=== PATIENT | female | born 1975 | race Caucasian/White ===

== ENCOUNTER 2017-02-11 15:24 | Observation (INO) ==
[2017-02-11 16:22] LABS: INR 1.3
[2017-02-11 16:31] LABS: BUN/Creatinine Ratio 12 (6-26); Basophils % 0.4 %; Blood Urea Nitrogen 10 mg/dL (7-20); Calcium 9.8 mg/dL (8.6-10.8); Carbon Dioxide 24 mEq/L (19-29); Chloride 106 mEq/L (98-109); Eosinophils # 0.2 K/mcL (0.0-0.6); Glucose 128 mg/dL (70-99); Hemoglobin 10.5 g/dL (11.5-15.4); Immature Granulocytes % 0.3 % (0-4); Lymphocytes # 1.4 K/mcL (0.6-4.6); Lymphocytes % 19.2 %; Mean Corpuscular HGB Conc 29.2 g/dL (31.6-35.5); Mean Corpuscular Hemoglobin 22.4 pg (28.0-33.3); Mean Corpuscular Volume 76.9 fL (83.0-100.0); Mean Platelet Volume 9.8 fL (9.4-12.4); Monocytes # 0.6 K/mcL (0.0-1.3); Neutrophils # 5.3 K/mcL (1.6-8.9); Osmolality,Calculated 285 (280-300); Platelet Count 336 K/mcL (140-400); Potassium 3.7 mEq/L (3.5-4.5); Red Blood Count 4.68 M/mcL (3.82-4.97); Red Cell Distribution Width 17.2 % (11.5-14.5); Segmented Neutrophils % 70.1 %; Sodium 137 mEq/L (136-145); eGFR For African Americans > 60 (> 60); eGFR For Non-African Americans > 60 (> 60)
--- NOTE | 2017-02-11 16:58 | Emergency Department Note ---
Disposition Clinical Impression: Chest pain Qualifiers: Chest pain type: unspecified Qualified Code(s): R07.9 - Chest pain, unspecified Abdominal pain Qualifiers: Abdominal location: epigastric Qualified Code(s): R10.13 - Epigastric pain Intractable nausea and vomiting Qualifiers: Vomiting type: unspecified Qualified Code(s): R11.2 - Nausea with vomiting, unspecified Disposition: Admitted As Inpatient Condition: Good Chest Pain HPI - General Chief Complaint: ED Chest Pain Stated Complaint: Chest Pains / pressure Time Seen by Provider: 02/11/17 16:19 Source: patient Mode of arrival: ambulatory Limitations: no limitations Vital Signs Reviewed: Yes Nursing Notes Reviewed: Yes - History of Present Illness HPI Narrative: 41-year-old female presents with concerns of intermittent chest pain and pressure over the past 4 days. Patient states that the pain became progressively worse over the past 12 hours. No history of pain like this in the past. She does have a history of gastric bypass. No history of peptic ulcer disease. She does report the pain did worsen after eating a portobello mushroom at one point however the pain is present without eating as well. Patient denies associated shortness of breath although she does have nausea without vomiting. Patient denies palpitations, diaphoresis. Severity scale (1-10): 8 - Related Data Home Medications Medication Instructions Recorded Confirmed ARIPiprazole [Abilify] 10 mg PO DAILY 02/11/17 02/11/17 Albuterol Sulfate [Ventolin Hfa] 2 puff IH Q4-6H PRN 02/11/17 02/11/17 Atorvastatin [Lipitor] 10 mg PO HS 02/11/17 02/11/17 Docusate [Colace] 100 mg PO BID PRN 02/11/17 02/11/17 Gabapentin [Neurontin] 600 mg PO QID 02/11/17 02/11/17 Loratadine [Claritin] 10 mg PO DAILY 02/11/17 02/11/17 Oxycodone HCl 10 mg PO QID 02/11/17 02/11/17 Prazosin [Minipress] 1 mg PO HS 02/11/17 02/11/17 Quetiapine Fumarate [Seroquel Xr] 100 mg PO HS 02/11/17 02/11/17 Ranitidine HCl [Zantac] 150 mg PO BID 02/11/17 02/11/17 cloNIDine HCl [CloNIDine HCl] 0.1 mg PO HS 02/11/17 02/11/17 Allergies Allergy/AdvReac Type Severity Reaction Status Date / Time No Known Allergies Allergy Verified 02/11/17 15:29 All systems ED: reviewed and negative except as stated. Limitations: ROS unobtainable due to patients medical condition Cardiovascular: Reports: chest pain. Denies: palpitations, dyspnea on exertion Respiratory: Reports: cough. Denies: dyspnea, wheezes Gastrointestinal: Reports: abdominal pain, nausea, vomiting. Denies: diarrhea Chest Pain PMH - Past Medical History Medical history: Reports: asthma, diabetes, hyperlipidemia Psychiatric history: Reports: anxiety, depression - Social History Smoking Status: Current every day smoker Alcohol use: Reports: none Drug use: Reports: none Physical Exam General: Alert and in no acute distress Skin: Warm, dry, intact Head: Normocephalic and atraumatic Neck: Supple, trachea midline and no tenderness Cardiovascular: RRR, no murmur, normal perfusion Respiratory: CTAB, no wheezing, cough, or respiratory distress Musculoskeletal: Normal strength, no tenderness, swelling or deformity GI: Soft, mild epigastric tenderness to palpation without evidence of rigidity, guarding, or rebound. nondistended. Bowel sounds present Neuro: A&O to person, place, time and situation. No focal deficits noted on exam Psychiatric: cooperative and appropriate mood and affect. - General General appearance: alert, in no apparent distress Course Vital Signs Temperature 98.2 F 02/11/17 15:26 Pulse Rate 95 02/11/17 15:26 Respiratory Rate 16 02/11/17 15:26 Blood Pressure 130/79 02/11/17 15:26 O2 Sat by Pulse Oximetry 95 02/11/17 15:26 Temperature 98.5 F 02/11/17 21:54 Pulse Rate 74 02/11/17 21:54 Respiratory Rate 16 02/11/17 21:54 Blood Pressure 135/76 02/11/17 21:54 O2 Sat by Pulse Oximetry 97 02/11/17 21:54 Oxygen Delivery Oxygen Delivery Room Air Chest Pain - MDM Narrative Medical decision making narrative: CT of the abdomen ordered secondary to patient's epigastric pain in the setting of a history of gastric bypass. Initial troponin negative. EKG showed normal sinus rhythm with rate of 94 without evidence of STEMI. Patient has heart score of 4. She will be admitted to the hospital for further care and evaluation. - Medical Records Medical records reviewed: Yes I reviewed the patient's medical records. - Lab Data Lab results reviewed: Yes I reviewed the patient's lab results. Result diagrams: 02/11/17 16:02 02/11/17 16:02 Lab Results 02/11/17 02/11/17 02/11/17 Range/Units 16:02 16:02 16:02 WBC 7.5 (4.3-11.1) K/mcL RBC 4.68 (3.82-4.97) M/mcL Hgb 10.5 L (11.5-15.4) g/dL Hct 36.0 (35.3-44.9) % MCV 76.9 L (83.0-100.0) fL MCH 22.4 L (28.0-33.3) pg MCHC 29.2 L (31.6-35.5) g/dL RDW 17.2 H (11.5-14.5) % Plt Count 336 (140-400) K/mcL MPV 9.8 (9.4-12.4) fL Immature Gran % 0.3 (0-4) % Seg Neutrophils % 70.1 % Lymphocytes % 19.2 % Monocytes % 8.0 % Eosinophils % 2.0 % Basophils % 0.4 % Neutrophils # 5.3 (1.6-8.9) K/mcL Lymphocytes # 1.4 (0.6-4.6) K/mcL Monocytes # 0.6 (0.0-1.3) K/mcL Eosinophils # 0.2 (0.0-0.6) K/mcL Basophils # 0.0 (0.0-0.2) K/mcL PT 14.0 H (9.4-12.1) Seconds INR 1.3 APTT 29.0 (26.0-36.0) Seconds Sodium 137 (136-145) mEq/L Potassium 3.7 (3.5-4.5) mEq/L Chloride 106 (98-109) mEq/L Carbon Dioxide 24 (19-29) mEq/L BUN 10 (7-20) mg/dL Creatinine 0.81 (0.57-1.11) mg/dL Est GFR ( Amer) > 60 (> 60) Est GFR (Non-Af Amer) > 60 (> 60) BUN/Creatinine Ratio 12 (6-26) Glucose 128 H (70-99) mg/dL Calculated Osmolality 285 (280-300) Calcium 9.8 (8.6-10.8) mg/dL Troponin I (0-0.03) ng/mL 02/11/17 02/11/17 Range/Units 16:02 19:13 WBC (4.3-11.1) K/mcL RBC (3.82-4.97) M/mcL Hgb (11.5-15.4) g/dL Hct (35.3-44.9) % MCV (83.0-100.0) fL MCH (28.0-33.3) pg MCHC (31.6-35.5) g/dL RDW (11.5-14.5) % Plt Count (140-400) K/mcL MPV (9.4-12.4) fL Immature Gran % (0-4) % Seg Neutrophils % % Lymphocytes % % Monocytes % % Eosinophils % % Basophils % % Neutrophils # (1.6-8.9) K/mcL Lymphocytes # (0.6-4.6) K/mcL Monocytes # (0.0-1.3) K/mcL Eosinophils # (0.0-0.6) K/mcL Basophils # (0.0-0.2) K/mcL PT (9.4-12.1) Seconds INR APTT (26.0-36.0) Seconds Sodium (136-145) mEq/L Potassium (3.5-4.5) mEq/L Chloride (98-109) mEq/L Carbon Dioxide (19-29) mEq/L BUN (7-20) mg/dL Creatinine (0.57-1.11) mg/dL Est GFR ( Amer) (> 60) Est GFR (Non-Af Amer) (> 60) BUN/Creatinine Ratio (6-26) Glucose (70-99) mg/dL Calculated Osmolality (280-300) Calcium (8.6-10.8) mg/dL Troponin I 0.00 0.00 (0-0.03) ng/mL - Radiology Data Radiology results reviewed: Yes I reviewed the patient's radiology results. Heart Score - Score History: Moderately Suspicious EKG: Normal Age: Less than 45 Risk Factors: Equal/Greater than 3 risk factor or history of atherosclerotic disease Troponin: Less than normal limit HEART Score Total: 3
[2017-02-11] MEDS ORDERED: Acetaminophen 325 MG TABLET PO ONE (17:32)
[2017-02-11] MEDS ORDERED: Nitroglycerin 0.4 MG TAB.SUBL SL PRN (17:32)
[2017-02-11] MEDS ORDERED: Ondansetron 4 MG/2 ML VIAL IVP ONE (18:45)
[2017-02-11] MEDS ORDERED: GI Cocktail 40 ML EACH PO ONE (18:46)
[2017-02-11] MEDS ORDERED: *HR* Morphine 2 MG/ML SYRINGE IVP ONE (18:46)
[2017-02-11] MEDS ORDERED: MetroNIDAZOLE 500 MG/100 ML 500 MG/100 ML BAG IVPB ONE (20:17)
--- NOTE | 2017-02-11 23:23 | Internal Med History&Physical ---
Date of Encounter: 02/11/17 Time of Encounter: 23:23 Assessment and Plan (1) Chest pain Current visit: Yes Status: Acute patient with no known prior hx of CAD comes in with chest pain with both typical and atypical features, she has significant risk factors that are concerning so it will be reasonable to order a stress test, her admission EKG was unremarkable for ischemia, troponin was unremarkable, will check lipid and A1c for risk stratification, will cycle troponin, telemonitor, NPO post midnight for stress test Qualifiers: Chest pain type: intercostal pain Qualified Code(s): R07.82 - Intercostal pain (2) Intractable nausea and vomiting Current visit: Yes Status: Acute she comes in with this and there are findings for inflammatory vs infectious process near her anastomoses, she received Abx in the ER but it is unclear if medications are warranted considering her normal vitals and labs, we will treat supportively for now whilst we continue to investigate and monitor Qualifiers: Vomiting type: unspecified Qualified Code(s): R11.2 - Nausea with vomiting , unspecified (3) Diabetes Current visit: Yes Status: Chronic she reports DM type 2 for which she used to be on insulin but she is currently off medications and is diet controlled after she lost a lot of weight post gastric bypass, we will check her A1c and proceed from there Qualifiers: Diabetes mellitus type: type 2 Diabetes mellitus complication status: with neurologic complications Diabetes mellitus complication detail: with polyneuropathy Diabetes mellitus termite inspector insulin use: without termite inspector use Qualified Code(s): E11.42 - Type 2 diabetes mellitus with diabetic polyneuropathy (4) GERD (gastroesophageal reflux disease) Current visit: Yes Status: Chronic will continue her home ranitidine Qualifiers: Esophagitis presence: without esophagitis Qualified Code(s): K21.9 - Gastro -esophageal reflux disease without esophagitis Internal Medicine - H&P: HPI Chief complaint: Chest pain Admitted From: Emergency Dept Plans for Post Hospital Care: Home History of present illness: Ms. Gallagher is a 41 year old female with a history of chronic back pain on opioids was brought in today for chest pressure. She reports feeling unwell for a couple of days now with intermittent chest pressure over the left side of her chest. This has been ongoing but she tried to pay it no mind. In addition she has also been having nausea, vomiting, inability to keep any food down, poor appetite and dry heaves. Today she was having dry heaves when she had resurgence of the chest pain so her mother asked her to come to the ER for further evaluation. She denies any radiation of her pain, the severity is 8/10 and is pressure-like/heaviness in character and has been constant since it returned today. She reports no radiation of the pain. She denies prior CAD hx or stress test. She reports diffuse abdominal pain in addition to her other symptoms, no change in bowel habits per patient. In the ER abdominal CT reported inflammatory vs infectious changes around her gastric anastomosis. She is being admitted for further workup. PAST MEDICAL/SURGICAL HISTORY DM type 2 currently diet controlled Asthma Non Hodgkin's Lymphoma as a child s/p chemo-radiation Osteomyelitis s/p right midtarsal amputation GERD Peripheral neuropathy Chronic back pain Gastric bypass surgery Anxiety Depression had a colonoscopy in [place] about a year ago with normal findings, prior to that she had a colonoscopy 7 years prior with finding of 3 polyps, SOCIAL HISTORY She has been smoking 1ppd to 1 and a half ppd since the age of 89 years old, she used to drink alcohol heavily but hardly drinks anymore. FAMILY HISTORY Mother has COPD, father of lung cancer, multiple family members on her mother' side have CAD, brother had CAD in his early 30's. Past Med Surg Social Fam HX - Past Medical History Medical history: asthma, diabetes, hyperlipidemia Psychiatric history: anxiety, depression - Social History Smoking Status: Current every day smoker Alcohol use: none Drug use: none - Family History Mother Living Status: Still Living Hx Family Cardiac Disorders: No Hx Family Respiratory Disorders: Yes (COPD) Internal Medicine - H&P: Meds ARIPiprazole [Abilify] 10 mg PO DAILY 02/11/17 [History] Albuterol Sulfate [Ventolin Hfa] 2 puff IH Q4-6H PRN 02/11/17 [History] Atorvastatin [Lipitor] 10 mg PO HS 02/11/17 [History] Docusate [Colace] 100 mg PO BID PRN 02/11/17 [History] Gabapentin [Neurontin] 600 mg PO QID 02/11/17 [History] Loratadine [Claritin] 10 mg PO DAILY 02/11/17 [History] Oxycodone HCl 10 mg PO QID 02/11/17 [History] Prazosin [Minipress] 1 mg PO HS 02/11/17 [History] Quetiapine Fumarate [Seroquel Xr] 100 mg PO HS 02/11/17 [History] Ranitidine HCl [Zantac] 150 mg PO BID 02/11/17 [History] cloNIDine HCl [CloNIDine HCl] 0.1 mg PO HS 02/11/17 [History] Allergies No Known Allergies Allergy (Verified 02/11/17 15:29) All Systems PM: A 10-system review of systems was performed and is negative for pertinent findings except as documented above in the HPI. - Constitutional Vitals: Temp Pulse Resp BP Pulse Ox 98.5 F 74 16 135/76 97 02/11/17 21:54 02/11/17 21:54 02/11/17 21:54 02/11/17 21:54 02/11/17 21:54 GENERAL: Adult female, lying in bed looking miserable, Alert, HEENT: NC/AT, EOMI, PERRLA, anicteric sclera, normal conjunctiva, supple, clear nares, dry mucous membranes, RESP: Lungs are clear to auscultation bilaterally, good AE bilaterally, No crackles or wheeze CARDIO: Normal hearts sounds; S1 and 2, RRR with no murmurs, no JVD, no ankle edema GI: Soft, full, tenderness around the epigastric area, no organomegaly felt, normal bowel sounds heard MUSCULOSKELETAL: grossly normal movements bilaterally, has right midtarsal amputation NEUROLOGIC: CN 2-12 intact grossly. No gross motor/sensory deficit appreciated, PSYCHIATRY: AAO x 3. Mood is fair, SKIN: no skin rash or ulcers noted Internal Med - H&P Results - Labs CBC & Chem 7: 02/12/17 03:55 02/12/17 03:55 - Diagnostic Studies Chest x-ray Status: image reviewed by me CT scan - abdomen Status: image reviewed by me
[2017-02-11] MEDS ORDERED: Naloxone 0.4 MG/ML INJ IVP PRN (23:44)
[2017-02-11] MEDS ORDERED: *HR* Dextrose 50 % in Water (Syg) 50 ML SYRINGE IVP PRN (23:51)
[2017-02-11] MEDS ORDERED: Dextrose Gel 15 GM PO PRN ×2 (23:51)
[2017-02-11] MEDS ORDERED: D5% in Water 1,000 ML IVC PRN (23:51)
[2017-02-11] MEDS ORDERED: Albuterol 2.5 MG/3 ML NEBULIZER IH PRN (23:51)
[2017-02-11] MEDS: Ondansetron 4 MG/2 ML VIAL IVP PRN (23:57)
[2017-02-12] MEDS: *HR* HYDROmorphone (PF) 1 MG/ML SYRINGE IVP PRN ×6 (00:10→22:30)
[2017-02-12] MEDS: Insulin LISPRO 300 UNITS/3 ML VIAL SQ SCH ×4 (00:34→17:55)
[2017-02-12] MEDS: Metoclopramide 10 MG/2 ML VIAL IVP PRN ×2 (03:19→20:25)
[2017-02-12 04:26] LABS: Hematocrit 31.6 % (35.3-44.9); Hemoglobin 9.2 g/dL (11.5-15.4); Mean Corpuscular HGB Conc 29.1 g/dL (31.6-35.5); Mean Corpuscular Hemoglobin 22.4 pg (28.0-33.3); Mean Corpuscular Volume 76.9 fL (83.0-100.0); Platelet Count 294 K/mcL (140-400); Red Blood Count 4.11 M/mcL (3.82-4.97); Segmented Neutrophils % 62.3 %
[2017-02-12 04:27] LABS: Basophils % 0.4 %; Eosinophils # 0.1 K/mcL (0.0-0.6); Eosinophils % 1.9 %; Immature Granulocytes % 0.4 % (0-4); Lymphocytes # 1.9 K/mcL (0.6-4.6); Lymphocytes % 24.9 %; Monocytes # 0.8 K/mcL (0.0-1.3); Monocytes % 10.1 %; Neutrophils # 4.6 K/mcL (1.6-8.9)
[2017-02-12 04:40] LABS: Hemoglobin A1C 5.6 %
[2017-02-12 04:50] LABS: BUN/Creatinine Ratio 11 (6-26); Blood Urea Nitrogen 8 mg/dL (7-20); Calcium 9.4 mg/dL (8.6-10.8); Carbon Dioxide 27 mEq/L (19-29); Chloride 105 mEq/L (98-109); Chol/HDL Ratio 10.5 (0-4.9); Cholesterol 209 mg/dL (< 200); Glucose 87 mg/dL (70-99); HDL Cholesterol 20 mg/dL (40-59); LDL Cholesterol,Calculated 155 mg/dL (0-99); Osmolality,Calculated 284 (280-300); Phosphorous 3.6 mg/dL (2.3-4.7); Potassium 3.7 mEq/L (3.5-4.5); Sodium 138 mEq/L (136-145); Triglycerides 170 mg/dL (< 150); eGFR For African Americans > 60 (> 60); eGFR For Non-African Americans > 60 (> 60)
[2017-02-12] MEDS ORDERED: Regadenoson 0.4 MG/5 ML SYRINGE IVP ONE (05:54)
[2017-02-12] MEDS: Ondansetron 4 MG/2 ML VIAL IVP PRN ×3 (06:18→14:16)
[2017-02-12] MEDS ORDERED: Famotidine 20 MG TABLET PO SCH (09:00)
[2017-02-12] MEDS: *HR* Heparin 5,000 UNIT/ML VIAL SQ SCH ×3 (09:08→22:31)
[2017-02-12] MEDS: ARIPiprazole 10 MG TABLET PO SCH (09:09)
[2017-02-12] MEDS: Gabapentin 300 MG CAPSULE PO SCH ×4 (09:09→20:34)
[2017-02-12] MEDS: Loratadine 10 MG TABLET PO SCH (09:09)
--- NOTE | 2017-02-12 09:33 | Electrocardiograph Report ---
[address] [place], [place] [address] Test Date: 2017-02-11 Pat Name: Martha Gallagher Department: 102 Room: 3B24 Gender: F Mid Level Business Analyst: : 1975 Requested By: James Simon Order Number: [id number] Reading MD: Juancho Ovalle MD Measurements Intervals [place] Rate: 94 P: 62 WA: 146 QRS: -24 QRSD: 92 T: 56 QT: 371 QTc: 423 Interpretive Statements SINUS RHYTHM BORDERLINE LEFT AXIS DEVIATION Electronically Signed On 02-12-2017 9:32:11 EDT by Juancho Ovalle MD
[2017-02-12] MEDS: Nicotine 7 MG PATCH.TD24 TD SCH (12:26)
[2017-02-12] MEDS: Sucralfate 1 GM TABLET PO SCH ×3 (12:27→22:30)
[2017-02-12] MEDS: Ringers Solution, Lactated 1,000 ML IVC SCH ×3 (14:17→22:17)
--- NOTE | 2017-02-12 17:43 | Internal Med Progress Note ---
Date of Encounter: 02/12/17 Time of Encounter: 09:55 - Assessment and plan (1) Chest pain Current Visit: Yes Status: Acute Assessment and plan: Patient reports upper left chest pain, as well as diffuse abdominal pain. She states it is better now and rates it 3-4/10. She reports the chest pain has been intermittent for the past couple of days. She also has associated, nausea , vomiting. The pain does not radiate and at its worst is an 8/10 and is pressure-like and have a period she denies radiation of the pain. She denies prior history of coronary artery disease or stress test. Troponins were negative 2. Chest x-ray was negative. EKG was sinus rhythm rate 94, purulent over 146, QRS duration 92, QTC 423. The pain is nonreproducible with palpation, movement, deep inspiration. She is tender in the upper abdomen and epigastric area. Continue telemetry Stress test finished tomorrow Continue to monitor labs. Chest X-Ray 02/11/17 15:30 IMPRESSION: No acute cardiopulmonary abnormality D/ / Jun Montes / Jun Montes Interpreting Provider: Jun Montes Qualifiers: Chest pain type: intercostal pain Qualified Code(s): R07.82 - Intercostal pain (2) Abdominal pain Current Visit: Yes Status: Acute Assessment and plan: Patient reports intractable nausea and vomiting and abdominal pain for 6-7 days. She had chest pressure may be associated with the abdominal pain. Abdomen is diffusely tender upper quadrants. She reports decreased by mouth food and fluid intake over the last week. She appears to be euvolemic and has no electrolyte abnormalities. She has been treated with antiemetics and IV fluids. Abdominal CT shows no gallstones, gallbladder ultrasound shows mildly dilated common bile duct 7 mm. Monitor labs in the morning. Abdomen/Pelvis CT 02/11/17 16:55 IMPRESSION: Postop changes in the left upper quadrant. Near the gastric anastomosis, there stranding in the fat. Inflammatory/infectious process is possible. Wall thickening in this region would be difficult to exclude Multiple nonspecific small retroperitoneal and mesenteric lymph nodes Low-density adrenal lesion with associated calcification. Low-density is likely due to adenomas. Calcification is likely due to prior insult. Bilateral renal lesions as described. Most are too small to characterize. There is an indeterminate lesion in the left kidney medially. Multiple lobular low-density foci in the adnexa bilaterally. Bilateral adnexal cysts are favored. The fat density adjacent to the right adnexa is likely volume averaging. A small dermoid less likely. Heterogeneous uterus raising the question of fibroids. D/ / Jun Montes / Jun Montes Interpreting Provider: Jun Montes Gallbladder Ultrasound 02/12/17 13:30 IMPRESSION: Mildly dilated common bile duct at 7 mm which appears similar to the CT. Otherwise unremarkable right upper quadrant ultrasound. No significant gallbladder pathology. D/ / Patrick Santo MD / Patrick Santo MD Interpreting Provider: Patrick Santo MD Qualifiers: Abdominal location: upper abdomen, unspecified Qualified Code(s): R10.10 - Upper abdominal pain, unspecified (3) Intractable nausea and vomiting Current Visit: Yes Status: Acute Assessment and plan: Patient states that she is feeling better. We will continue IV hydration and antibiotics. She does not appear to have any electrolyte imbalances. Will monitor overnight and recheck labs in the morning. Qualifiers: Vomiting type: unspecified Qualified Code(s): R11.2 - Nausea with vomiting , unspecified (4) Diabetes Current Visit: Yes Status: Chronic Assessment and plan: A1c is 5.6. Patient states that she is not on any medications anymore. Continue Accu-Cheks. Qualifiers: Diabetes mellitus type: type 2 Diabetes mellitus complication status: with neurologic complications Diabetes mellitus complication detail: with polyneuropathy Diabetes mellitus mcfp insulin use: without technician terminal and repeater use Qualified Code(s): E11.42 - Type 2 diabetes mellitus with diabetic polyneuropathy (5) GERD (gastroesophageal reflux disease) Current Visit: Yes Status: Chronic Assessment and plan: Patient reports chronic GERD. Says she has been on Nexium and is no longer working. I will start omeprazole 20 mg by mouth twice a day as well as Carafate. Patient is tender in epigastric area, as well as right upper quadrant. She states that she has not been able to eat for 6-7 days and has not been able to keep fluid down for 3 days. She reports onset of sharp upper left chest pain after eating fried foods yesterday. Qualifiers: Esophagitis presence: without esophagitis Qualified Code(s): K21.9 - Gastro -esophageal reflux disease without esophagitis (6) DVT prophylaxis Current Visit: Yes Status: Acute Assessment and plan: Subcutaneous heparin. (7) Hyperlipidemia Current Visit: Yes Status: Acute Assessment and plan: Lipid panel is elevated. Patient currently takes Lipitor 10 mg daily. She said she is not interested in increasing the dose. Qualifiers: Hyperlipidemia type: unspecified Qualified Code(s): E78.5 - Hyperlipidemia , unspecified - Time Spent With Patient less than 15 minutes - Subjective Interval history: Patient was seen and assessed at 9:55 AM. Patient states that she is feeling better today and reports her overall discomfort 3-11/02. Patient reports pain in her upper left chest and diffuse abdominal pain. She says she has not been able to hold down any food for 6-7 days and no fluid for 3-4 days. She reports left chest pressure for the last 3-4 days, onset of sharp pain in left upper chest yesterday after eating. Patient had a brother who a year ago from what sounds to be a perforated bowel. Unknown etiology. She denies any shortness of breath, she has nausea and vomiting from the abdominal pain. She is tender to palpation in upper abdomen diffusely, worse in right upper quadrant. She says that she had a scope about caramel in the ENT office for GERD. She says that she has been on Nexium for years. I will start her on omeprazole 20 mg by mouth twice a day and Carafate 4 times daily. Patient also reports that she has iron deficiency anemia and is not always good with taking iron supplementation. Is not currently listed as a home medication. I suggested a follow up with GI, she said that she is not going to be staying in the area very long and will not be able to follow up. She states that she lives in [place] and will be going to [place] for a few months in the next 2 -3 weeks, then she will be going back to [place] at the end of the year. - Constitutional Vitals: Temp Pulse Resp BP Pulse Ox 98.4 F 67 15 105/71 93 02/12/17 15:49 02/12/17 15:49 02/12/17 15:49 02/12/17 15:49 02/12/17 15:49 General appearance: Present: A&O X 3, pleasant, no acute distress, answers questions appropriately - Head Head exam: Present: normal inspection - Eye Eye exam: Present: normal appearance, conjuntiva pink - ENT ENT exam: Present: mucous membranes moist, normal exam, normal external ear exam - Neck Neck exam general surgery: Present: normal inspection. Absent: lymphadenopathy , tenderness - Respiratory Respiratory exam: Present: CTAB. Absent: rales, rhonchi, stridor, wheezes - Cardiovascular Cardiovascular exam: Present: RRR, +S1, +S2. Absent: diastolic murmur, systolic murmur - GI/Abdominal GI/Abdominal exam: Present: distended, normal bowel sounds, soft, tenderness - Extremities Exam Extremities exam: Present: normal capillary refill, warm, radial pulses palpable and symetrical. Absent: pedal edema, tenderness - Neurological Exam Neurological exam: Present: alert, oriented X3, no focal deficits. Absent: facial droop, speech deficit Internal Medicine: Result - Labs CBC & Chem 7: 02/12/17 03:55 02/12/17 03:55 Labs: Short CBC 02/12/17 Range/Units 03:55 WBC 7.4 (4.3-11.1) K/mcL Hgb 9.2 L (11.5-15.4) g/dL Hct 31.6 L (35.3-44.9) % Plt Count 294 (140-400) K/mcL Neutrophils # 4.6 (1.6-8.9) K/mcL BMP 02/12/17 03:55 Sodium 138 Potassium 3.7 Chloride 105 Carbon Dioxide 27 BUN 8 Creatinine 0.74 Glucose 87 Calcium 9.4 - ABG Interpretation ABG results: PT/INR, D-dimer PT 14.0 Seconds (9.4-12.1) H 02/11/17 16:02 - Impressions Impressions Gallbladder Ultrasound 02/12/17 13:30 IMPRESSION: Mildly dilated common bile duct at 7 mm which appears similar to the CT. Otherwise unremarkable right upper quadrant ultrasound. No significant gallbladder pathology. D/ / Patrick Santo MD / Patrick Santo MD Interpreting Provider: Patrick Santo MD Consult Discharge Plan - Plan Referrals: NO,PCP [Primary Care Provider] -
[2017-02-12] MEDS ORDERED: cloNIDine HCl 0.1 MG TABLET PO SCH (21:00)
[2017-02-13] MEDS: Ringers Solution, Lactated 1,000 ML IVC SCH ×3 (03:59→17:17)
[2017-02-13] MEDS: Insulin LISPRO 300 UNITS/3 ML VIAL SQ SCH ×4 (03:59→17:26)
[2017-02-13] MEDS: *HR* HYDROmorphone (PF) 1 MG/ML SYRINGE IVP PRN ×5 (04:24→21:29)
[2017-02-13] MEDS: Metoclopramide 10 MG/2 ML VIAL IVP PRN ×2 (04:24→20:59)
[2017-02-13 05:37] LABS: Basophils % 0.3 %; Eosinophils # 0.1 K/mcL (0.0-0.6); Eosinophils % 1.5 %; Hematocrit 30.8 % (35.3-44.9); Hemoglobin 8.9 g/dL (11.5-15.4); Immature Granulocytes % 0.3 % (0-4); Lymphocytes # 1.6 K/mcL (0.6-4.6); Mean Corpuscular HGB Conc 28.9 g/dL (31.6-35.5); Mean Corpuscular Hemoglobin 22.4 pg (28.0-33.3); Mean Corpuscular Volume 77.6 fL (83.0-100.0); Mean Platelet Volume 10.1 fL (9.4-12.4); Monocytes # 0.8 K/mcL (0.0-1.3); Neutrophils # 4.2 K/mcL (1.6-8.9); Platelet Count 263 K/mcL (140-400); Red Blood Count 3.97 M/mcL (3.82-4.97); Red Cell Distribution Width 16.7 % (11.5-14.5); Segmented Neutrophils % 61.9 %
[2017-02-13 05:58] LABS: Anisocytosis 2+ (Not Present); Hypochromasia Present (Not Present); Platelet Estimate Normal (Normal)
[2017-02-13 06:02] LABS: Albumin/Globulin Ratio 0.8 (1.1-2.2); Alkaline Phosphatase 83 Units/L (38-126); Aspartate Amino Transferase 7 Units/L (5-34); BUN/Creatinine Ratio 10 (6-26); Bilirubin,Direct 0.1 mg/dL (0.0-0.5); Bilirubin,Indirect 0.3 mg/dL (0.0-1.2); Bilirubin,Total 0.4 mg/dL (0.2-1.2); Blood Urea Nitrogen 8 mg/dL (7-20); Calcium 9.2 mg/dL (8.6-10.8); Carbon Dioxide 27 mEq/L (19-29); Chloride 107 mEq/L (98-109); Globulin 3.8 g/dL (2.4-3.5); Glucose 104 mg/dL (70-99); Osmolality,Calculated 287 (280-300); Potassium 3.7 mEq/L (3.5-4.5); Sodium 139 mEq/L (136-145); Total Protein 6.8 g/dL (6.0-8.3); eGFR For African Americans > 60 (> 60); eGFR For Non-African Americans > 60 (> 60)
[2017-02-13 06:03] LABS: Alanine Aminotransferase < 6 Units/L (0-55)
[2017-02-13] MEDS: *HR* Heparin 5,000 UNIT/ML VIAL SQ SCH ×3 (06:18→20:59)
[2017-02-13] MEDS: Sucralfate 1 GM TABLET PO SCH ×4 (08:17→20:59)
[2017-02-13] MEDS: Ondansetron 4 MG/2 ML VIAL IVP PRN ×2 (08:17→17:17)
[2017-02-13] MEDS: ARIPiprazole 10 MG TABLET PO SCH (08:17)
[2017-02-13] MEDS: Nicotine 7 MG PATCH.TD24 TD SCH (08:18)
[2017-02-13] MEDS: Gabapentin 300 MG CAPSULE PO SCH ×4 (08:18→20:58)
[2017-02-13] MEDS: Loratadine 10 MG TABLET PO SCH (08:18)
--- NOTE | 2017-02-13 12:21 | Nuclear Medicine Stress Report ---
Regadenoson Nuclear Stress Name: Martha Gallagher Date of Study: 02/12/2017 Date: 1975 Ht: 70.0 in Medical Record#: [id number] Age: 41 Wt: 230.0 lb Gender: Female Order #: [id number] Location: [facility] Room: [facility] Supervising Provider: Mary Jordan CNP Reading Physician: James Paulino MD, [facility] Ordering Physician: Katie Payne CNP Primary Care Physician: none Stress Technologist: Esther Reeder RRT [place] Roofer Helper: Maria Luisa Maldonado Indications: Chest Pain Impression: Patient reported chest pressure prior to the test. Chest pressure did not change during the test. No significant ECG changes with regadenoson. The left ventricle is mildly dilated. Gated LVEF = 62%. There is a small sized, mild-moderate intensity, reversible perfusion defect involving the basal-mid anterior wall. Findings are consistent with a small area of mild-moderate reversible ischemia. Abnormal results were discussed with the ordering provider. Please note that this study was performed yesterday morning, but was not assigned to be interpreted by a coppersmith apprentice until today due to an oversight by the nuclear medicine department. The patient will be seen today by the inpatient cardiology consult service. History: Diabetes Hypercholesteremia History of Smoking Stress Test Summary: Stress Test Type: Pharmacologic Regadenoson 0.4mg/5ml given IV Baseline Information: Initial Heart Rate: 73 Blood Pressure: 108/62 Stress Information: Test Terminated Due to (primary): As per protocol Maximum Blood Pressure: 110/64 Maximum Heart Rate: 105 Percent Maximum Heart Rate Achieved: 59 Double Product: [id number] Symptoms: Chest pressure Nuclear Summary: SPECT myocardial perfusion imaging using Tc99m Sestamibi given intravenously was performed at rest and following cardiac stress testing. The resting images were obtained following initial dose of 11.8 mCi. Following stress an additional dose of 35.2 mCi was given at peak exercise or 30 seconds post regadenoson infusion. Findings: Stress Note * Resting ECG demonstrated sinus rhythm, non-specific ST-T wave abnormality. * No baseline arrhythmias were noted. * Patient reported chest pressure prior to the test. Chest pressure did not change during the test. * No arrhythmias were noted during stress. * No significant ECG changes with regadenoson. Hemodynamic responses * Normal hemodynamic responses to pharmacologic stress. Study Quality * Study quality was average. Left Ventricle * The left ventricle is mildly dilated. Gated EF % * Gated LVEF = 62%. * There is a small sized, mild-moderate intensity, reversible perfusion defect involving the basal-mid anterior wall. Findings are consistent with a small area of mild-moderate reversible ischemia. * Inferior wall artifact is noted. * All other segmental perfusion normal in rest and stress. TID * No evidence of transient ischemic dilatation. Updated by James Paulino MD, FACC on 02/13/2017 12:17:03 PM electronically signed on 02/13/2017 12:17:55 PM with status of Final
--- NOTE | 2017-02-13 14:56 | Cardiology Consult Note ---
Date of Encounter: 02/13/17 Time of Encounter: 14:00 Assessment and Plan (1) Chest pain Current Visit: Yes Status: Acute Per cardiology: -Chest pain/pressure that started at rest. -Patient denies aggravating factors. -Pain relieved with rest and with patient holding chest. -ECG with no ishemic changes. -Troponins negative x3. -Nuclear stress 02/12/17 with gated LVEF 62%, small sized mild-moderate intensity , reversible perfusion defect involving basal-mid anterior wall. Findings consistent with small area of mild-moderate reversible ischemia. Of note, this study was completed 02/12/17 however, was not assigned to reading picker packer until today, 02/13/17. This was due to an oversight by nuclear medicine department. -Patient denies current chest pain. -Has risk factors for CAD; HTN, hyperlipidemia, smoking. -Average HR previous 12 hours noted to be 63. -Discussed at length with patient regarding abnormal stress test. Offered patient outpatient follow up for abnormal stress test, however patient states she would not follow up in cardiology clinic. Patient states she is not good at keeping follow up appointments. Patient states she would be agreeable to stay if further testing was necessary. -PLan for LHC after GI evaluation. -Statin changed to atorvastatin 40mg. ASA added. Will consider addition of beta reuben if BP and HR will tolerate. Qualifiers: Chest pain type: other chest pain Qualified Code(s): R07.89 - Other chest pain; R07.8 - Other chest pain (2) HTN (hypertension) Current Visit: Yes Status: Chronic Per cardiology: -Known history of HTN. -On clonidine 0.1mg daily and minipress 1mg daily, not recommend scheduling of medications. -BPs 100-120s systolic -Will stop clonidine. -Will continue to monitor. -Will consider addition of beta reuben if BP and HR will tolerate. Qualifiers: Hypertension type: essential hypertension Qualified Code(s): I10 - Essential (primary) hypertension (3) Anemia Current Visit: Yes Status: Acute Per cardiology: -Hemoglobin on admission 10.5. -Now 8.9. -Also reports abdominal pain. -Unknown baseline hemoglobin prior to admission. -Recommend GI consultation. Qualifiers: Anemia type: unspecified type Qualified Code(s): D64.9 - Anemia, unspecified (4) Hyperlipidemia Current Visit: Yes Status: Chronic Per cardiology: -KNown hyperlipidemia -On statin. -Triglycerdies 170, Choelserol 209, LDL 155, HDL 20. -Will change simvastatin to atorvastatin. Qualifiers: Hyperlipidemia type: unspecified Qualified Code(s): E78.5 - Hyperlipidemia , unspecified (5) Tobacco abuse Current Visit: Yes Status: Chronic Per cardiology: -KNown tobacco abuse. -SMokes 1-1.5 ppd for 33 years -I spent 3 minutes reviewing smoking cessation education with patient. Discussion w patient/family: The assessment and plan as outlined above was discussed with the patient who expressed understanding and agreement. All questions were answered. Thank you for involving us in the care of your patient. Please call with any questions. Discussed and reviewed with . History of Present Illness Consult date: 02/13/17 Requesting physician: Katie Payne Consult reason: abnormal stress test Chief complaint: abdominal/chest pain History of present illness: Ms. Gallagher is a 41 year old female with a relevant past medical history of HTN, obesity, hyperlipidemia, smoking, gastric bypass surgery, DM. Patient states she lives in [place] and is in [place] to visit family. Patient states she had severe abdominal pain with associated nausea and vomiting. Patient also reports chest pain that felt like pressure with some intermittent sharp pains. Patient states pain is left chest wall and radiated to left arm. Patient states pain started at rest. Patient states pain is relieved by rest and holding her chest. Patient denies aggravating factors. Patient states she has been getting these chest pressure/pains about once a month for the past few years. Patient reports shortness of breath and fatigue is about baseline. Past Med Surg Social Fam HX - Past Medical History Attestation: Yes The following information was validated with the patient. Source: patient Medical history: asthma, diabetes, hyperlipidemia Psychiatric history: anxiety, depression - Social History Smoking Status: Current every day smoker Alcohol use: none Drug use: none - Family History Mother Living Status: Still Living Hx Family Cardiac Disorders: No Hx Family Respiratory Disorders: Yes (COPD) Medications and Allergies ARIPiprazole [Abilify] 10 mg PO DAILY 02/11/17 [History] Albuterol Sulfate [Ventolin Hfa] 2 puff IH Q4-6H PRN 02/11/17 [History] Atorvastatin [Lipitor] 10 mg PO HS 02/11/17 [History] Docusate [Colace] 100 mg PO BID PRN 02/11/17 [History] Gabapentin [Neurontin] 600 mg PO QID 02/11/17 [History] Loratadine [Claritin] 10 mg PO DAILY 02/11/17 [History] Oxycodone HCl 10 mg PO QID 02/11/17 [History] Prazosin [Minipress] 1 mg PO HS 02/11/17 [History] Quetiapine Fumarate [Seroquel Xr] 100 mg PO HS 02/11/17 [History] Ranitidine HCl [Zantac] 150 mg PO BID 02/11/17 [History] cloNIDine HCl [CloNIDine HCl] 0.1 mg PO HS 02/11/17 [History] Allergies No Known Allergies Allergy (Verified 02/11/17 15:29) All Systems Review: A 10-system review of systems was performed and is negative for pertinent findings except as documented above in the HPI. - Cardiovascular Cardiovascular: as per HPI, chest pain at rest - Gastrointestinal Gastrointestinal: abdominal pain, nausea Physical Examination Vital Signs, Last 4 Hours Temp Pulse Resp BP Pulse Ox 02/13/17 10:58 98.0 F 61 16 123/54 99 General: Conversant, No Apparent Distress HEENT: Atraumatic, Normocephaly, Mucus Membranes Moist Neck: No JVD, Normal carotid pulses Cardiac: Reg Rate and Rhythm, Normal S1 and S2, No Murmur Lungs: Normal Breath Sounds, Other (Expiratory wheeze noted. ) Neuro: Alert and responsive, No focal deficits noted Abdomen: Soft, Non-Tender Skin: No rashes noted on visualized skin Musculoskeletal: No Chest Wall Tenderness Extremities: No Clubbing, No Cyanosis, No Edema, Normal Pulses Results 02/13/17 04:23 02/13/17 04:23 Lab Results Active Medications Albuterol Sulfate (Proventil Neb) 2.5 mg IH [id number] PRN; Protocol PRN Reason: Shortness Of Breath/Wheezing Stop: 08/13/17 23:52 Aripiprazole (Abilify) 10 mg PO DAILY [facility] Stop: 08/14/17 09:01 Last Admin: 02/13/17 08:17 Dose: 10 mg Clonidine HCl (Clonidine Hcl) 0.1 mg PO HS [facility] Stop: 08/14/17 21:01 Last Admin: 02/12/17 20:35 Dose: 0.1 mg Dextrose/Water (Dextrose 50% (Syg)) 25 ml IVP AD PRN PRN Reason: Hypoglycemia Stop: 08/13/17 23:52 Docusate Sodium (Colace) 100 mg PO BID PRN; Protocol PRN Reason: Constipation Stop: 08/13/17 23:47 Gabapentin (Neurontin) 600 mg PO QID [facility] Stop: 08/14/17 09:01 Last Admin: 02/13/17 11:32 Dose: 600 mg Glucagon (Glucagen) 1 mg IM ONCE PRN PRN Reason: Hypoglycemia Stop: 08/13/17 23:52 Glucose (Gluctose) 15 gm PO ONCE PRN PRN Reason: Hypoglycemia Stop: 08/13/17 23:52 Glucose (Gluctose) 30 gm PO ONCE PRN PRN Reason: Hypoglycemia Stop: 08/13/17 23:52 Heparin Sodium (Porcine) (Heparin) 5,000 unit SQ Q8HCO [facility] Stop: 08/14/17 07:01 Last Admin: 02/13/17 12:52 Dose: 5,000 unit Hydromorphone HCl (Dilaudid) 1 mg IVP Q4HR PRN PRN Reason: Pain>4 Stop: 08/13/17 23:48 Last Admin: 02/13/17 12:52 Dose: 1 mg Lactated Ringer's (Lactated Ringers) 1,000 mls @ 125 mls/hr IVC .Q8H [facility] Stop: 08/13/17 23:46 Last Admin: 02/13/17 08:18 Dose: 125 mls/hr Dextrose (Dextrose 5%) 1,000 mls @ 100 mls/hr IVC .Q10H PRN PRN Reason: HYPOGLYCEMIA Stop: 08/13/17 23:52 Insulin Human Lispro (Humalog) 0 units SQ Q6HR [facility] PRN Reason: Protocol Stop: 08/14/17 00:01 Last Admin: 02/13/17 11:27 Dose: Not Given Loratadine (Claritin) 10 mg PO DAILY [facility] PRN Reason: Protocol Stop: 08/14/17 09:01 Last Admin: 02/13/17 08:18 Dose: 10 mg Metoclopramide HCl (Reglan) 10 mg IVP Q6HR PRN PRN Reason: Nausea And Vomiting Stop: 08/14/17 03:10 Last Admin: 02/13/17 04:24 Dose: 10 mg Naloxone HCl (Narcan) 0.4 mg IVP Q2MIN PRN PRN Reason: Opioid Reversal Stop: 08/13/17 23:45 Nicotine (Nicoderm) 7 mg TD DAILY [facility] PRN Reason: Protocol Stop: 08/14/17 11:46 Last Admin: 02/13/17 08:18 Dose: 7 mg Nitroglycerin (Nitroglycerin) 0.4 mg SL Q5MIN PRN PRN Reason: Chest Pain Stop: 08/13/17 17:33 Last Admin: 02/11/17 18:21 Dose: 0.4 mg Omeprazole (Prilosec) 20 mg PO BIDAC [facility] PRN Reason: Protocol Stop: 08/15/17 07:31 Last Admin: 02/13/17 08:17 Dose: 20 mg Ondansetron HCl (Zofran) 4 mg IVP Q6HR PRN PRN Reason: Nausea And Vomiting Stop: 08/13/17 23:45 Last Admin: 02/13/17 08:17 Dose: 4 mg Prazosin HCl (Minipress) 1 mg PO [facility] Stop: 08/13/17 23:46 Last Admin: 02/12/17 20:35 Dose: 1 mg Quetiapine Fumarate (Seroquel) 100 mg PO [facility] Stop: 08/13/17 23:46 Last Admin: 02/12/17 20:35 Dose: Not Given Simvastatin (Zocor) 20 mg PO [facility] Stop: 08/14/17 21:01 Last Admin: 02/12/17 20:35 Dose: 20 mg Sucralfate (Carafate) 1 gm PO QIDAC [facility] Stop: 08/14/17 11:46 Last Admin: 02/13/17 11:32 Dose: 1 gm Laboratory Tests 02/11/17 02/11/17 02/12/17 16:02 19:13 03:55 Hgb Potassium Creatinine Troponin I 0.00 0.00 Triglycerides 170 H Cholesterol 209 H LDL Cholesterol, Calc 155 H HDL Cholesterol 20 L 02/12/17 02/13/17 02/13/17 03:55 04:23 04:23 Hgb 8.9 L Potassium 3.7 Creatinine 0.78 Troponin I 0.01 Triglycerides Cholesterol LDL Cholesterol, Calc HDL Cholesterol - Imaging and Cardiology Chest Xray: report reviewed Stress Test: report reviewed - EKG Interpretation EKG results cardiology: personally reviewed (ECG with sinus rhythm, HR 94.), other (Telemetry reviewed with average HR 63, sinus rhythm,) Consult Discharge Plan - Plan Referrals: NO,PCP [Primary Care Provider] -
--- NOTE | 2017-02-13 17:07 | Internal Med Progress Note ---
Date of Encounter: 02/13/17 Time of Encounter: 09:45 - Assessment and plan (1) Chest pain Current Visit: Yes Status: Acute Assessment and plan: Patient is chest and abdominal pain-free. Nausea and vomiting have resolved as well. Troponins were negative 2. Chest x-ray was negative. EKG was sinus rhythm rate 94, purulent over 146, QRS duration 92, QTC 423. Stress test showed mildly dilated LV with gated LVEF is 62%. There is a small sized, mild to moderate intensity, reversible perfusion defect involving the basal to midanterior wall. Findings are consistent with small area of mild to moderate reversible ischemia. Patient has been seen by cardiology. Patient is going to be seen by urology and surgery tomorrow in preparation for LHC on Wednesday. Patient is nothing by mouth after midnight in preparation for EGD tomorrow. Iron, folate, B12 labs in the morning chronic anemia workup prior to LHC. Continue telemetry Continue to monitor labs. Chest X-Ray 02/11/17 15:30 IMPRESSION: No acute cardiopulmonary abnormality D/ / Jun Montes / Jun Montes Interpreting Provider: Jun Montes Qualifiers: Chest pain type: other chest pain Qualified Code(s): R07.89 - Other chest pain; R07.8 - Other chest pain (2) Abdominal pain Current Visit: Yes Status: Resolved Assessment and plan: Patient denies abdominal pain today. Nausea and vomiting have resolved, as well. Qualifiers: Abdominal location: upper abdomen, unspecified Qualified Code(s): R10.10 - Upper abdominal pain, unspecified (3) Intractable nausea and vomiting Current Visit: Yes Status: Resolved Assessment and plan: Resolved. Qualifiers: Vomiting type: unspecified Qualified Code(s): R11.2 - Nausea with vomiting , unspecified (4) Diabetes Current Visit: Yes Status: Chronic Assessment and plan: A1c is 5.6. Patient states that she is not on any medications anymore. Continue Accu-Cheks. Qualifiers: Diabetes mellitus type: type 2 Diabetes mellitus complication status: with neurologic complications Diabetes mellitus complication detail: with polyneuropathy Diabetes mellitus chcf insulin use: without chcf use Qualified Code(s): E11.42 - Type 2 diabetes mellitus with diabetic polyneuropathy (5) GERD (gastroesophageal reflux disease) Current Visit: Yes Status: Chronic Assessment and plan: I have started omeprazole 20 mg by mouth twice a day as well as Carafate. Patient denies abd/epigastric pain and area is no longer tender to palpation. She is able to eat and drink without pain or n/v. Continue Carafate and omeprazole 20 mg by mouth twice a day Qualifiers: Esophagitis presence: without esophagitis Qualified Code(s): K21.9 - Gastro -esophageal reflux disease without esophagitis (6) DVT prophylaxis Current Visit: Yes Status: Acute Assessment and plan: Subcutaneous heparin. (7) Hyperlipidemia Current Visit: Yes Status: Chronic Assessment and plan: Lipid panel is elevated. Patient currently takes Lipitor 10 mg daily. She said she is not interested in increasing the dose. Qualifiers: Hyperlipidemia type: unspecified Qualified Code(s): E78.5 - Hyperlipidemia , unspecified - Time Spent With Patient less than 15 minutes - Subjective Interval history: Patient was seen and assessed at 9:45 AM. She sitting up in her bed playing on her tablet. She is alert and oriented and looks as if she feels significantly better today. She says she does feel better and her nausea and vomiting has resolved. She also states that her abdomen is no longer tender and painful. We will continue the Carafate and PPI. Patient had stress test resulted today, results are abnormal. Patient has been seen by cardiology. She has been up ambulating around the department a lot asking for food and asking to leave the unit to smoke. She has nicotine patches. Patient has multiple incidental findings on her abdominal CT, and in preparation for [facility] on Wednesday, urology will see her tomorrow for recommendations of further imaging. Patient is chronically anemic. She said his iron deficiency anemia and she is not compliant with taking her medications, hemoglobin is 8.9 today. She is asymptomatic. His prior history of colon polyps and questionable polyp or mass biopsied through EGD. Again, in preparation for [facility] on Wednesday, Dr. Holland will see her tomorrow for EGD. Patient is nothing by mouth after midnight. - Constitutional Vitals: Temp Pulse Resp BP Pulse Ox 98.0 F 62 16 127/79 96 02/13/17 15:02 02/13/17 15:02 02/13/17 15:02 02/13/17 15:02 02/13/17 15:02 General appearance: Present: A&O X 3, pleasant, no acute distress, answers questions appropriately - Head Head exam: Present: normal inspection - Eye Eye exam: Present: normal appearance, conjuntiva pink - ENT ENT exam: Present: mucous membranes moist, normal exam - Neck Neck exam general surgery: Present: normal inspection. Absent: lymphadenopathy , tenderness - Respiratory Respiratory exam: Present: CTAB. Absent: rales, respiratory distress, rhonchi, stridor, wheezes - Cardiovascular Cardiovascular exam: Present: RRR, +S1, +S2. Absent: diastolic murmur, systolic murmur - GI/Abdominal GI/Abdominal exam: Present: distended, soft. Absent: hepatomegaly, tenderness - Extremities Exam Extremities exam: Present: normal inspection, warm, radial pulses palpable and symetrical. Absent: tenderness - Neurological Exam Neurological exam: Present: alert, oriented X3. Absent: facial droop, speech deficit Internal Medicine: Result - Labs CBC & Chem 7: 02/13/17 04:23 02/13/17 04:23 Labs: Short CBC 02/13/17 Range/Units 04:23 WBC 6.8 (4.3-11.1) K/mcL Hgb 8.9 L (11.5-15.4) g/dL Hct 30.8 L (35.3-44.9) % Plt Count 263 (140-400) K/mcL Neutrophils # 4.2 (1.6-8.9) K/mcL BMP 02/13/17 04:23 Sodium 139 Potassium 3.7 Chloride 107 Carbon Dioxide 27 BUN 8 Creatinine 0.78 Glucose 104 H Calcium 9.2 Cardiac Enzymes 02/12/17 Range/Units 03:55 Troponin I 0.01 (0-0.03) ng/mL Liver Function 02/13/17 Range/Units 04:23 Total Bilirubin 0.4 (0.2-1.2) mg/dL Direct Bilirubin 0.1 (0.0-0.5) mg/dL AST 7 (5-34) Units/L ALT < 6 (0-55) Units/L Alkaline Phosphatase 83 (38-126) Units/L Albumin 3.0 L (3.5-5.0) g/dL - ABG Interpretation ABG results: PT/INR, D-dimer PT 14.0 Seconds (9.4-12.1) H 02/11/17 16:02 Consult Discharge Plan - Plan Referrals: NO,PCP [Primary Care Provider] -
[2017-02-13] MEDS: Aspirin Enteric Coated 81 MG Tablet PO SCH (17:30)
[2017-02-14] MEDS: Ringers Solution, Lactated 1,000 ML IVC SCH ×3 (01:51→11:40)
[2017-02-14] MEDS: *HR* HYDROmorphone (PF) 1 MG/ML SYRINGE IVP PRN ×5 (01:52→22:34)
[2017-02-14] MEDS: Ondansetron 4 MG/2 ML VIAL IVP PRN ×3 (02:15→18:11)
[2017-02-14 05:02] LABS: Hemoglobin 8.2 g/dL (11.5-15.4)
[2017-02-14 05:04] LABS: Basophils % 0.5 %; Eosinophils # 0.1 K/mcL (0.0-0.6); Eosinophils % 2.4 %; Immature Granulocytes % 0.4 % (0-4); Lymphocytes # 1.8 K/mcL (0.6-4.6); Lymphocytes % 32.4 %; Mean Corpuscular HGB Conc 29.3 g/dL (31.6-35.5); Mean Corpuscular Hemoglobin 22.8 pg (28.0-33.3); Mean Corpuscular Volume 77.8 fL (83.0-100.0); Mean Platelet Volume 10.7 fL (9.4-12.4); Monocytes # 0.5 K/mcL (0.0-1.3); Monocytes % 9.9 %; Platelet Count 243 K/mcL (140-400); Red Cell Distribution Width 16.6 % (11.5-14.5); Segmented Neutrophils % 54.4 %
[2017-02-14 05:32] LABS: % Iron Saturation 3 % (15-50); BUN/Creatinine Ratio 11 (6-26); Blood Urea Nitrogen 8 mg/dL (7-20); Calcium 9.1 mg/dL (8.6-10.8); Carbon Dioxide 25 mEq/L (19-29); Chloride 107 mEq/L (98-109); Glucose 79 mg/dL (70-99); Iron 12 mcg/dL (50-170); Osmolality,Calculated 285 (280-300); Potassium 3.8 mEq/L (3.5-4.5); Sodium 139 mEq/L (136-145); Transferrin 274 mg/dL (180-382); eGFR For African Americans > 60 (> 60); eGFR For Non-African Americans > 60 (> 60)
[2017-02-14 05:39] LABS: Anisocytosis 1+ (Not Present); Hypochromasia Present (Not Present); Microcytosis Present (Not Present); Platelet Estimate Normal (Normal)
[2017-02-14] MEDS: *HR* Heparin 5,000 UNIT/ML VIAL SQ SCH ×3 (05:58→21:40)
[2017-02-14] MEDS: Metoclopramide 10 MG/2 ML VIAL IVP PRN (05:58)
[2017-02-14 06:01] LABS: Folate 11.7 ng/mL (7.0-31.4)
[2017-02-14] MEDS: Insulin LISPRO 300 UNITS/3 ML VIAL SQ SCH ×4 (06:03→18:05)
[2017-02-14] MEDS: Sucralfate 1 GM TABLET PO SCH ×5 (08:22→21:41)
[2017-02-14] MEDS: Nicotine 7 MG PATCH.TD24 TD SCH (08:23)
[2017-02-14] MEDS ORDERED: *HR* Midazolam HCl 5 MG/5 ML VIAL IVP ONE (08:28)
[2017-02-14] MEDS ORDERED: *HR* FentaNYL (PF) 100 MCG/2 ML VIAL ONE (08:29)
--- NOTE | 2017-02-14 08:47 | General Surgery Consult Note ---
Date of Encounter: 02/14/17 Time of Encounter: 08:10 History of Present Illness Consult date: 02/14/17 Reason for consult: other (anemia) Requesting physician: Katie Payne History of present illness: 41-year-old female admitted 02/11/17 after presenting to [facility] emergency department with chest pain. The patient describes intermittent chest pain and pressure over the past several weeks however the intermittent symptoms actually date back several years. The patient was also complaining of epigastric abdominal pain, with nausea and vomiting. Since admission, cardiac evaluation has been negative; and nausea and vomiting has resolved. The patient is still complaining of epigastric abdominal pain. On presentation to the emergency department patient's hemoglobin was 10.5 hematocrit was 36.0. Over the past several days her H&H has fallen to 8.2 and 28.0. This has prompted a Surgical/Gastroenterology consultation. The patient describes knowledge of a prior iron deficiency anemia but denies any previous endoscopic evaluation. She describes being given iron to correct her anemia. 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 Medical record also indicates that she has asthma, history of non-Hodgkin's lymphoma as a child, gastroesophageal reflux disease, anxiety, and depression. Surgical history: Gastric bypass 2009 - patient describes 200 pound weight loss which she has maintained; amputation of toes right foot Allergies no known drug allergies Medications on admission Aripiprazole 10 mg by mouth daily Albuterol HFA 2 puffs every 4-6 hours as needed for wheezing or shortness of breath Atorvastatin 10 mg by mouth daily at bedtime Docusate 100 mg by mouth twice a day as needed for constipation Gabapentin 600 mg by mouth 4 times a day Loratadine 10 mg by mouth daily Oxycodone 10 mg by mouth 4 times a day Prazosin 1 mg by mouth daily at bedtime Quetiapine 100 mg by mouth daily at bedtime Ranitidine 250 mg by mouth twice a day Clonidine 0.1 mg by mouth daily at bedtime Social history: Patient is never been ; he admits to smoking 2 packs daily for over 30 years; she denies alcohol and illicit drug use Physical examination: Obese, appropriate woman who appears to be in no acute distress. She is seated comfortably in her hospital bed. The patient has been afebrile, currently 98.1, pulse 69, respirations 15, blood pressure 117/73. SPO2 on room air 94-96% Skin: Warm, no obvious jaundice Lungs: Diffuse end expiratory wheezes in both bases Cardiac: Regular rate but audible 3/6 systolic murmur abdomen: Obese, epigastric tenderness with minimal bilateral lower quadrant tenderness. No discernible masses or rebound. Active bowel sounds. Extremities: No obvious clubbing cyanosis or edema; the toes on the right foot are surgically absent. CT abd/pelvis - emphysematous and bolus changes bilateral bases; possible wall thickening at the small bowel anastomosis with a small amount of stranding in the fat adjacent to the gastric anastomosis is described, however, this may be a result of the gastric bypass. Numerous retroperitoneal and mesenteric lymph nodes are noted. (This may be due to history of non-Hodgkin's lymphoma as a child); heterogeneity of the uterus is noted, thought likely to be due to fibroids; degenerative changes in the spine and SI joints. Ultrasound of the gallbladder: Multiple gallbladder with no evidence of pericholecystic fluid, wall thickening, or stones. Common bile duct measured at 7 mm. Labs: White count 5.5, hemoglobin 8.2, hematocrit 28.0 proximal on admission hemoglobin 10.5, hematocrit 36.0 - diminished H&H appears to be related to IV fluids administered during the course of this hospitalization. Electrolytes, BUN, creatinine within normal limits. Iron markedly depressed 12 with a saturation of 3%. Impression: 41-year-old female, referred to Surgery/Gastroenterology for further evaluation of iron deficiency anemia. EGD to be completed today. The procedure was discussed, risks including hemorrhage, aspiration, infection, cramping abdominal pain, bloating, and possible perforation. The patient expressed understanding and is willing to proceed. Consent has been obtained. Past Med Surg Social Fam HX - Past Medical History Medical history: asthma, diabetes, hyperlipidemia Psychiatric history: anxiety, depression - Social History Smoking Status: Current every day smoker Alcohol use: none Drug use: none - Family History Mother Living Status: Still Living Hx Family Cardiac Disorders: No Hx Family Respiratory Disorders: Yes (COPD) Medications and Allergies ARIPiprazole [Abilify] 10 mg PO DAILY 02/11/17 [History] Albuterol Sulfate [Ventolin Hfa] 2 puff IH Q4-6H PRN 02/11/17 [History] Atorvastatin [Lipitor] 10 mg PO HS 02/11/17 [History] Docusate [Colace] 100 mg PO BID PRN 02/11/17 [History] Gabapentin [Neurontin] 600 mg PO QID 02/11/17 [History] Loratadine [Claritin] 10 mg PO DAILY 02/11/17 [History] Oxycodone HCl 10 mg PO QID 02/11/17 [History] Prazosin [Minipress] 1 mg PO HS 02/11/17 [History] Quetiapine Fumarate [Seroquel Xr] 100 mg PO HS 02/11/17 [History] Ranitidine HCl [Zantac] 150 mg PO BID 02/11/17 [History] cloNIDine HCl [CloNIDine HCl] 0.1 mg PO HS 02/11/17 [History] Allergies No Known Allergies Allergy (Verified 02/11/17 15:29) Review of Systems All systems PM: A 10-system review of systems was performed and is negative for pertinent findings except as documented above in the HPI. General Surgery Exam Initial Vital Signs Temp Pulse Resp BP Pulse Ox 98.2 F 95 16 130/79 95 02/11/17 15:26 02/11/17 15:26 02/11/17 15:26 02/11/17 15:26 02/11/17 15:26 Exam Initial Vital Signs Temp Pulse Resp BP Pulse Ox 98.2 F 95 16 130/79 95 02/11/17 15:26 02/11/17 15:26 02/11/17 15:26 02/11/17 15:26 02/11/17 15:26 Results - Labs 02/14/17 04:35 02/14/17 04:35 Abnormal lab results RBC 3.60 M/mcL (3.82-4.97) L 02/14/17 04:35 Hgb 8.2 g/dL (11.5-15.4) L 02/14/17 04:35 Hct 28.0 % (35.3-44.9) L 02/14/17 04:35 MCV 77.8 fL (83.0-100.0) L 02/14/17 04:35 MCH 22.8 pg (28.0-33.3) L 02/14/17 04:35 MCHC 29.3 g/dL (31.6-35.5) L 02/14/17 04:35 RDW 16.6 % (11.5-14.5) H 02/14/17 04:35 Hypochromasia Present (Not Present) A 02/14/17 04:35 Anisocytosis 1+ (Not Present) A 02/14/17 04:35 Microcytosis Present (Not Present) A 02/14/17 04:35 PT 14.0 Seconds (9.4-12.1) H 02/11/17 16:02 POC Glucose 94 (58-89) H 02/14/17 05:58 Iron 12 mcg/dL (50-170) L 02/14/17 04:35 % Saturation 3 % (15-50) L 02/14/17 04:35 Albumin 3.0 g/dL (3.5-5.0) L 02/13/17 04:23 Globulin 3.8 g/dL (2.4-3.5) H 02/13/17 04:23 Albumin/Globulin Ratio 0.8 (1.1-2.2) L 02/13/17 04:23 Triglycerides 170 mg/dL (< 150) H 02/12/17 03:55 Cholesterol 209 mg/dL (< 200) H 02/12/17 03:55 LDL Cholesterol, Calc 155 mg/dL (0-99) H 02/12/17 03:55 VLDL Cholesterol, Calc 34 mg/dL (< 31) H 02/12/17 03:55 HDL Cholesterol 20 mg/dL (40-59) L 02/12/17 03:55 Cholesterol/HDL Ratio 10.5 (0-4.9) H 02/12/17 03:55 Diabetes panel 02/14/17 Range/Units 04:35 Sodium 139 (136-145) mEq/L Potassium 3.8 (3.5-4.5) mEq/L Chloride 107 (98-109) mEq/L Carbon Dioxide 25 (19-29) mEq/L BUN 8 (7-20) mg/dL Creatinine 0.75 (0.57-1.11) mg/dL Glucose 79 (70-99) mg/dL Calcium 9.1 (8.6-10.8) mg/dL Calcium panel 02/14/17 Range/Units 04:35 Calcium 9.1 (8.6-10.8) mg/dL Pituitary panel 02/14/17 Range/Units 04:35 Sodium 139 (136-145) mEq/L Potassium 3.8 (3.5-4.5) mEq/L Chloride 107 (98-109) mEq/L Carbon Dioxide 25 (19-29) mEq/L BUN 8 (7-20) mg/dL Creatinine 0.75 (0.57-1.11) mg/dL Glucose 79 (70-99) mg/dL Calcium 9.1 (8.6-10.8) mg/dL Adrenal panel 02/14/17 Range/Units 04:35 Sodium 139 (136-145) mEq/L Potassium 3.8 (3.5-4.5) mEq/L Chloride 107 (98-109) mEq/L Carbon Dioxide 25 (19-29) mEq/L BUN 8 (7-20) mg/dL Creatinine 0.75 (0.57-1.11) mg/dL Glucose 79 (70-99) mg/dL Calcium 9.1 (8.6-10.8) mg/dL All other labs normal. Consult Discharge Plan - Plan Referrals: NO,PCP [Primary Care Provider] -
[2017-02-14] MEDS ORDERED: *HR* Midazolam HCl 5 MG/5 ML VIAL IVP PRN (08:52)
[2017-02-14] MEDS ORDERED: *HR* FentaNYL (PF) 100 MCG/2 ML VIAL IVP PRN (08:52)
[2017-02-14] MEDS ORDERED: Tetracaine/Benzocaine/Butamben 200MG/SPRAY (100SPY/BOT) MM ONE (08:52)
[2017-02-14] MEDS ORDERED: Simethicone 40 MG/0.6 ML MLS IR ONE (08:52)
--- NOTE | 2017-02-14 09:02 | Pre-Sedation Evaluation ---
Pre-sedation evaluation - Pre-sedation checklist Date of procedure: 02/14/17 Procedure: EGD Recent Vitals: Last Vital Signs Temp 98.1 F 02/14/17 07:57 Pulse 73 02/14/17 08:50 Resp 18 02/14/17 08:50 BP 130/74 02/14/17 08:43 Pulse Ox 92 02/14/17 08:50 Previous reaction to sedatives/anesthetics: No Dietary Status: NPO after Midnight Airway Assessment: Patient can open mouth completely, TMJ function normal, Micrognathia (under-bite, receding chin) absent, Neck with adequate range of motion Dentition: No loose teeth or bridges Possible difficult airway: No If Yes;: Morbid obesity ASA Classification *see protocol: CLASS III-Severe systemic disease Plan of Care: Pt appropriate candidate for procedure/moderate/conscious sedation , Risks/benefits of procedure/sedation discussed w/ patient/family, If not NPO; Risk of intake outweiged by necessity to perform procedure
--- NOTE | 2017-02-14 09:08 | Event Note ---
Date of Encounter: 02/14/17 Time of Encounter: 09:07 Patient not in room this morning. CT scan reviewed which revealed very small possible left renal nonspecific lesion. At this point patient can follow-up with urology as outpatient for discussion of further imaging evaluation which would likely include a MRI abdomen. No urgent need for this to be done as inpatient.
[2017-02-14] MEDS ORDERED: 0.9 % Sodium Chloride 500 ML IVC SCH (09:15)
[2017-02-14] MEDS: Aspirin Enteric Coated 81 MG Tablet PO SCH (11:02)
[2017-02-14] MEDS: Gabapentin 300 MG CAPSULE PO SCH ×4 (11:03→20:18)
--- NOTE | 2017-02-14 11:37 | Internal Med Progress Note ---
Date of Encounter: 02/14/17 Time of Encounter: 11:10 - Assessment and plan (1) Chest pain Current Visit: Yes Status: Acute Assessment and plan: Patient is chest and abdominal pain-free. Nausea and vomiting have resolved as well. Troponins were negative 2. Chest x-ray was negative. EKG was sinus rhythm rate 94, purulent over 146, QRS duration 92, QTC 423. Stress test showed mildly dilated LV with gated LVEF is 62%. There is a small sized, mild to moderate intensity, reversible perfusion defect involving the basal to midanterior wall. Findings are consistent with small area of mild to moderate reversible ischemia. Patient has been seen by cardiology and most likely they will defer LHC at this time due to risk of bleeding from newly diagnosed ulcers. Continue telemetry Continue to monitor labs. Chest X-Ray 02/11/17 15:30 IMPRESSION: No acute cardiopulmonary abnormality D/ / Jun Montes / Jun Montes Interpreting Provider: Jun Montes Qualifiers: Chest pain type: other chest pain Qualified Code(s): R07.89 - Other chest pain; R07.8 - Other chest pain (2) Abdominal pain Current Visit: Yes Status: Resolved Assessment and plan: Patient denies abdominal pain today. Nausea and vomiting have resolved, as well. Pt had EGD done by Dr. Holland today. Visualized two non-obstructing, non- bleeding cratered gastric ulcers of moderate to significant severity with no stigmata of bleeding were found at surgical anastamosis. Largest was 10mm. No evidence of perforation. She has been placed on IV Protonix and is to avoid ASA , NSAIDs. Discussed outpatient follow up with PCP after discharge for continued evaluation and medication refills. Qualifiers: Abdominal location: upper abdomen, unspecified Qualified Code(s): R10.10 - Upper abdominal pain, unspecified (3) Intractable nausea and vomiting Current Visit: Yes Status: Resolved Assessment and plan: Resolved. Qualifiers: Vomiting type: unspecified Qualified Code(s): R11.2 - Nausea with vomiting , unspecified (4) Diabetes Current Visit: Yes Status: Chronic Assessment and plan: A1c is 5.6. Patient states that she is not on any medications anymore. Continue Accu-Cheks. Qualifiers: Diabetes mellitus type: type 2 Diabetes mellitus complication status: with neurologic complications Diabetes mellitus complication detail: with polyneuropathy Diabetes mellitus moth exterminator insulin use: without residential use Qualified Code(s): E11.42 - Type 2 diabetes mellitus with diabetic polyneuropathy (5) GERD (gastroesophageal reflux disease) Current Visit: Yes Status: Chronic Assessment and plan: Plan as above. Continue IV Protonix, Clear liquid diet and advance as tolerated, pain control. Qualifiers: Esophagitis presence: without esophagitis Qualified Code(s): K21.9 - Gastro -esophageal reflux disease without esophagitis (6) DVT prophylaxis Current Visit: Yes Status: Acute Assessment and plan: Subcutaneous heparin, pt is ambulatory. (7) Hyperlipidemia Current Visit: Yes Status: Chronic Assessment and plan: Lipid panel is elevated. Patient currently takes Lipitor 10 mg daily. She said she is not interested in increasing the dose. Qualifiers: Hyperlipidemia type: unspecified Qualified Code(s): E78.5 - Hyperlipidemia , unspecified - Time Spent With Patient less than 15 minutes - Subjective Interval history: Pt was seen and assessed at 1110. Echo being done and cardiology MACHINE TOOL OPERATOR in the room discussing plan of care with pt. Pt is leaving [place] on to go to [place] for the next 4 months, then will go back to [place], where she normally lives. I discussed with her at length that she will need to see a tenoner operator for follow up care regarding abnormal stress test and that she will need to follow up for her GI issues and ulcers. She states that her pain is better, however, she seems concerned about weaning from IV pain medication back to her home dose of Percocet that was not verified on the med rec. We will start a clear liquid diet, pt states that she has pain with all po intake, will reassess for advancing diet. - Constitutional Vitals: Temp Pulse Resp BP Pulse Ox 98.1 F 66 18 154/90 99 02/14/17 07:57 02/14/17 09:12 02/14/17 09:12 02/14/17 09:12 02/14/17 09:12 General appearance: Present: A&O X 3, pleasant, no acute distress, answers questions appropriately - Head Head exam: Present: normal inspection - Eye Eye exam: Present: normal appearance, conjuntiva pink - ENT ENT exam: Present: mucous membranes moist, normal external ear exam - Neck Neck exam general surgery: Present: normal inspection. Absent: lymphadenopathy , tenderness - Respiratory Respiratory exam: Present: CTAB. Absent: chest wall tenderness, decreased breath sounds, rales, respiratory distress, rhonchi, wheezes - Expanded Cardiovascular Exam Location: Present: LUSB Intensity: 3/6 Peripheral pulses: 1+: Dorsalis Pedis (L) PM, Dorsalis Pedis (R) PM - GI/Abdominal GI/Abdominal exam: Present: distended, normal bowel sounds, soft, tenderness - Extremities Exam Extremities exam: Present: warm, radial pulses palpable and symetrical. Absent : joint swelling, pedal edema, tenderness - Neurological Exam Neurological exam: Present: alert, oriented X3, no focal deficits, strengths equal and symetr throughout. Absent: facial droop, speech deficit - Skin Skin exam: Present: dry, intact, normal color, warm. Absent: rash Internal Medicine: Result - Labs CBC & Chem 7: 02/14/17 04:35 02/14/17 04:35 Labs: Short CBC 02/14/17 Range/Units 04:35 WBC 5.5 (4.3-11.1) K/mcL Hgb 8.2 L (11.5-15.4) g/dL Hct 28.0 L (35.3-44.9) % Plt Count 243 (140-400) K/mcL Neutrophils # 3.0 (1.6-8.9) K/mcL BMP 02/14/17 04:35 Sodium 139 Potassium 3.8 Chloride 107 Carbon Dioxide 25 BUN 8 Creatinine 0.75 Glucose 79 Calcium 9.1 - ABG Interpretation ABG results: PT/INR, D-dimer PT 14.0 Seconds (9.4-12.1) H 02/11/17 16:02 Consult Discharge Plan - Plan Referrals: NO,PCP [Primary Care Provider] -
[2017-02-14] MEDS: ARIPiprazole 10 MG TABLET PO SCH (11:39)
[2017-02-14] MEDS: Loratadine 10 MG TABLET PO SCH (11:40)
[2017-02-14] MEDS: Pantoprazole 40 MG in 0.9 % Sodium Chloride Mini Bag 100 ML IVC SCH ×3 (11:41→21:54)
--- NOTE | 2017-02-14 12:52 | Cardiology Progress Note ---
Date of Encounter: 02/14/17 Time of Encounter: 11:00 Assessment and Plan (1) Chest pain Current Visit: Yes Status: Acute Per cardiology: -Chest pain/pressure that started at rest. -Patient denies aggravating factors. -Pain relieved with rest and with patient holding chest. -ECG with no ishemic changes. -Troponins negative x3. -Nuclear stress 02/12/17 with gated LVEF 62%, small sized mild-moderate intensity , reversible perfusion defect involving basal-mid anterior wall. Findings consistent with small area of mild-moderate reversible ischemia. Of note, this study was completed 02/12/17 however, was not assigned to reading acoustical logging engineer until today, 02/13/17. This was due to an oversight by nuclear medicine department. -Patient denies current chest pain. -Has risk factors for CAD; HTN, hyperlipidemia, smoking. -Average HR previous 12 hours noted to be 63. -Recommend LHC, however unable to perform due to anemia, ulcers, and recommendations from surgery for no anticoagulation, no asa. -Cardiology will sign off. NO follow up set with [facility], patient states she is leaving the end of this week to go to [place] and will not be returning to [place]. -I discussed at length with patient regarding need for close outpatient follow up with cardiology. Patient states she will be staying with her daughter for a while before returning to her home in [place]. Patient educated to obtain cardiololgist in [place]. Patient educated on risk of [place], or . Patient states understanding and states she will obtain acoustical logging engineer. -Unable to add beta reuben due to bradycardia. -ON statin. No asa per surgeons recommendations for gastric ulcers. Qualifiers: Chest pain type: other chest pain Qualified Code(s): R07.89 - Other chest pain; R07.8 - Other chest pain (2) HTN (hypertension) Current Visit: Yes Status: Chronic Per cardiology: -Known history of HTN. -On minipress 1mg daily. -BPs 120-130s systolic -Can consider addition of laura inhibtior. Qualifiers: Hypertension type: essential hypertension Qualified Code(s): I10 - Essential (primary) hypertension (3) Anemia Current Visit: Yes Status: Acute Per cardiology: -Hemoglobin on admission 10.5. -Now 8.2. -Also reports abdominal pain. -Unknown baseline hemoglobin prior to admission. -Gastric ulcers noted per upper endoscopy. Qualifiers: Anemia type: unspecified type Qualified Code(s): D64.9 - Anemia, unspecified (4) Hyperlipidemia Current Visit: Yes Status: Chronic Per cardiology: -KNown hyperlipidemia -On statin. -Triglycerdies 170, Choelserol 209, LDL 155, HDL 20. Qualifiers: Hyperlipidemia type: unspecified Qualified Code(s): E78.5 - Hyperlipidemia , unspecified (5) Tobacco abuse Current Visit: Yes Status: Chronic Per cardiology: -KNown tobacco abuse. -SMokes 1-1.5 ppd for 33 years -I spent 3 minutes reviewing smoking cessation education with patient. (6) Aortic regurgitation Current Visit: Yes Status: Acute Per caridology: -Echo 02/14/17 with LVEF 55-60%, aortic valve appears to be bicuspid with fusion of the left and non-coronary cusps, aortic valve moderately calcified, mild , moderate AR, midl MR, mild TR, mild pulmonary hypertension, all thomas with normal motion. MARIA GUADALUPE was recommended. -Unable to perform MARIA GUADALUPE at this time due to gastric ulcers -REcommend patient establish with acoustical logging engineer for consideration of MARIA GUADALUPE. Qualifiers: Cardiac valve disease etiology: etiology unspecified Qualified Code(s): I35.1 - Nonrheumatic aortic (valve) insufficiency Discussion w patient/family: The assessment and plan as outlined above was discussed with the patient who expressed understanding and agreement. All questions were answered. Thank you for involving us in the care of your patient. Please call with any questions. Discussed and reviewed with . Subjective Principal diagnosis: abdominal pain Interval history: Patient underwent stress test yesterday which showed abnormality, however anemia was noted. Patient was evaluated by surgery for anemia. Upper endoscopy was performed today with ulcers noted. Per surgeons recommendations, patient is to have no anticoagulation/ antiplatelets. Patient denies current chest pain. Objective Vital Signs, Last 4 Hours Temp Pulse Resp BP Pulse Ox 02/14/17 11:52 97.6 F 65 16 121/80 97 02/14/17 09:12 66 18 154/90 99 02/14/17 09:07 82 18 138/82 98 02/14/17 09:02 72 18 129/76 93 General: Conversant, No Apparent Distress HEENT: Atraumatic, Normocephaly, Mucus Membranes Moist Neck: No JVD, Normal carotid pulses Cardiac: Reg Rate and Rhythm, Normal S1 and S2, No Murmur Lungs: Normal Breath Sounds, No Wheeze, Rales, Rhonchi Neuro: Alert and responsive, No focal deficits noted Abdomen: Soft, Non-Tender Skin: No rashes noted on visualized skin Musculoskeletal: No Chest Wall Tenderness Extremities: No Clubbing, No Cyanosis, No Edema, Normal Pulses Results 02/14/17 04:35 02/14/17 04:35 Lab Results Active Medications Albuterol Sulfate (Proventil Neb) 2.5 mg IH [id number] PRN; Protocol PRN Reason: Shortness Of Breath/Wheezing Stop: 08/13/17 23:52 Aripiprazole (Abilify) 10 mg PO DAILY [facility] Stop: 08/14/17 09:01 Last Admin: 02/14/17 11:39 Dose: 10 mg Atorvastatin Calcium (Lipitor) 40 mg PO HS [facility] Stop: 08/15/17 21:01 Last Admin: 02/13/17 20:59 Dose: 40 mg Dextrose/Water (Dextrose 50% (Syg)) 25 ml IVP AD PRN PRN Reason: Hypoglycemia Stop: 08/13/17 23:52 Docusate Sodium (Colace) 100 mg PO BID [facility] PRN Reason: Protocol Stop: 08/16/17 09:01 Last Admin: 02/14/17 11:40 Dose: 100 mg Ferrous Sulfate (Ferrous Sulfate) 325 mg PO BIDWM [facility] Stop: 08/16/17 08:01 Last Admin: 02/14/17 11:39 Dose: 325 mg Gabapentin (Neurontin) 600 mg PO QID [facility] Stop: 08/14/17 09:01 Last Admin: 02/14/17 11:39 Dose: 600 mg Glucagon (Glucagen) 1 mg IM ONCE PRN PRN Reason: Hypoglycemia Stop: 08/13/17 23:52 Glucose (Gluctose) 15 gm PO ONCE PRN PRN Reason: Hypoglycemia Stop: 08/13/17 23:52 Glucose (Gluctose) 30 gm PO ONCE PRN PRN Reason: Hypoglycemia Stop: 08/13/17 23:52 Heparin Sodium (Porcine) (Heparin) 5,000 unit SQ Q8HCO [facility] Stop: 08/14/17 07:01 Last Admin: 02/14/17 05:58 Dose: 5,000 unit Hydromorphone HCl (Dilaudid) 1 mg IVP Q4HR PRN PRN Reason: Pain>4 Stop: 08/13/17 23:48 Last Admin: 02/14/17 11:55 Dose: 1 mg Dextrose (Dextrose 5%) 1,000 mls @ 100 mls/hr IVC .Q10H PRN PRN Reason: HYPOGLYCEMIA Stop: 08/13/17 23:52 Lactated Ringer's (Lactated Ringers) 1,000 mls @ 50 mls/hr IVC .Q20H [facility] Stop: 08/16/17 09:31 Last Admin: 02/14/17 11:40 Dose: 50 mls/hr Pantoprazole Sodium 40 mg/ (Sodium Chloride) 100 mls @ 20 mls/hr IVC .Q5H [facility] Stop: 08/16/17 09:31 Last Admin: 02/14/17 11:41 Dose: 20 mls/hr Insulin Human Lispro (Humalog) 0 units SQ Q6HR [facility] PRN Reason: Protocol Stop: 08/14/17 00:01 Last Admin: 02/14/17 12:14 Dose: Not Given Loratadine (Claritin) 10 mg PO DAILY [facility] PRN Reason: Protocol Stop: 08/14/17 09:01 Last Admin: 02/14/17 11:40 Dose: 10 mg Naloxone HCl (Narcan) 0.4 mg IVP Q2MIN PRN PRN Reason: Opioid Reversal Stop: 08/13/17 23:45 Nicotine (Nicoderm) 7 mg TD DAILY [facility] PRN Reason: Protocol Stop: 08/14/17 11:46 Last Admin: 02/14/17 08:23 Dose: 7 mg Nitroglycerin (Nitroglycerin) 0.4 mg SL Q5MIN PRN PRN Reason: Chest Pain Stop: 08/13/17 17:33 Last Admin: 02/11/17 18:21 Dose: 0.4 mg Ondansetron HCl (Zofran) 4 mg IVP Q6HR PRN PRN Reason: Nausea And Vomiting Stop: 08/13/17 23:45 Last Admin: 02/14/17 11:55 Dose: 4 mg Prazosin HCl (Minipress) 1 mg PO HS [facility] Stop: 08/13/17 23:46 Last Admin: 02/13/17 20:59 Dose: 1 mg Quetiapine Fumarate (Seroquel) 100 mg PO HS [facility] Stop: 08/13/17 23:46 Last Admin: 02/13/17 20:59 Dose: 100 mg Sucralfate (Carafate) 1 gm PO QIDAC [facility] Stop: 08/14/17 11:46 Last Admin: 02/14/17 11:39 Dose: 1 gm Laboratory Tests 02/11/17 02/11/17 02/11/17 16:02 16:02 19:13 Hgb 10.5 L Creatinine Troponin I 0.00 0.00 02/12/17 02/14/17 02/14/17 03:55 04:35 04:35 Hgb 8.2 L Creatinine 0.75 Troponin I 0.01 - Imaging and Cardiology Chest Xray: report reviewed Stress Test: report reviewed Echo: report reviewed - EKG Interpretation EKG results cardiology: other (Telemtry reviewed with average HR 63, sinnus rhythm. PACs noted.) Consult Discharge Plan - Plan Referrals: NO,PCP [Primary Care Provider] -
[2017-02-14] MEDS ORDERED: *HR* HYDROmorphone 2 MG/ML SYRINGE IVP PRN (16:50)
[2017-02-14] MEDS: *HR* OxyCODONE Immed Rel 5 MG TABLET PO PRN (20:19)
[2017-02-14] MEDS ORDERED: Nicotine 14 MG PATCH.TD24 TD ONE (21:36)
[2017-02-15] MEDS: Insulin LISPRO 300 UNITS/3 ML VIAL SQ SCH ×2 (02:33→06:12)
[2017-02-15] MEDS: *HR* OxyCODONE Immed Rel 5 MG TABLET PO PRN ×2 (02:41→09:33)
[2017-02-15] MEDS: Pantoprazole 40 MG in 0.9 % Sodium Chloride Mini Bag 100 ML IVC SCH ×2 (02:41→08:32)
[2017-02-15] MEDS: Ondansetron 4 MG/2 ML VIAL IVP PRN ×2 (03:49→09:39)
[2017-02-15] MEDS: *HR* HYDROmorphone (PF) 1 MG/ML SYRINGE IVP PRN (04:42)
[2017-02-15 05:57] LABS: Basophils % 0.5 %; Eosinophils # 0.2 K/mcL (0.0-0.6); Eosinophils % 2.5 %; Hematocrit 29.3 % (35.3-44.9); Hemoglobin 8.5 g/dL (11.5-15.4); Immature Granulocytes % 0.3 % (0-4); Lymphocytes # 1.7 K/mcL (0.6-4.6); Lymphocytes % 26.5 %; Mean Corpuscular Hemoglobin 22.5 pg (28.0-33.3); Mean Corpuscular Volume 77.5 fL (83.0-100.0); Monocytes # 0.7 K/mcL (0.0-1.3); Neutrophils # 3.9 K/mcL (1.6-8.9); Platelet Count 274 K/mcL (140-400); Red Blood Count 3.78 M/mcL (3.82-4.97); Red Cell Distribution Width 16.5 % (11.5-14.5); Segmented Neutrophils % 60.2 %
[2017-02-15] MEDS: *HR* Heparin 5,000 UNIT/ML VIAL SQ SCH (06:12)
[2017-02-15 06:14] LABS: BUN/Creatinine Ratio 10 (6-26); Blood Urea Nitrogen 8 mg/dL (7-20); Calcium 9.3 mg/dL (8.6-10.8); Carbon Dioxide 28 mEq/L (19-29); Chloride 107 mEq/L (98-109); Glucose 107 mg/dL (70-99); Osmolality,Calculated 289 (280-300); Sodium 140 mEq/L (136-145); eGFR For African Americans > 60 (> 60); eGFR For Non-African Americans > 60 (> 60)
[2017-02-15] MEDS ORDERED: Ondansetron 4 MG/2 ML VIAL IVP ONE (08:29)
[2017-02-15] MEDS: Gabapentin 300 MG CAPSULE PO SCH (08:31)
[2017-02-15] MEDS: ARIPiprazole 10 MG TABLET PO SCH (08:31)
[2017-02-15] MEDS: Ringers Solution, Lactated 1,000 ML IVC SCH (08:32)
[2017-02-15] MEDS: Sucralfate 1 GM TABLET PO SCH (08:32)
[2017-02-15] MEDS: Loratadine 10 MG TABLET PO SCH (08:34)
[2017-02-15] MEDS ORDERED: Nicotine 14 MG PATCH.TD24 TD SCH (09:00)
--- NOTE | 2017-02-15 10:41 | Urology - Consult Note ---
Date of Encounter: 02/15/17 Time of Encounter: 10:40 - Assessment and Plan (1) Left renal mass Current Visit: Yes Status: Acute Assessment and plan: Patient will need follow-up MRI for evaluation of possible left renal mass. Would recommend to do this in 6 months to evaluate change in size. Patient states that she is moving out of the state here recently. Urology CN:HPI Consult date: 02/15/17 Reason for consult Urology: Other (left renal mass) Requesting physician: Katie Payne History of present illness: Martha is a 41-year-old female with a history of recent admission for cardiac reasons. She was found on CT abdomen and pelvis to have a possible left tiny renal mass. This medial posterior mass is very difficult to describe secondary to its small size. Patient denies any flank pain at this time. Past Med Surg Social Fam HX - Past Medical History Medical history: asthma, diabetes, hyperlipidemia Psychiatric history: anxiety, depression - Social History Smoking Status: Current every day smoker Alcohol use: none Drug use: none - Family History Mother Living Status: Still Living Hx Family Cardiac Disorders: No Hx Family Respiratory Disorders: Yes (COPD) Medications and Allergies ARIPiprazole [Abilify] 10 mg PO DAILY 02/11/17 [History] Albuterol Sulfate [Ventolin Hfa] 2 puff IH Q4-6H PRN 02/11/17 [History] Atorvastatin [Lipitor] 10 mg PO HS 02/11/17 [History] Docusate [Colace] 100 mg PO BID PRN 02/11/17 [History] Gabapentin [Neurontin] 600 mg PO QID 02/11/17 [History] Loratadine [Claritin] 10 mg PO DAILY 02/11/17 [History] Oxycodone HCl 10 mg PO QID 02/11/17 [History] Prazosin [Minipress] 1 mg PO HS 02/11/17 [History] Quetiapine Fumarate [Seroquel Xr] 100 mg PO HS 02/11/17 [History] Ranitidine HCl [Zantac] 150 mg PO BID 02/11/17 [History] cloNIDine HCl [CloNIDine HCl] 0.1 mg PO HS 02/11/17 [History] Allergies No Known Allergies Allergy (Verified 02/11/17 15:29) Review of Systems - Constitutional no chills - EENT Nose, mouth and throat: no dizziness - Cardiovascular chest pain - Respiratory no cough - Gastrointestinal no abdominal pain - Musculoskeletal no back pain - Integumentary no erythema - Neurological no confusion - Psychiatric no anxiety Exam Initial Vital Signs Temp Pulse Resp BP Pulse Ox 98.2 F 95 16 130/79 95 02/11/17 15:26 02/11/17 15:26 02/11/17 15:26 02/11/17 15:26 02/11/17 15:26 - General physical appearance Present: well developed - Eyes Present: PERRL - ENT Present: normal nares - Neck Present: no masses - Respiratory Present: normal respiratory effort - Cardiovascular Cardiovascular exam IM: RRR - Abdomen Abdomen: Present: soft - Integumentary Present: no rash - Neurologic Present: normal coordination - Musculoskeletal Present: normal gait Urology Results - Labs 02/15/17 05:30 02/15/17 05:30 Abnormal lab results RBC 3.78 M/mcL (3.82-4.97) L 02/15/17 05:30 Hgb 8.5 g/dL (11.5-15.4) L 02/15/17 05:30 Hct 29.3 % (35.3-44.9) L 02/15/17 05:30 MCV 77.5 fL (83.0-100.0) L 02/15/17 05:30 MCH 22.5 pg (28.0-33.3) L 02/15/17 05:30 MCHC 29.0 g/dL (31.6-35.5) L 02/15/17 05:30 RDW 16.5 % (11.5-14.5) H 02/15/17 05:30 Hypochromasia Present (Not Present) A 02/14/17 04:35 Anisocytosis 1+ (Not Present) A 02/14/17 04:35 Microcytosis Present (Not Present) A 02/14/17 04:35 PT 14.0 Seconds (9.4-12.1) H 02/11/17 16:02 Glucose 107 mg/dL (70-99) H 02/15/17 05:30 POC Glucose 169 (58-89) H 02/14/17 23:51 Iron 12 mcg/dL (50-170) L 02/14/17 04:35 % Saturation 3 % (15-50) L 02/14/17 04:35 Albumin 3.0 g/dL (3.5-5.0) L 02/13/17 04:23 Globulin 3.8 g/dL (2.4-3.5) H 02/13/17 04:23 Albumin/Globulin Ratio 0.8 (1.1-2.2) L 02/13/17 04:23 Triglycerides 170 mg/dL (< 150) H 02/12/17 03:55 Cholesterol 209 mg/dL (< 200) H 02/12/17 03:55 LDL Cholesterol, Calc 155 mg/dL (0-99) H 02/12/17 03:55 VLDL Cholesterol, Calc 34 mg/dL (< 31) H 02/12/17 03:55 HDL Cholesterol 20 mg/dL (40-59) L 02/12/17 03:55 Cholesterol/HDL Ratio 10.5 (0-4.9) H 02/12/17 03:55 Diabetes panel 02/15/17 Range/Units 05:30 Sodium 140 (136-145) mEq/L Potassium 4.0 (3.5-4.5) mEq/L Chloride 107 (98-109) mEq/L Carbon Dioxide 28 (19-29) mEq/L BUN 8 (7-20) mg/dL Creatinine 0.82 (0.57-1.11) mg/dL Glucose 107 H (70-99) mg/dL Calcium 9.3 (8.6-10.8) mg/dL Calcium panel 02/15/17 Range/Units 05:30 Calcium 9.3 (8.6-10.8) mg/dL Pituitary panel 02/15/17 Range/Units 05:30 Sodium 140 (136-145) mEq/L Potassium 4.0 (3.5-4.5) mEq/L Chloride 107 (98-109) mEq/L Carbon Dioxide 28 (19-29) mEq/L BUN 8 (7-20) mg/dL Creatinine 0.82 (0.57-1.11) mg/dL Glucose 107 H (70-99) mg/dL Calcium 9.3 (8.6-10.8) mg/dL Adrenal panel 02/15/17 Range/Units 05:30 Sodium 140 (136-145) mEq/L Potassium 4.0 (3.5-4.5) mEq/L Chloride 107 (98-109) mEq/L Carbon Dioxide 28 (19-29) mEq/L BUN 8 (7-20) mg/dL Creatinine 0.82 (0.57-1.11) mg/dL Glucose 107 H (70-99) mg/dL Calcium 9.3 (8.6-10.8) mg/dL All other labs normal. - Imaging CT scan - abdomen: image reviewed CT scan - pelvis: image reviewed Consult Discharge Plan - Plan Referrals: NO,PCP [Primary Care Provider] -
--- NOTE | 2017-02-15 11:17 | Discharge Summary ---
Date of Encounter: 02/15/17 Time of Encounter: 08:00 - Discharge Diagnosis (1) Chest pain Priority: Primary Status: Acute Comments: Patient is chest and abdominal pain-free. Nausea and vomiting have resolved as well. Troponins were negative 2. Chest x-ray was negative. EKG was sinus rhythm rate 94, purulent over 146, QRS duration 92, QTC 423. Stress test showed mildly dilated LV with gated LVEF is 62%. There is a small sized, mild to moderate intensity, reversible perfusion defect involving the basal to midanterior wall. Findings are consistent with small area of mild to moderate reversible ischemia. She also has a 3/6 murmur at S, states that she was unaware of murmur previously. Normal LV systolic function, LVEF 55-60%. Right ventricle was not well visualized. It appears grossly normal in size and function. Aortic valve is suboptimally visualized. It appears bicuspid with fusion of the left and non-coronary cusps. The valve is moderately calcified. Mild aortic stenosis. Moderate aortic regurgitation. Mild mitral regurgitation. Mild tricuspid regurgitation. Mild pulmonary hypertension. Estimated RVSP = 44 mmHg. Consider MARIA GUADALUPE for further evaluation of the aortic valve if clinically indicated. Cardiology defers MARIA GUADALUPE due to ulcers. Qualifiers: Chest pain type: other chest pain Qualified Code(s): R07.89 - Other chest pain; R07.8 - Other chest pain (2) Abdominal pain Priority: Secondary Status: Acute Comments: Patient denies abdominal pain today. Nausea and vomiting have resolved, as well. Pt had EGD done by Dr. Holland today. Visualized two non-obstructing, non- bleeding cratered gastric ulcers of moderate to significant severity with no stigmata of bleeding were found at surgical anastamosis. Largest was 10mm. No evidence of perforation. She has been placed on IV Protonix and is to avoid ASA , NSAIDs. Discussed outpatient follow up with PCP after discharge for continued evaluation and medication refills. Discharge with Protonix 40mg po daily Qualifiers: Abdominal location: upper abdomen, unspecified Qualified Code(s): R10.10 - Upper abdominal pain, unspecified (3) Intractable nausea and vomiting Priority: Secondary Status: Resolved Comments: Resolved Qualifiers: Vomiting type: unspecified Qualified Code(s): R11.2 - Nausea with vomiting , unspecified (4) Diabetes Priority: Secondary Status: Chronic Comments: A1c 5.6. Does not take medications anymore, stopped due to A1c. Pt states that she still does accuchecks every 3-4 days. Qualifiers: Diabetes mellitus type: type 2 Diabetes mellitus complication status: with neurologic complications Diabetes mellitus complication detail: with polyneuropathy Diabetes mellitus retirement insulin use: without vermin exterminator use Qualified Code(s): E11.42 - Type 2 diabetes mellitus with diabetic polyneuropathy (5) GERD (gastroesophageal reflux disease) Priority: Secondary Status: Chronic Comments: Pt will be discharged with Protonix po daily and I have stressed the importance of follow up with GI and finding a PCP for follow up care and medication refills. Qualifiers: Esophagitis presence: without esophagitis Qualified Code(s): K21.9 - Gastro -esophageal reflux disease without esophagitis (6) DVT prophylaxis Priority: Secondary Status: Acute Comments: Pt is ambulatory in the hallways. Subq heparin. (7) Hyperlipidemia Priority: Secondary Status: Chronic Comments: Lipids are elevated. Lipitor was increased to 40mg daily. Qualifiers: Hyperlipidemia type: unspecified Qualified Code(s): E78.5 - Hyperlipidemia , unspecified - Discharge Medications Prescriptions: Atorvastatin [Lipitor] 40 mg PO HS #30 tab Ferrous Sulfate 325 mg PO BIDWM #60 tab Nicotine Patch [Nicoderm] 14 mg TD DAILY #28 patch Pantoprazole Sodium [Protonix] 40 mg PO DAILY #30 granpkt. Home Medications: ARIPiprazole [Abilify] 10 mg PO DAILY 02/11/17 [History] Albuterol Sulfate [Ventolin Hfa] 2 puff IH Q4-6H PRN 02/11/17 [History] Atorvastatin [Lipitor] 10 mg PO HS 02/11/17 [History] Docusate [Colace] 100 mg PO BID PRN 02/11/17 [History] Gabapentin [Neurontin] 600 mg PO QID 02/11/17 [History] Loratadine [Claritin] 10 mg PO DAILY 02/11/17 [History] Oxycodone HCl 10 mg PO QID 02/11/17 [History] Prazosin [Minipress] 1 mg PO HS 02/11/17 [History] Quetiapine Fumarate [Seroquel Xr] 100 mg PO HS 02/11/17 [History] cloNIDine HCl [CloNIDine HCl] 0.1 mg PO HS 02/11/17 [History] Atorvastatin [Lipitor] 40 mg PO HS #30 tab 02/15/17 [Rx] Ferrous Sulfate 325 mg PO BIDWM #60 tab 02/15/17 [Rx] Nicotine Patch [Nicoderm] 14 mg TD DAILY #28 patch 02/15/17 [Rx] Pantoprazole Sodium [Protonix] 40 mg PO DAILY #30 granpkt. 02/15/17 [Rx] Allergies/Adverse Reactions: Allergies No Known Allergies Allergy (Verified 02/11/17 15:29) Procedures/tests Complete & Pending: Procedures Performed prior 72 hours Category Date Time Status US gall bladder [US] Routine Exams 02/12/17 13:30 Completed EV echocardiogram Routine Y 02/14/17 15:47 Completed Date of admission: 02/11/17 21:16 Primary care physician: PCP NO Consults: 02/13/17 12:16 Consult to Cardiology [CONS] Routine Comment: Consulting Provider: Cardiology Jasmin Reason for Consult: abnormal stress Time Notified: 12:16 Call Completed: Yes 02/13/17 16:17 Consult to Urology [CONS] Routine Consulting Provider: Urology Jasmin Reason for Consult: recommendation for imaging for clearance for [facility] Wednesday. Time Notified: 16:19 Call Completed: Yes 02/14/17 08:55 Consult to Surgery [CONS] Routine Consulting Provider: Surgery [facility] Reason for Consult: EGD for [facility] clearance. Time Notified: 08:50 Call Completed: Yes Discharging clinician: Katie Payne Anticipated date of discharge: 02/15/17 - Patient Status Disposition: Home, Self-Care Functional capacity at discharge: independent ambulation Overall status at discharge: patient is back to baseline - Discharge Instructions Follow Up With: NO,PCP [Primary Care Provider] - Additional Instructions: Try to find a doctor when you get to [place], you will need a primary care provider and a receptionist airline lounge. They will need to refill your medications. Start your new medications today. Take as directed. Stop smoking. Use nicotine patches as directed. Watch your diet. No spicy, fatty, fried foods. Eat smaller, more frequent meals. Return to the nearest ER for any new problems or concerns or if your symptoms return or worsen. - Diet and Activity Activity: resume usual activities as tolerated Diet: diabetic diet, low fat, low cholesterol, low salt diet Interval History: Ms. Gallagher is a 41-year-old female with history of chronic back pain on opioids, reflux, gastric bypass surgery, diabetes, hypertension who reported to the emergency department on with complaint of chest pressure, abdominal pain, nausea and vomiting. Reports feeling unwell for couple of days with intermittent chest pressure over the left side of her chest. She reports that she has not been able to keep any food down and has had a poor appetite and dry heaves. She reports that she had a brother who of what was most probably a bowel rupture, so her mother encouraged her to come to the emergency department for evaluation. Patient initially was still vomiting when she arrived on the floor, her abdomen was extremely tender in epigastric and upper abdomen. She has had gastric bypass surgery, as well as a prior colonoscopy that was negative. She denies prior reflux problems. She does, however, tell receptionist airline lounge that she had a mass in her throat that was biopsied in the past. CT abdomen and pelvis showed postop changes in the left upper quadrant with a possible inflammatory/ infectious process, multiple nonspecific small retroperitoneal and mesenteric lymph nodes, low-density adrenal lesion, multiple low below low-density foci in the adnexa bilaterally, and heterogenous uterus raising the question of fibroids. She was treated with omeprazole and Carafate, as well as Zofran. Her upper abdominal pain resolved by the next day. She claims to not be able to eat any food or keep fluids down. Patient had a stress test that showed left ventricle is mildly dilated, gated LVEF is 62%. There was a small sized, mild to moderate intensity, reversible perfusion defect involving the basal mid anterior wall this was consistent with reversible ischemia. Cardiology was consulted, they saw the patient and requested that urology and surgery were consulted to evaluate for GI and urologic portion of abnormal results on CT. Patient was seen by Dr. Holland and an EGD was done by him. There were nonobstructing, nonbleeding gastric alters with no stigmata of bleeding. There is no evidence of perforation. The largest lesion was 10 mm in largest dimension. Dr. Barrera's recommendation was to return to the unit on Protonix 8 mg per hour IV, and no aspirin, ibuprofen, naproxen or other and states or anti-inflammatory drugs. Patient still denies abdominal pain, area is nontender to palpation. She denies nausea, and states that she has not been able to hold down food. Patient has also been seen by urology and is recommended that she follow up outpatient with urology for MRI evaluation of possible left renal mass. Recommend that she do it in 6 months to evaluate for change in size. Cardiology recommended that she have an LHC, however they are unable to do it due to anemia, ulcers, and recommendations from surgery for no anticoagulation, no aspirin. She also had an echocardiogram that showed normal systolic function , LVEF 55-60%. Right ventricle appears grossly normal in size and function. Aortic valve was suboptimally visualized, it appears bicuspid with fusion of the left and noncoronary cusps. The valve is moderately calcified. Mild aortic stenosis, mild MR, mild TR, moderate AR. There is mild pulmonary hypertension. The recommendation was to consider MARIA GUADALUPE for further evaluation of the aortic valve is clinically indicated. Again, patient will not be able to have MARIA GUADALUPE due to anemia and inability to have anticoagulants or NSAIDs. Cardiology has signed off. Patient states that she is from [place], she is only in [place] for a short time and is leaving for [place] in 4 days. She said she will only be in [place] for 4 months, then will be going back to [place]. Both the cardiology REGISTERED PRIVATE DUTY NURSE and I stressed to her the importance of finding a primary care physician and a receptionist airline lounge when she is in [place]. We suggested that she follow up at her resident clinic since she will be near the [facility]. Patient reports this morning that she is drinking fluids and that she did not like her clear liquid tray, so she did not eat any breakfast. She has been up and down since yesterday afternoon, attempting to leave the unit to smoke cigarettes, attempting to leave the unit to go to the cafeteria. I saw the patient yesterday, we agreed that we would need to start weaning her IV pain medication down since she would not be going home with it. She agreed. When I saw her this morning she said that the decreased dose was not helping and was asking for increased dose with increased frequency. I told her that since it was not working we would just DC it since she cannot go home with it anyway and it is time for discharge. She verbalized understanding and stated that her normal, alleged home dose of OxyContin 10 mg is insufficient to help her pain. I explained to her that narcotics are not an evidence based method of treatment for ulcers and that in addition to her Protonix, she would need to make some modifications to her lifestyle and follow up with her primary care physician for continued management and medication refills. She agreed. About 30 minutes later she approaches me in the dictation room and states that she just wants to go home since we are not doing anything for her. She says that she wants to get her IV DC'd so she can go down to the cafeteria and get some food. I explained to her that I needed to speak with Dr. Holland to see if he signed off or had further recommendations. She went to her room and called Dr. holland , who did not speak with her on the phone. She has been anemic since arrival. She is chronically anemic and is aware that she has iron deficiency anemia, but she does not take the iron supplementation. We are treating it with ferrous sulfate 325 mg by mouth twice a day. Her hemoglobin is holding steady at 8.5, mild elevation from yesterday at 8.2. Patient is asymptomatic. She is able to walk around the unit, she is able to ambulate in her room, she is able to visit with family. All other labs and vital signs are stable and within normal limits. Patient is ready for discharge. Hospital course: Ms. Gallagher is a 41 year old female Time spent discussing smoking cessation with patient: 3 to 10 minutes - Time Spent with Patient Total time spent providing and/or coordinating discharge services: Less than 30 minutes - Constitutional Vitals: Temp Pulse Resp BP Pulse Ox 98.4 F 75 17 113/73 93 02/15/17 08:04 02/15/17 08:04 02/15/17 08:04 02/15/17 08:04 02/15/17 08:04 General appearance: Present: A&O X 3, pleasant, no acute distress, answers questions appropriately - Head Head exam: Present: normal inspection - Eye Eye exam: Present: normal appearance, conjuntiva pink - ENT ENT exam: Present: mucous membranes moist, normal exam, normal external ear exam - Neck Neck exam general surgery: Present: normal inspection. Absent: lymphadenopathy , tenderness - Respiratory Respiratory exam: Present: decreased breath sounds, CTAB. Absent: rales, rhonchi, wheezes - Expanded Cardiovascular Exam Location: Present: LUSB Intensity: 3/6 Peripheral pulses: 1+: Dorsalis Pedis (L) PM, Dorsalis Pedis (R) PM - GI/Abdominal GI/Abdominal exam: Present: normal bowel sounds, soft. Absent: hernia, hepatomegaly, tenderness - Extremities Exam Extremities exam: Present: normal inspection, warm, radial pulses palpable and symetrical. Absent: pedal edema, tenderness - Neurological Exam Neurological exam: Present: alert, oriented X3, no focal deficits. Absent: facial droop, speech deficit - Skin Skin exam: Present: dry, intact, warm. Absent: rash
[2017-02-15 11:41] VITALS: BP 114/68
== END 2017-02-15 12:35 | disposition home or self-care (01) ==
LOC: EMEROO 15:24 → 3BNU 15:24
PROVIDERS: ADMIT Internal Medicine; ATTEND Registered Nurse

== ENCOUNTER 2018-02-19 15:13 | Observation (INO) ==
--- NOTE | 2018-02-19 15:32 | Emergency Department Note ---
Disposition Clinical Impression: Elevated INR Disposition: Still a Patient Condition: Fair Referrals: NONE,PCP [Primary Care Provider] - Forms: Work/School Release, ED Satisfaction Letter Time of Disposition: 19:10 General Adult HPI - General Chief complaint: ED General Medical Stated complaint: High INR Time Seen by Provider: 02/19/18 15:22 Source: patient Mode of arrival: ambulatory Limitations: no limitations Nursing Notes Reviewed: Yes Vital Signs Reviewed: Yes - History of Present Illness HPI Narrative: Patient is a 42-year-old female with past medical history of mechanical valve replacement by Dr. Linda in [place], she currently takes Coumadin and follows it at home and uses a home monitor. Also has hx of HTN, DM, fatty liver. She states that she was in the ER for evaluation for chest discomfort about 4 days ago, she had an evaluation and was sent home. At that time, her INR was high. She was told to hold her Coumadin. She states that she checked her Coumadin on February 17, 2 days ago, and her INR was still elevated. She called her Coumadin clinic and was told to hold her Coumadin for 2 days. She is currently been off her Coumadin now for 3 days and checked her INR this morning and her machine told her that her INR was 8. She called her Coumadin clinic again and was told to come here for further evaluation. Only symptom currently is generalized fatigue. Denies any chest pain, shortness of breath, nausea, vomiting, fevers, diarrhea, blood in urine, blood in stool, vaginal bleeding. - Related Data Home Medications Medication Instructions Recorded Confirmed ARIPiprazole [Abilify] 10 mg PO DAILY 02/11/17 04/05/17 Albuterol Sulfate [Ventolin Hfa] 2 puff IH Q4-6H PRN 02/11/17 04/05/17 Docusate [Colace] 100 mg PO BID PRN 02/11/17 04/05/17 Gabapentin [Neurontin] 900 mg PO QID 02/11/17 04/05/17 Loratadine [Claritin] 10 mg PO DAILY 02/11/17 04/05/17 OxyCODONE Immed Rel [Roxicodone 10 10 mg PO QID 02/11/17 04/05/17 MG] Prazosin [Minipress] 1 mg PO HS 02/11/17 04/05/17 Quetiapine Fumarate [Seroquel Xr] 100 mg PO HS 02/11/17 04/05/17 cloNIDine HCl [CloNIDine HCl] 0.1 mg PO HS 02/11/17 04/05/17 Previous Rx's Medication Instructions Recorded Ferrous Sulfate 325 mg PO BIDWM #60 tab 02/15/17 Pantoprazole Sodium [Protonix] 40 mg PO DAILY #30 02/15/17 Aspirin Enteric Coated [Aspirin EC] 81 mg PO DAILY #30 tab 04/06/17 Atorvastatin [Lipitor] 40 mg PO HS #30 tab 04/06/17 Benzocaine 20% [Orajel] 1 gm TP TID PRN #1 tub 04/06/17 Isosorbide MONOnitrate (24 HR) 60 mg PO DAILY #30 tab.er.24h 04/06/17 [Imdur] Metoprolol [Lopressor] 12.5 mg PO BID #30 tab 04/06/17 Nicotine Patch [Nicoderm] 21 mg TD DAILY #28 patch 04/06/17 Allergies Allergy/AdvReac Type Severity Reaction Status Date / Time No Known Allergies Allergy Verified 02/19/18 15:37 All systems ED: reviewed and negative except as stated. Constitutional: Denies: fever Cardiovascular: Denies: chest pain Respiratory: Denies: cough, dyspnea Gastrointestinal: Denies: abdominal pain, nausea, vomiting, diarrhea Genitourinary: Denies: urgency, dysuria, frequency, hematuria Musculoskeletal: Denies: back pain Neurological: Denies: headache, weakness, numbness, paresthesias Endocrine: Reports: fatigue Past Medical History - Past Medical History Attestation: Yes The following information was validated with the patient. Source: patient Medical history: Reports: asthma, diabetes, GERD, hyperlipidemia, hypertension, valvular heart disease Surgical history: Reports: other, bariatric surgery Psychiatric history: Reports: anxiety, depression - Social History Smoking Status: Current every day smoker Smokeless Tobacco Status: No Alcohol use: Reports: occasionally, recent Drug use: Reports: none Physical Exam - General Limitations: no limitations General appearance: alert, in no apparent distress - Head Head exam: atraumatic, normocephalic, normal inspection - Eye Eye exam: Present: normal appearance, PERRL, EOMI - ENT ENT exam: normal exam, normal oropharynx, mucous membranes moist - Neck Neck exam: Present: normal inspection, full ROM, trachea midline - Chest Chest inspection: Present: normal inspection, symmetric chest wall rise - Respiratory Respiratory exam: Present: normal lung sounds bilaterally - Cardiovascular Cardiovascular exam: Present: regular rate, systolic murmur - Abdominal Exam Abdominal exam: Present: soft, Non-Tender. Absent: tenderness, distention, guarding, rebound, rigidity - Extremities Exam Extremities exam: Present: normal inspection, full ROM. Absent: tenderness, pedal edema - Neurological Exam Neurological exam: Present: alert, oriented X3 - Psychiatric Psychiatric exam: Present: normal affect, normal mood - Skin Skin exam: Present: warm, dry, intact, normal color Course Course Narrative: Vitals within normal limits. No concern for any active bleeding at this time. Physical exam benign. We will obtain CBC, PT/INR, EKG and troponin due to concern for fatigue. 16:40 troponin negative. EKG pending. INR 8.5. Hemoglobin 11. Reassessed patient, continues to just complain of mild fatigue. No other symptoms at this time. I discussed further about any other liver disease. Patient does state that she was told us that she had a "spot" in her liver that was believed to be fatty tissue about a year ago and she said that she never followed up for any further evaluation. She does admit also to a history of lymphoma denies any other cancer. 18:21 ultrasound of the liver was ordered for further assessment of liver lesion. However, I spoke with the on-call desktop technician and she stated that they would not come in for liver ultrasound unless it is approved by surgeon for emergency purposes. This is nonemergent at this time. We will obtain CT abdomen and pelvis with IV contrast for further assessment instead. This was discussed with the patient and she was agreeable with this plan. She has received contrast in the past with no issues. Pending CT abd pelvis pending. WIll sign out to Dr. Jean and Dr. Masters for further care and dispo. Vital Signs Temperature 98.0 F 02/19/18 15:32 Pulse Rate 90 02/19/18 15:32 Respiratory Rate 16 02/19/18 15:32 Blood Pressure 119/68 02/19/18 15:32 O2 Sat by Pulse Oximetry 98 02/19/18 15:32 Temperature 98.0 F 02/19/18 15:32 Pulse Rate 90 02/19/18 15:32 Respiratory Rate 16 02/19/18 15:32 Blood Pressure 119/68 02/19/18 15:32 O2 Sat by Pulse Oximetry 98 02/19/18 15:32 Oxygen Delivery Oxygen Delivery Room Air Medical Decision Making - MDM Narrative Medical decision making narrative: Vitals within normal limits. No concern for any active bleeding at this time. Physical exam benign. We will obtain CBC, PT/INR, EKG and troponin due to concern for fatigue. 16:40 troponin negative. EKG pending. INR 8.5. Hemoglobin 11. Reassessed patient, continues to just complain of mild fatigue. No other symptoms at this time. I discussed further about any other liver disease. Patient does state that she was told us that she had a "spot" in her liver that was believed to be fatty tissue about a year ago and she said that she never followed up for any further evaluation. She does admit also to a history of lymphoma denies any other cancer. 18:21 ultrasound of the liver was ordered for further assessment of liver lesion. However, I spoke with the on-call desktop technician and she stated that they would not come in for liver ultrasound unless it is approved by surgeon for emergency purposes. This is nonemergent at this time. We will obtain CT abdomen and pelvis with IV contrast for further assessment instead. This was discussed with the patient and she was agreeable with this plan. She has received contrast in the past with no issues. Pending CT abd pelvis pending. WIll sign out to Dr. Jean and Dr. Masters for further care and dispo - Medical Records Medical records reviewed: Yes I reviewed the patient's medical records. - Lab Data Lab results reviewed: Yes I reviewed the patient's lab results. Result diagrams: 02/19/18 15:36 02/19/18 15:36 Lab Results 02/19/18 02/19/18 02/19/18 Range/Units 15:36 15:36 15:36 WBC 7.0 (4.3-11.1) K/mcL RBC 5.25 H (3.82-4.97) M/mcL Hgb 11.0 L (11.5-15.4) g/dL Hct 38.0 (35.3-44.9) % MCV 72.4 L (83.0-100.0) fL MCH 21.0 L (28.0-33.3) pg MCHC 28.9 L (31.6-35.5) g/dL RDW 19.1 H (11.5-14.5) % Plt Count 313 (140-400) K/mcL MPV 9.6 (9.4-12.4) fL Immature Gran % 0.3 (0-4) % Seg Neutrophils % 59.8 % Lymphocytes % 29.5 % Monocytes % 7.7 % Eosinophils % 2.0 % Basophils % 0.7 % Neutrophils # 4.2 (1.6-8.9) K/mcL Lymphocytes # 2.1 (0.6-4.6) K/mcL Monocytes # 0.5 (0.0-1.3) K/mcL Eosinophils # 0.1 (0.0-0.6) K/mcL Basophils # 0.1 (0.0-0.2) K/mcL Platelet Estimate Normal (Normal) Hypochromasia Present A (Not Present) Anisocytosis 2+ A (Not Present) Microcytosis Present A (Not Present) PT 96.1 H* (9.4-12.1) Seconds INR 8.5 H* APTT 63.6 H (26.0-36.0) Seconds Sodium 133 L (136-145) mEq/L Potassium 4.1 (3.5-5.1) mEq/L Chloride 110 H (98-107) mEq/L Carbon Dioxide 20 L (23-29) mEq/L BUN 11 (6-20) mg/dL Creatinine 0.73 (0.60-1.20) mg/dL Est GFR ( Amer) > 60 (> 60) Est GFR (Non-Af Amer) > 60 (> 60) BUN/Creatinine Ratio 15 (6-26) Glucose 99 (70-105) mg/dL Calculated Osmolality 275 L (280-300) Calcium 10.1 (8.6-10.3) mg/dL Total Bilirubin (0.3-1.0) mg/dL Direct Bilirubin (0.0-0.2) mg/dL Indirect Bilirubin (0.0-1.2) mg/dL AST (13-39) Units/L ALT (7-52) Units/L Alkaline Phosphatase (34-104) Units/L Troponin I (< 0.04) ng/mL Serum Total Protein (6.4-8.9) g/dL Albumin (3.5-5.7) g/dL Globulin (2.4-3.5) g/dL Albumin/Globulin Ratio (1.1-2.2) 02/19/18 Range/Units 15:36 WBC (4.3-11.1) K/mcL RBC (3.82-4.97) M/mcL Hgb (11.5-15.4) g/dL Hct (35.3-44.9) % MCV (83.0-100.0) fL MCH (28.0-33.3) pg MCHC (31.6-35.5) g/dL RDW (11.5-14.5) % Plt Count (140-400) K/mcL MPV (9.4-12.4) fL Immature Gran % (0-4) % Seg Neutrophils % % Lymphocytes % % Monocytes % % Eosinophils % % Basophils % % Neutrophils # (1.6-8.9) K/mcL Lymphocytes # (0.6-4.6) K/mcL Monocytes # (0.0-1.3) K/mcL Eosinophils # (0.0-0.6) K/mcL Basophils # (0.0-0.2) K/mcL Platelet Estimate (Normal) Hypochromasia (Not Present) Anisocytosis (Not Present) Microcytosis (Not Present) PT (9.4-12.1) Seconds INR APTT (26.0-36.0) Seconds Sodium (136-145) mEq/L Potassium (3.5-5.1) mEq/L Chloride (98-107) mEq/L Carbon Dioxide (23-29) mEq/L BUN (6-20) mg/dL Creatinine (0.60-1.20) mg/dL Est GFR ( Amer) (> 60) Est GFR (Non-Af Amer) (> 60) BUN/Creatinine Ratio (6-26) Glucose (70-105) mg/dL Calculated Osmolality (280-300) Calcium (8.6-10.3) mg/dL Total Bilirubin 0.4 (0.3-1.0) mg/dL Direct Bilirubin 0.0 (0.0-0.2) mg/dL Indirect Bilirubin 0.4 (0.0-1.2) mg/dL AST 17 (13-39) Units/L ALT 9 (7-52) Units/L Alkaline Phosphatase 85 (34-104) Units/L Troponin I < 0.03 (< 0.04) ng/mL Serum Total Protein 7.7 (6.4-8.9) g/dL Albumin 4.2 (3.5-5.7) g/dL Globulin 3.5 (2.4-3.5) g/dL Albumin/Globulin Ratio 1.2 (1.1-2.2) - Radiology Data Radiology results reviewed: Yes I reviewed the patient's radiology results. - EKG Data EKG #1 EKG attestation: Yes I reviewed and interpreted this EKG. EKG results narrative: 02/19/2018 at 16:41. Normal sinus rhythm. Rate 79. NJ 141. QRS 93. QTC 416. Left axis deviation. No acute ST elevation or depression. S.B.A.R. - S.B.A.R. Situation: Demographics, MOA Background: Presenting Complaint, Relevant PMH, Meds, & Allergies Assessment: Vital Signs, Course and respsone to treatment, Exam Concerns, Patient/Family Expectation, Pertinant Lab Results Recommendation: Barrier(s) to disposition, Recommendation based on pending studies, treatments, or consults S.B.A.R. Report Given to: Dr. Copeland and Dr. Masters
[2018-02-19 15:46] LABS: Basophils # 0.1 K/mcL (0.0-0.2); Basophils % 0.7 %; Eosinophils # 0.1 K/mcL (0.0-0.6); Immature Granulocytes % 0.3 % (0-4); Lymphocytes # 2.1 K/mcL (0.6-4.6); Lymphocytes % 29.5 %; Mean Corpuscular HGB Conc 28.9 g/dL (31.6-35.5); Mean Corpuscular Volume 72.4 fL (83.0-100.0); Mean Platelet Volume 9.6 fL (9.4-12.4); Monocytes # 0.5 K/mcL (0.0-1.3); Monocytes % 7.7 %; Neutrophils # 4.2 K/mcL (1.6-8.9); Platelet Count 313 K/mcL (140-400); Red Blood Count 5.25 M/mcL (3.82-4.97); Red Cell Distribution Width 19.1 % (11.5-14.5); Segmented Neutrophils % 59.8 %
[2018-02-19 16:00] LABS: Activated Partial Thrombo Time 63.6 Seconds (26.0-36.0)
[2018-02-19 16:03] LABS: Prothrombin Time 96.1 Seconds (9.4-12.1)
[2018-02-19 16:04] LABS: Anisocytosis 2+ (Not Present); Hypochromasia Present (Not Present); INR 8.5; Microcytosis Present (Not Present); Platelet Estimate Normal (Normal)
[2018-02-19 16:05] LABS: BUN/Creatinine Ratio 15 (6-26); Blood Urea Nitrogen 11 mg/dL (6-20); Calcium 10.1 mg/dL (8.6-10.3); Carbon Dioxide 20 mEq/L (23-29); Chloride 110 mEq/L (98-107); Glucose 99 mg/dL (70-105); Osmolality,Calculated 275 (280-300); Potassium 4.1 mEq/L (3.5-5.1); Sodium 133 mEq/L (136-145); eGFR For Non-African Americans > 60 (> 60)
[2018-02-19 16:08] LABS: Alanine Aminotransferase 9 Units/L (7-52); Albumin 4.2 g/dL (3.5-5.7); Albumin/Globulin Ratio 1.2 (1.1-2.2); Alkaline Phosphatase 85 Units/L (34-104); Aspartate Amino Transferase 17 Units/L (13-39); Bilirubin,Indirect 0.4 mg/dL (0.0-1.2); Bilirubin,Total 0.4 mg/dL (0.3-1.0); Globulin 3.5 g/dL (2.4-3.5); Total Protein 7.7 g/dL (6.4-8.9); Troponin I < 0.03 ng/mL (< 0.04)
[2018-02-19] MEDS ORDERED: *HR* Phytonadione 5 MG TABLET PO ONE (16:48)
--- NOTE | 2018-02-19 17:25 | Emergency Department Note ---
Disposition Clinical Impression: Elevated INR Disposition: Still a Patient Condition: Fair Referrals: NONE,PCP [Primary Care Provider] - Forms: ED Satisfaction Letter, Work/School Release General Adult HPI - General Chief complaint: ED General Medical Stated complaint: High INR Time Seen by Provider: 02/19/18 15:22 Source: patient Mode of arrival: ambulatory Limitations: no limitations Nursing Notes Reviewed: Yes Vital Signs Reviewed: Yes - History of Present Illness Pain Scale: 0 - Related Data Home Medications Medication Instructions Recorded Confirmed ARIPiprazole [Abilify] 10 mg PO DAILY 02/11/17 04/05/17 Albuterol Sulfate [Ventolin Hfa] 2 puff IH Q4-6H PRN 02/11/17 04/05/17 Docusate [Colace] 100 mg PO BID PRN 02/11/17 04/05/17 Gabapentin [Neurontin] 900 mg PO QID 02/11/17 04/05/17 Loratadine [Claritin] 10 mg PO DAILY 02/11/17 04/05/17 OxyCODONE Immed Rel [Roxicodone 10 10 mg PO QID 02/11/17 04/05/17 MG] Prazosin [Minipress] 1 mg PO HS 02/11/17 04/05/17 Quetiapine Fumarate [Seroquel Xr] 100 mg PO HS 02/11/17 04/05/17 cloNIDine HCl [CloNIDine HCl] 0.1 mg PO HS 02/11/17 04/05/17 Previous Rx's Medication Instructions Recorded Ferrous Sulfate 325 mg PO BIDWM #60 tab 02/15/17 Pantoprazole Sodium [Protonix] 40 mg PO DAILY #30 02/15/17 Aspirin Enteric Coated [Aspirin EC] 81 mg PO DAILY #30 tab 04/06/17 Atorvastatin [Lipitor] 40 mg PO HS #30 tab 04/06/17 Benzocaine 20% [Orajel] 1 gm TP TID PRN #1 tub 04/06/17 Isosorbide MONOnitrate (24 HR) 60 mg PO DAILY #30 tab.er.24h 04/06/17 [Imdur] Metoprolol [Lopressor] 12.5 mg PO BID #30 tab 04/06/17 Nicotine Patch [Nicoderm] 21 mg TD DAILY #28 patch 04/06/17 Allergies Allergy/AdvReac Type Severity Reaction Status Date / Time No Known Allergies Allergy Verified 02/19/18 15:37 Constitutional: Denies: fever Cardiovascular: Denies: chest pain Respiratory: Denies: cough, dyspnea Gastrointestinal: Denies: abdominal pain, nausea, vomiting, diarrhea Genitourinary: Denies: urgency, dysuria, frequency, hematuria Musculoskeletal: Denies: back pain Neurological: Denies: headache, weakness, numbness, paresthesias Endocrine: Reports: fatigue Past Medical History - Past Medical History Medical history: Reports: asthma, diabetes, GERD, hyperlipidemia, hypertension, valvular heart disease Surgical history: Reports: other, bariatric surgery Psychiatric history: Reports: anxiety, depression - Social History Smoking Status: Current every day smoker Smokeless Tobacco Status: No Alcohol use: Reports: occasionally, recent Drug use: Reports: none Physical Exam - General Limitations: no limitations General appearance: alert, in no apparent distress Course Vital Signs Temperature 98.0 F 02/19/18 15:32 Pulse Rate 90 02/19/18 15:32 Respiratory Rate 16 02/19/18 15:32 Blood Pressure 119/68 02/19/18 15:32 O2 Sat by Pulse Oximetry 98 02/19/18 15:32 Temperature 98.0 F 02/19/18 15:32 Pulse Rate 90 02/19/18 15:32 Respiratory Rate 16 02/19/18 15:32 Blood Pressure 119/68 02/19/18 15:32 O2 Sat by Pulse Oximetry 98 02/19/18 15:32 Oxygen Delivery Oxygen Delivery Room Air Medical Decision Making - Lab Data Result diagrams: 02/19/18 15:36 02/19/18 15:36 Lab Results 02/19/18 02/19/18 02/19/18 Range/Units 15:36 15:36 15:36 WBC 7.0 (4.3-11.1) K/mcL RBC 5.25 H (3.82-4.97) M/mcL Hgb 11.0 L (11.5-15.4) g/dL Hct 38.0 (35.3-44.9) % MCV 72.4 L (83.0-100.0) fL MCH 21.0 L (28.0-33.3) pg MCHC 28.9 L (31.6-35.5) g/dL RDW 19.1 H (11.5-14.5) % Plt Count 313 (140-400) K/mcL MPV 9.6 (9.4-12.4) fL Immature Gran % 0.3 (0-4) % Seg Neutrophils % 59.8 % Lymphocytes % 29.5 % Monocytes % 7.7 % Eosinophils % 2.0 % Basophils % 0.7 % Neutrophils # 4.2 (1.6-8.9) K/mcL Lymphocytes # 2.1 (0.6-4.6) K/mcL Monocytes # 0.5 (0.0-1.3) K/mcL Eosinophils # 0.1 (0.0-0.6) K/mcL Basophils # 0.1 (0.0-0.2) K/mcL Platelet Estimate Normal (Normal) Hypochromasia Present A (Not Present) Anisocytosis 2+ A (Not Present) Microcytosis Present A (Not Present) PT 96.1 H* (9.4-12.1) Seconds INR 8.5 H* APTT 63.6 H (26.0-36.0) Seconds Sodium 133 L (136-145) mEq/L Potassium 4.1 (3.5-5.1) mEq/L Chloride 110 H (98-107) mEq/L Carbon Dioxide 20 L (23-29) mEq/L BUN 11 (6-20) mg/dL Creatinine 0.73 (0.60-1.20) mg/dL Est GFR ( Amer) > 60 (> 60) Est GFR (Non-Af Amer) > 60 (> 60) BUN/Creatinine Ratio 15 (6-26) Glucose 99 (70-105) mg/dL Calculated Osmolality 275 L (280-300) Calcium 10.1 (8.6-10.3) mg/dL Total Bilirubin (0.3-1.0) mg/dL Direct Bilirubin (0.0-0.2) mg/dL Indirect Bilirubin (0.0-1.2) mg/dL AST (13-39) Units/L ALT (7-52) Units/L Alkaline Phosphatase (34-104) Units/L Troponin I (< 0.04) ng/mL Serum Total Protein (6.4-8.9) g/dL Albumin (3.5-5.7) g/dL Globulin (2.4-3.5) g/dL Albumin/Globulin Ratio (1.1-2.2) 02/19/18 Range/Units 15:36 WBC (4.3-11.1) K/mcL RBC (3.82-4.97) M/mcL Hgb (11.5-15.4) g/dL Hct (35.3-44.9) % MCV (83.0-100.0) fL MCH (28.0-33.3) pg MCHC (31.6-35.5) g/dL RDW (11.5-14.5) % Plt Count (140-400) K/mcL MPV (9.4-12.4) fL Immature Gran % (0-4) % Seg Neutrophils % % Lymphocytes % % Monocytes % % Eosinophils % % Basophils % % Neutrophils # (1.6-8.9) K/mcL Lymphocytes # (0.6-4.6) K/mcL Monocytes # (0.0-1.3) K/mcL Eosinophils # (0.0-0.6) K/mcL Basophils # (0.0-0.2) K/mcL Platelet Estimate (Normal) Hypochromasia (Not Present) Anisocytosis (Not Present) Microcytosis (Not Present) PT (9.4-12.1) Seconds INR APTT (26.0-36.0) Seconds Sodium (136-145) mEq/L Potassium (3.5-5.1) mEq/L Chloride (98-107) mEq/L Carbon Dioxide (23-29) mEq/L BUN (6-20) mg/dL Creatinine (0.60-1.20) mg/dL Est GFR ( Amer) (> 60) Est GFR (Non-Af Amer) (> 60) BUN/Creatinine Ratio (6-26) Glucose (70-105) mg/dL Calculated Osmolality (280-300) Calcium (8.6-10.3) mg/dL Total Bilirubin 0.4 (0.3-1.0) mg/dL Direct Bilirubin 0.0 (0.0-0.2) mg/dL Indirect Bilirubin 0.4 (0.0-1.2) mg/dL AST 17 (13-39) Units/L ALT 9 (7-52) Units/L Alkaline Phosphatase 85 (34-104) Units/L Troponin I < 0.03 (< 0.04) ng/mL Serum Total Protein 7.7 (6.4-8.9) g/dL Albumin 4.2 (3.5-5.7) g/dL Globulin 3.5 (2.4-3.5) g/dL Albumin/Globulin Ratio 1.2 (1.1-2.2) Attestation Statement - Attestation Attestation: I, Prasanna Ho, examined this patient and my medical decision-making was reviewed with the PHOTOGRAPHIC ENLARGER OPERATOR/PA/Advanced Practice Nurse/Resident Physician. I agree with the documented findings, disposition and treatment plan as described except to the extent set forth below. 42-year-old female presents emergency Department with concerns of elevated INR. Patient has a history of valve replacement and is taking Coumadin. She was recently evaluated in the emergency department, they noted her INR to be elevated. She stopped for 2 days and the INR improved, she started taking it again and now checked her INR 2 days ago. It was significantly elevated at 6.5. She stopped taking the Coumadin however the INR continued to rise and is now 8.5. Patient denies fever, chills, vomiting, jaundice, recent trauma, diarrhea. LFTs were not significantly elevated. Patient was given vitamin K in the emergency department. We ordered ultrasound of the liver to further evaluate possible malignancy. She will likely be admitted for further care and evaluation.
[2018-02-19] MEDS ORDERED: Isovue-370 500 ML INFUS..BTL IV ONE (18:15)
--- NOTE | 2018-02-19 19:47 | Emergency Department Note ---
Disposition Clinical Impression: Elevated INR, Mechanical heart valve present, Renal lesion Disposition: Admitted As Inpatient Condition: Fair Time of Disposition: 20:20 General Adult HPI - General Chief complaint: ED General Medical Stated complaint: High INR Time Seen by Provider: 02/19/18 15:22 Source: patient Mode of arrival: ambulatory Limitations: no limitations - History of Present Illness HPI Narrative: Patient was seen and examined. Patient's history was confirmed. Please see the prior provider documentation for complete history and physical. Pain Scale: 0 - Related Data Home Medications Medication Instructions Recorded Confirmed Albuterol Sulfate [Ventolin Hfa] 2 puff IH Q4-6H PRN 02/11/17 02/19/18 Gabapentin [Neurontin] 900 mg PO QID 02/11/17 02/19/18 Loratadine [Claritin] 10 mg PO DAILY 02/11/17 02/19/18 OxyCODONE Immed Rel [Roxicodone 10 10 mg PO QID 02/11/17 02/19/18 MG] Warfarin [Coumadin] 7.5 mg PO DAILY 02/19/18 02/19/18 Previous Rx's Medication Instructions Recorded Ferrous Sulfate 325 mg PO BIDWM #60 tab 02/15/17 Pantoprazole Sodium [Protonix] 40 mg PO DAILY #30 02/15/17 Atorvastatin [Lipitor] 40 mg PO HS #30 tab 04/06/17 Benzocaine 20% [Orajel] 1 gm TP TID PRN #1 tub 04/06/17 Nicotine Patch [Nicoderm] 21 mg TD DAILY #28 patch 04/06/17 Allergies Allergy/AdvReac Type Severity Reaction Status Date / Time No Known Allergies Allergy Verified 02/19/18 15:37 Constitutional: Denies: fever Cardiovascular: Denies: chest pain Respiratory: Denies: cough, dyspnea Gastrointestinal: Denies: abdominal pain, nausea, vomiting, diarrhea Genitourinary: Denies: urgency, dysuria, frequency, hematuria Musculoskeletal: Denies: back pain Neurological: Denies: headache, weakness, numbness, paresthesias Endocrine: Reports: fatigue Past Medical History - Past Medical History Medical history: Reports: asthma, diabetes, GERD, hyperlipidemia, hypertension, valvular heart disease Surgical history: Reports: other, bariatric surgery Psychiatric history: Reports: anxiety, depression - Social History Smoking Status: Current every day smoker Smokeless Tobacco Status: No Alcohol use: Reports: occasionally, recent Drug use: Reports: none Physical Exam - General Limitations: no limitations General appearance: alert, in no apparent distress Course Course Narrative: Patient was seen and examined. Patient's resting comfortably in no acute distress. Patient states she has had an elevated INR over the past 3 days. Patient's been holding her Coumadin for the past 3 days with no decrease in INR. Patient denies any additional medications. Patient denies any change in her diet. States she has had decreased oral intake. Incidentally patient's also been complaining of abdominal pain diffusely over the past week. At this time the patient's awaiting a CT the abdomen pelvis. - Reevaluation(s) Reevaluation #1: Patient was seen and examined. Patient was updated on CT results of the abdomen pelvis. All questions were answered. The renal lesion was discussed with the patient at bedside. Time: 20:52 Vital Signs Temperature 98.0 F 02/19/18 15:32 Pulse Rate 90 02/19/18 15:32 Respiratory Rate 16 02/19/18 15:32 Blood Pressure 119/68 02/19/18 15:32 O2 Sat by Pulse Oximetry 98 02/19/18 15:32 Temperature 97.8 F 02/20/18 00:01 Pulse Rate 91 02/20/18 00:01 Respiratory Rate 18 02/20/18 00:01 Blood Pressure 124/72 02/20/18 00:01 O2 Sat by Pulse Oximetry 95 02/20/18 00:01 Oxygen Delivery Oxygen Delivery Room Air Medical Decision Making - [facility] Narrative Medical decision making narrative: 42-year-old female presents for evaluation of a high INR. Patient was given oral vitamin K by the prior provider. Patient does have an elevated INR due to her mechanical heart valve. Patient states she has been holding her INR however continue to be high. Disposition per the prior provider was admission. Patient also been complaining of abdominal pain over the past week. Patient shows no signs of active bleeding. Disposition was believed admission given the elevated INR that has not improved over the past several days with withholding her medications. Patient denied any changes in diet or changes in medications. - Lab Data Lab results reviewed: Yes I reviewed the patient's lab results. Result diagrams: 02/19/18 15:36 02/19/18 15:36 Lab Results 02/19/18 02/19/18 02/19/18 Range/Units 15:36 15:36 15:36 WBC 7.0 (4.3-11.1) K/mcL RBC 5.25 H (3.82-4.97) M/mcL Hgb 11.0 L (11.5-15.4) g/dL Hct 38.0 (35.3-44.9) % MCV 72.4 L (83.0-100.0) fL MCH 21.0 L (28.0-33.3) pg MCHC 28.9 L (31.6-35.5) g/dL RDW 19.1 H (11.5-14.5) % Plt Count 313 (140-400) K/mcL MPV 9.6 (9.4-12.4) fL Immature Gran % 0.3 (0-4) % Seg Neutrophils % 59.8 % Lymphocytes % 29.5 % Monocytes % 7.7 % Eosinophils % 2.0 % Basophils % 0.7 % Neutrophils # 4.2 (1.6-8.9) K/mcL Lymphocytes # 2.1 (0.6-4.6) K/mcL Monocytes # 0.5 (0.0-1.3) K/mcL Eosinophils # 0.1 (0.0-0.6) K/mcL Basophils # 0.1 (0.0-0.2) K/mcL Platelet Estimate Normal (Normal) Hypochromasia Present A (Not Present) Anisocytosis 2+ A (Not Present) Microcytosis Present A (Not Present) PT 96.1 H* (9.4-12.1) Seconds INR 8.5 H* APTT 63.6 H (26.0-36.0) Seconds Sodium 133 L (136-145) mEq/L Potassium 4.1 (3.5-5.1) mEq/L Chloride 110 H (98-107) mEq/L Carbon Dioxide 20 L (23-29) mEq/L BUN 11 (6-20) mg/dL Creatinine 0.73 (0.60-1.20) mg/dL Est GFR ( Amer) > 60 (> 60) Est GFR (Non-Af Amer) > 60 (> 60) BUN/Creatinine Ratio 15 (6-26) Glucose 99 (70-105) mg/dL Calculated Osmolality 275 L (280-300) Calcium 10.1 (8.6-10.3) mg/dL Total Bilirubin (0.3-1.0) mg/dL Direct Bilirubin (0.0-0.2) mg/dL Indirect Bilirubin (0.0-1.2) mg/dL AST (13-39) Units/L ALT (7-52) Units/L Alkaline Phosphatase (34-104) Units/L Troponin I (< 0.04) ng/mL Serum Total Protein (6.4-8.9) g/dL Albumin (3.5-5.7) g/dL Globulin (2.4-3.5) g/dL Albumin/Globulin Ratio (1.1-2.2) 02/19/18 Range/Units 15:36 WBC (4.3-11.1) K/mcL RBC (3.82-4.97) M/mcL Hgb (11.5-15.4) g/dL Hct (35.3-44.9) % MCV (83.0-100.0) fL MCH (28.0-33.3) pg MCHC (31.6-35.5) g/dL RDW (11.5-14.5) % Plt Count (140-400) K/mcL MPV (9.4-12.4) fL Immature Gran % (0-4) % Seg Neutrophils % % Lymphocytes % % Monocytes % % Eosinophils % % Basophils % % Neutrophils # (1.6-8.9) K/mcL Lymphocytes # (0.6-4.6) K/mcL Monocytes # (0.0-1.3) K/mcL Eosinophils # (0.0-0.6) K/mcL Basophils # (0.0-0.2) K/mcL Platelet Estimate (Normal) Hypochromasia (Not Present) Anisocytosis (Not Present) Microcytosis (Not Present) PT (9.4-12.1) Seconds INR APTT (26.0-36.0) Seconds Sodium (136-145) mEq/L Potassium (3.5-5.1) mEq/L Chloride (98-107) mEq/L Carbon Dioxide (23-29) mEq/L BUN (6-20) mg/dL Creatinine (0.60-1.20) mg/dL Est GFR ( Amer) (> 60) Est GFR (Non-Af Amer) (> 60) BUN/Creatinine Ratio (6-26) Glucose (70-105) mg/dL Calculated Osmolality (280-300) Calcium (8.6-10.3) mg/dL Total Bilirubin 0.4 (0.3-1.0) mg/dL Direct Bilirubin 0.0 (0.0-0.2) mg/dL Indirect Bilirubin 0.4 (0.0-1.2) mg/dL AST 17 (13-39) Units/L ALT 9 (7-52) Units/L Alkaline Phosphatase 85 (34-104) Units/L Troponin I < 0.03 (< 0.04) ng/mL Serum Total Protein 7.7 (6.4-8.9) g/dL Albumin 4.2 (3.5-5.7) g/dL Globulin 3.5 (2.4-3.5) g/dL Albumin/Globulin Ratio 1.2 (1.1-2.2) - Radiology Data Radiology results reviewed: Yes I reviewed the patient's radiology results. Abdomen/Pelvis CT 02/19/18 18:15 IMPRESSION: 1. No acute abdominopelvic abnormality. 2. Stable 1.1 cm heterogeneously enhancing solid left renal cortical lesion concerning for malignancy. Nonemergent follow-up renal mass protocol MRI or CT is recommended. 3. Stable bilateral adrenal adenomas. 4. Prior gastric bypass surgery. D/ / Grant West / Grant West Interpreting Provider: Grant West S.B.ACelia - SBette Situation: Demographics Background: Presenting Complaint Assessment: Vital Signs, Course and respsone to treatment, Patient/Family Expectation Recommendation: Barrier(s) to disposition, Recommendation based on pending studies, treatments, or consults S.B.ACelia Report Given to: Dr. Kingsley Wilson Repor Time: 20:20 Attestation Statement - Attestation Attestation: I examined this patient and my medical decision-making was reviewed with the Resident Physician. I agree with the documented findings, disposition and treatment plan as described except to the extent set forth below. I received this patient in signout. Findings consistent with elevated INR. Patient was given vitamin K prior to my arrival. Patient has no signs of hemorrhage at this time. Patient will be admitted for further management of supratherapeutic INR.
[2018-02-19] MEDS ORDERED: Ondansetron 4 MG/2 ML VIAL IVP ONE (20:41)
[2018-02-19] MEDS ORDERED: Ondansetron 4 MG/2 ML VIAL ONE (20:44)
[2018-02-19] MEDS ORDERED: Naloxone 0.4 MG/ML INJ IVP PRN (22:17)
[2018-02-19] MEDS ORDERED: Ondansetron ODT 4 MG TAB.RAPDIS SL PRN (22:23)
--- NOTE | 2018-02-19 22:29 | Internal Med History&Physical ---
Date of Encounter: 02/20/18 Time of Encounter: 21:50 Internal Medicine - H&P: HPI Chief complaint: Supratherapeutic INR Admitted From: Home Plans for Post Hospital Care: Home History of present illness: Ms. Gallagher is a 42 year old female Patient states this past week she checked her INR on the and it was 7.3. She notified her Coumadin clinic of the result and the advised her to hold her Coumadin and recheck in 2 days. On the she rechecked it and it was greater than 8, where her home INR meter maxes out. She then called the Coumadin clinic again, and they advised her to go the emergency room for further evaluation. She states that recently she has been having a lot of diarrhea and nausea, and she has not been eating as she normally does. In the emergency room recheck of her Coumadin shows that there was 8.5. An abdominal pelvic CT showed no acute abnormalities, but did show stable 1.1 cm header generosity enhancing solid lesion on the left kidney, concerning for malignancy. 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 She has been on Coumadin for 6 months, and has had no issues with it up until this point. She also has a history of diabetes, status post right midfoot amputation. Currently she is no longer on diabetes medication as she underwent gastric bypass surgery and has been able to control her blood sugars without medications. Currently patient has no complaints, and denies nausea, vomiting, diarrhea, constipation, chest pain, abdominal pain. She denies bleeding, hematuria and blood in her stools. Past Med Surg Social Fam HX - Past Medical History Medical history: asthma, diabetes, GERD, hyperlipidemia, hypertension, valvular heart disease Additional medical history: anemia Psychiatric history: anxiety, depression - Past Surgical History Surgical History: other, bariatric surgery Additional surgical history: gastric bypass, right foot (all toes) amputation - Social History Smoking Status: Current every day smoker Smokeless Tobacco Status: No Alcohol use: occasionally, recent Drug use: none - Family History Mother Living Status: Still Living Hx Family Cardiac Disorders: No Hx Family Respiratory Disorders: Yes (COPD) Brother Living Status: Hx Family Cardiac Disorders: Yes Hx Family GI Disorders: Yes Internal Medicine - H&P: Meds Albuterol Sulfate [Ventolin Hfa] 2 puff IH Q4-6H PRN 02/11/17 [History] Gabapentin [Neurontin] 900 mg PO QID 02/11/17 [History] Loratadine [Claritin] 10 mg PO DAILY 02/11/17 [History] OxyCODONE Immed Rel [Roxicodone 10 MG] 10 mg PO QID 02/11/17 [History] Ferrous Sulfate 325 mg PO BIDWM #60 tab 02/15/17 [Rx] Pantoprazole Sodium [Protonix] 40 mg PO DAILY #30 granpkt. 02/15/17 [Rx] Atorvastatin [Lipitor] 40 mg PO HS #30 tab 04/06/17 [Rx] Benzocaine 20% [Orajel] 1 gm TP TID PRN #1 tub 04/06/17 [Rx] Nicotine Patch [Nicoderm] 21 mg TD DAILY #28 patch 04/06/17 [Rx] Warfarin [Coumadin] 7.5 mg PO DAILY 02/19/18 [History] 3 Allergy/AdvReac Type Severity Reaction Status Date / Time No Known Allergies Allergy Verified 02/19/18 15:37 All Systems PM: A 10-system review of systems was performed and is negative for pertinent findings except as documented above in the HPI. - Constitutional Vitals: Temp Pulse Resp BP Pulse Ox 98.0 F 86 14 137/77 97 02/19/18 20:39 02/19/18 20:40 02/19/18 20:40 02/19/18 20:40 02/19/18 20:40 General appearance: Present: cooperative, A&O X 3, pleasant, no acute distress, answers questions appropriately - Head Head exam: Present: normal inspection - Eye Eye exam: Present: EOMI, normal appearance - Neck Neck exam general surgery: Present: full ROM - Respiratory Respiratory exam: Present: CTAB. Absent: chest wall tenderness, decreased breath sounds, wheezes - Cardiovascular Cardiovascular exam: Present: RRR, systolic murmur - GI/Abdominal GI/Abdominal exam: Present: normal bowel sounds, soft, tenderness Additional comments: Mild left upper quadrant with palpation - Extremities Exam Extremities exam: Present: warm, radial pulses palpable and symmetrical. Absent : calf tenderness, tenderness Additional comments: Right mid-foot amputation - Neurological Exam Neurological exam: Present: oriented X3, strengths equal and symetr throughout. Absent: facial droop, speech deficit - Psychiatric Psychiatric exam: Present: normal mood - Skin Skin exam: Present: dry, normal color, warm Internal Med - H&P Results - Labs CBC & Chem 7: 02/19/18 15:36 02/19/18 15:36 - VTE Reasons for not Prescribing Prophylaxis: Medical contraindication - Assessment and plan (1) Supratherapeutic INR Current Visit: Yes Status: Acute Assessment and plan: 2.5mg Vitamin K given in the emergency room. No signs of bleeding, patient stable. Continue to monitor Repeat INR in the morning (2) Nausea Current Visit: Yes Status: Acute Assessment and plan: Resolved at this time, patient given Zofran in the emergency room. Continue antinausea medication as needed (3) Mechanical heart valve present Current Visit: Yes Status: Acute Assessment and plan: Surgery performed in [place]. Put on Coumadin for anticoagulation. Hold Coumadin due to elevated INR Continue to monitor. (4) Hyperlipidemia Current Visit: No Status: Chronic Assessment and plan: Continue home meds. Qualifiers: Hyperlipidemia type: unspecified Qualified Code(s): E78.5 - Hyperlipidemia , unspecified (5) Tobacco abuse Current Visit: No Status: Chronic Assessment and plan: Nicotine patch 21 mg (6) Left renal mass Current Visit: No Status: Acute Assessment and plan: Abdominal pelvic CT showed left renal mass concerning for malignancy. Radiologist recommended nonemergent renal mass protocol MRI or CT for further evaluation. - Time Spent With Patient Total time spent is greater than 50% in coordination of care (as documented) at patient's floor/unit and/or counseling patient: Greater than 35 minutes
[2018-02-19] MEDS ORDERED: Nicotine 21 MG PATCH.TD24 TD SCH (23:30)
[2018-02-19] MEDS ORDERED: Gabapentin 300 MG CAPSULE PO ONE (23:30)
[2018-02-19] MEDS: *HR* OxyCODONE Immed Rel 5 MG TABLET PO PRN (23:35)
[2018-02-20 05:20] LABS: Hemoglobin 10.1 g/dL (11.5-15.4); Mean Corpuscular HGB Conc 28.1 g/dL (31.6-35.5); Mean Corpuscular Hemoglobin 20.5 pg (28.0-33.3); Mean Platelet Volume 9.9 fL (9.4-12.4); Platelet Count 307 K/mcL (140-400); Red Blood Count 4.93 M/mcL (3.82-4.97); Red Cell Distribution Width 19.9 % (11.5-14.5)
[2018-02-20 05:29] LABS: INR 7.6; Prothrombin Time 86.3 Seconds (9.4-12.1)
[2018-02-20 05:42] LABS: BUN/Creatinine Ratio 14 (6-26); Blood Urea Nitrogen 11 mg/dL (6-20); Carbon Dioxide 25 mEq/L (23-29); Chloride 109 mEq/L (98-107); Glucose 75 mg/dL (70-105); Osmolality,Calculated 282 (280-300); Potassium 3.6 mEq/L (3.5-5.1); Sodium 137 mEq/L (136-145); eGFR For Non-African Americans > 60 (> 60)
[2018-02-20] MEDS: *HR* OxyCODONE Immed Rel 5 MG TABLET PO PRN ×2 (06:08→12:05)
[2018-02-20] MEDS: Pantoprazole 40 MG VIAL IVP SCH ×2 (06:44→08:53)
[2018-02-20] MEDS: Gabapentin 300 MG CAPSULE PO SCH ×2 (08:53→13:57)
[2018-02-20] MEDS ORDERED: Loratadine 10 MG TABLET PO SCH (09:00)
[2018-02-20] MEDS ORDERED: Ondansetron 4 MG/2 ML VIAL IVP ONE (09:20)
[2018-02-20 11:55] VITALS: BP 106/59
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
--- NOTE | 2018-02-21 17:36 | Electrocardiograph Report ---
[place] [id number] Test Date: 2018-02-19 Pat Name: Martha Gallagher Department: 103 Room: 2A34 Gender: F Research Biostatistician: SARAI : [id number] Requested By: Ronald Marinelli Order Number: [id number] Reading MD: Marianna Matson Measurements Intervals [place] Rate: 79 P: 66 UT: 141 QRS: -18 QRSD: 93 T: 109 QT: 381 QTc: 416 Interpretive Statements SINUS RHYTHM LEFT VENTRICULAR HYPERTROPHY AND ST-T CHANGE [VOLTAGE CRITERIA PLUS ST/T ABNORMALITY] Electronically Signed On 02-21-2018 17:34:18 EDT by Marianna Matson
== END 2018-02-20 14:45 | disposition home or self-care (01) ==
LOC: 2ANU 15:13 → EMEROO 15:13 → SUATTDRO 20:29 → 2ANU 21:07
PROVIDERS: ADMIT Family Medicine; ATTEND Internal Medicine

== ENCOUNTER 2020-06-12 10:31 | Observation (INO) ==
[2020-06-12] MEDS ORDERED: Vancomycin 1,750 MG in 0.9 % Sodium Chloride 250 ML IVPB ONE (10:52)
[2020-06-12] MEDS ORDERED: Piperacillin/Tazobactam 3.375 GM in 0.9 % Sodium Chloride Mini Bag 100 ML IVPB ONE (10:52)
[2020-06-12] MEDS ORDERED: Ondansetron 4 MG/2 ML VIAL IVP ONE (10:53)
[2020-06-12] MEDS ORDERED: Isovue-370 500 ML BOTTLE IVP ONE (10:53)
[2020-06-12] MEDS ORDERED: Vancomycin 1,750 MG/517.5 ML IV.SOLN IVPB ONE (10:55)
[2020-06-12 11:18] LABS: Basophils % 0.4 %; Eosinophils # 0.1 K/mcL (0.0-0.6); Eosinophils % 1.4 %; Hematocrit 45.2 % (35.3-44.9); Hemoglobin 14.1 g/dL (11.5-15.4); Immature Granulocytes % 0.3 % (0-4); Lymphocytes # 1.7 K/mcL (0.6-4.6); Lymphocytes % 18.4 %; Mean Corpuscular HGB Conc 31.2 g/dL (31.6-35.5); Mean Corpuscular Hemoglobin 28.8 pg (28.0-33.3); Mean Corpuscular Volume 92.2 fL (83.0-100.0); Mean Platelet Volume 9.4 fL (9.4-12.4); Monocytes # 0.6 K/mcL (0.0-1.3); Monocytes % 5.9 %; Neutrophils # 6.9 K/mcL (1.6-8.9); Platelet Count 297 K/mcL (140-400); Red Cell Distribution Width 15.7 % (11.5-14.5); Segmented Neutrophils % 73.6 %; White Blood Count 9.3 K/mcL (4.3-11.1)
[2020-06-12 11:33] LABS: BUN/Creatinine Ratio 17 (6-26); Blood Urea Nitrogen 12 mg/dL (6-20); Calcium 10.4 mg/dL (8.6-10.3); Carbon Dioxide 24 mEq/L (23-29); Chloride 107 mEq/L (98-107); Glucose 108 mg/dL (70-105); Osmolality,Calculated 284 (280-300); Potassium 4.3 mEq/L (3.5-5.1); Sodium 137 mEq/L (136-145); eGFR For African Americans > 60 (> 60); eGFR For Non-African Americans > 60 (> 60)
[2020-06-12 12:00] LABS: INR 1.7; Prothrombin Time 19.3 Seconds (9.4-12.1)
[2020-06-12] MEDS ORDERED: Naloxone 0.4 MG/ML INJ IVP PRN (13:23)
[2020-06-12] MEDS ORDERED: *HR* Heparin 5,000 UNIT/ML VIAL IVP ONE (13:40)
[2020-06-12] MEDS ORDERED: *HR* Heparin 5,000 UNIT/ML VIAL IVP PRN ×2 (13:40)
[2020-06-12] MEDS ORDERED: 0.9 % Sodium Chloride 1,000 ML IVC SCH (13:45)
[2020-06-12] MEDS ORDERED: Vancomycin 1,750 MG in 0.9 % Sodium Chloride 250 ML IVPB SCH (14:00)
[2020-06-12 14:16] LABS: Hematocrit 41.8 % (35.3-44.9); Mean Corpuscular HGB Conc 31.1 g/dL (31.6-35.5); Mean Corpuscular Hemoglobin 28.1 pg (28.0-33.3); Mean Corpuscular Volume 90.3 fL (83.0-100.0); Mean Platelet Volume 9.3 fL (9.4-12.4); Platelet Count 320 K/mcL (140-400); Red Blood Count 4.63 M/mcL (3.82-4.97); Red Cell Distribution Width 15.7 % (11.5-14.5); White Blood Count 8.9 K/mcL (4.3-11.1)
[2020-06-12 14:30] LABS: Heparin anti-factor XA UFH < 0.04 IU/mL (0.30-0.70)
[2020-06-12 14:31] LABS: INR 1.9; Prothrombin Time 21.3 Seconds (9.4-12.1)
[2020-06-12] MEDS ORDERED: Acetaminophen 325 MG TABLET PO PRN (14:53)
[2020-06-12] MEDS: Gabapentin 300 MG CAPSULE PO SCH ×2 (15:40→19:53)
[2020-06-12] MEDS: Nicotine 21 MG PATCH.TD24 TD SCH (15:40)
[2020-06-12] MEDS: *HR* HYDROcodone/Acet 5/325 mg TABLET PO PRN ×2 (15:47→23:32)
[2020-06-12 15:57] LABS: C-Reactive Protein 8 mg/L (Less than 10)
[2020-06-12] MEDS ORDERED: Warfarin perPT PO PRN (18:00)
[2020-06-12] MEDS: Heparin 25,000UNIT/250ML 1/2NS 25,000 UNIT/250 ML IV.SOLN IVC SCH (18:10)
[2020-06-12] MEDS ORDERED: Acetaminophen IV 500 MG/50 ML INFUS..BTL IVPB ONE (18:16)
[2020-06-12] MEDS: Piperacillin/Tazobactam 3.375 GM in 0.9 % Sodium Chloride Mini Bag 100 ML IVPB SCH (19:53)
[2020-06-12] MEDS: clonazePAM 0.5 MG TABLET PO SCH (23:33)
[2020-06-12] MEDS: Ondansetron 4 MG/2 ML VIAL IVP PRN (23:33)
[2020-06-13] MEDS: Vancomycin 1,500 MG/265 ML IV.SOLN IVPB SCH ×2 (00:45→12:38)
[2020-06-13 01:01] LABS: INR 1.9; Prothrombin Time 21.5 Seconds (9.4-12.1)
[2020-06-13 01:17] LABS: BUN/Creatinine Ratio 17 (6-26); Blood Urea Nitrogen 16 mg/dL (6-20); Calcium 9.6 mg/dL (8.6-10.3); Carbon Dioxide 20 mEq/L (23-29); Chloride 107 mEq/L (98-107); Glucose 203 mg/dL (70-105); Magnesium 1.9 mg/dL (1.6-2.6); Osmolality,Calculated 287 (280-300); Phosphorous 3.7 mg/dL (2.7-4.5); Potassium 3.5 mEq/L (3.5-5.1); Sodium 135 mEq/L (136-145); eGFR For African Americans > 60 (> 60); eGFR For Non-African Americans > 60 (> 60)
[2020-06-13] MEDS: Piperacillin/Tazobactam 3.375 GM in 0.9 % Sodium Chloride Mini Bag 100 ML IVPB SCH ×3 (03:48→19:59)
[2020-06-13] MEDS: *HR* HYDROcodone/Acet 5/325 mg TABLET PO PRN ×3 (03:48→12:28)
[2020-06-13] MEDS ORDERED: *HR* Dextrose 50 % in Water (Vial) 50 ML VIAL IVP PRN (07:36)
[2020-06-13] MEDS ORDERED: D5% in Water 1,000 ML IVC PRN (07:36)
[2020-06-13] MEDS ORDERED: Dextrose Gel 15 GM/37.5 ML TUBE PO PRN ×2 (07:36)
[2020-06-13] MEDS: Nicotine 21 MG PATCH.TD24 TD SCH (08:17)
[2020-06-13] MEDS: Gabapentin 300 MG CAPSULE PO SCH ×2 (08:18→11:55)
[2020-06-13] MEDS: clonazePAM 0.5 MG TABLET PO SCH ×3 (08:18→20:00)
[2020-06-13] MEDS: Loratadine 10 MG TABLET PO SCH (08:19)
[2020-06-13 08:21] LABS: Basophils % 0.6 %; Eosinophils # 0.1 K/mcL (0.0-0.6); Eosinophils % 1.9 %; Hematocrit 40.2 % (35.3-44.9); Hemoglobin 12.2 g/dL (11.5-15.4); Immature Granulocytes % 0.2 % (0-4); Lymphocytes # 1.9 K/mcL (0.6-4.6); Lymphocytes % 29.7 %; Mean Corpuscular HGB Conc 30.3 g/dL (31.6-35.5); Mean Corpuscular Hemoglobin 28.2 pg (28.0-33.3); Mean Corpuscular Volume 92.8 fL (83.0-100.0); Mean Platelet Volume 9.4 fL (9.4-12.4); Monocytes # 0.5 K/mcL (0.0-1.3); Monocytes % 7.8 %; Neutrophils # 3.8 K/mcL (1.6-8.9); Platelet Count 284 K/mcL (140-400); Red Blood Count 4.33 M/mcL (3.82-4.97); Red Cell Distribution Width 15.7 % (11.5-14.5); Segmented Neutrophils % 59.8 %; White Blood Count 6.3 K/mcL (4.3-11.1)
[2020-06-13] MEDS: Ondansetron 4 MG/2 ML VIAL IVP PRN ×4 (08:21→22:47)
[2020-06-13] MEDS: Heparin 25,000UNIT/250ML 1/2NS 25,000 UNIT/250 ML IV.SOLN IVC SCH (10:33)
[2020-06-13] MEDS: Insulin LISPRO 300 UNITS/3 ML VIAL SQ SCH ×2 (11:49→16:58)
[2020-06-13] MEDS: *HR* OxyCODONE/APAP 5/325 TABLET PO PRN ×2 (17:10→23:10)
[2020-06-13] MEDS: Gabapentin 400 MG CAPSULE PO SCH ×2 (17:11→19:59)
[2020-06-13] MEDS ORDERED: *HR* Warfarin 7.5 MG TABLET PO ONE (18:00)
[2020-06-13] MEDS ORDERED: tiZANidine 4 MG TABLET PO PRN (18:01)
[2020-06-13] MEDS ORDERED: Insulin LISPRO 300 UNITS/3 ML VIAL SQ SCH (21:00)
[2020-06-14] MEDS: Vancomycin 1,500 MG/265 ML IV.SOLN IVPB SCH (00:35)
[2020-06-14] MEDS: Heparin 25,000UNIT/250ML 1/2NS 25,000 UNIT/250 ML IV.SOLN IVC SCH (03:01)
[2020-06-14] MEDS: Piperacillin/Tazobactam 3.375 GM in 0.9 % Sodium Chloride Mini Bag 100 ML IVPB SCH (04:54)
[2020-06-14 05:12] LABS: Basophils % 0.5 %; Eosinophils # 0.1 K/mcL (0.0-0.6); Hematocrit 37.4 % (35.3-44.9); Hemoglobin 11.7 g/dL (11.5-15.4); Immature Granulocytes % 0.3 % (0-4); Lymphocytes # 1.7 K/mcL (0.6-4.6); Lymphocytes % 27.6 %; Mean Corpuscular HGB Conc 31.3 g/dL (31.6-35.5); Mean Corpuscular Volume 92.6 fL (83.0-100.0); Mean Platelet Volume 9.4 fL (9.4-12.4); Monocytes # 0.5 K/mcL (0.0-1.3); Monocytes % 8.6 %; Neutrophils # 3.7 K/mcL (1.6-8.9); Platelet Count 272 K/mcL (140-400); Red Blood Count 4.04 M/mcL (3.82-4.97); Red Cell Distribution Width 15.3 % (11.5-14.5); White Blood Count 6.1 K/mcL (4.3-11.1)
[2020-06-14 05:28] LABS: INR 1.6; Prothrombin Time 18.1 Seconds (9.4-12.1)
[2020-06-14 05:31] LABS: BUN/Creatinine Ratio 20 (6-26); Blood Urea Nitrogen 16 mg/dL (6-20); Calcium 9.8 mg/dL (8.6-10.3); Carbon Dioxide 23 mEq/L (23-29); Chloride 110 mEq/L (98-107); Glucose 98 mg/dL (70-105); Osmolality,Calculated 287 (280-300); Potassium 4.1 mEq/L (3.5-5.1); Sodium 138 mEq/L (136-145); eGFR For African Americans > 60 (> 60); eGFR For Non-African Americans > 60 (> 60)
[2020-06-14] MEDS: *HR* OxyCODONE/APAP 5/325 TABLET PO PRN (08:52)
[2020-06-14] MEDS: Nicotine 21 MG PATCH.TD24 TD SCH (08:53)
[2020-06-14] MEDS: Insulin LISPRO 300 UNITS/3 ML VIAL SQ SCH (08:53)
[2020-06-14] MEDS: Gabapentin 400 MG CAPSULE PO SCH (08:54)
[2020-06-14] MEDS: Loratadine 10 MG TABLET PO SCH (08:55)
[2020-06-14] MEDS: clonazePAM 0.5 MG TABLET PO SCH ×2 (08:55)
[2020-06-14] MEDS: Ondansetron 4 MG/2 ML VIAL IVP PRN (08:56)
[2020-06-14 08:57] LABS: Estimated Average Glucose 134 mg/dl
[2020-06-14] MEDS ORDERED: ARIPiprazole 10 MG TABLET PO SCH (09:00)
[2020-06-14] MEDS ORDERED: FLUoxetine 20 MG CAPSULE PO SCH (09:00)
[2020-06-14] MEDS ORDERED: *HR* Enoxaparin 100 MG/ML SYRINGE SQ SCH (09:15)
[2020-06-14 10:27] VITALS: BP 145/76
[2020-06-14] MEDS ORDERED: FLU Vac QV 20-21 (6Month+)/PF 0.5 ML SYRINGE IM ONE (11:45)
[2020-06-14] MEDS ORDERED: *HR* Warfarin 10 MG TABLET PO ONE (18:00)
== END 2020-06-14 12:16 | disposition home or self-care (01) ==
LOC: EMEROOARM 10:31 → 3ANU 10:31 → SUATTDRO 14:24 → 3ANU 14:58
PROVIDERS: ADMIT Student in an Organized Health Care Education/Training Program; ATTEND Pharmacist

== ENCOUNTER 2020-06-30 14:56 | Observation (INO) ==
[2020-06-30] MEDS ORDERED: Ondansetron ODT 4 MG TAB.RAPDIS SL ONE (15:19)
[2020-06-30 15:26] LABS: Bilirubin,Urine Negative (Negative); Blood,Urine Negative (Negative); Clarity,Urine Clear (Clear); Color,Urine Colorless (Yellow); Glucose,Urine (UA) Normal (Normal); Ketones,Urine Negative (Negative); Leukocyte Esterase,Urine Negative (Negative); Nitrite,Urine Negative (Negative); PH,Urine 6.5 pH Units (5.0-8.0); Protein,Urine Negative (Neg-Trace); Specific Gravity,Urine < 1.005 (1.010-1.025); Urobilinogen,Urine Normal (Normal)
[2020-06-30 15:37] LABS: Amphetamine Screen,Urine Negative ng/mL (Cutoff=1000); Barbiturate Screen,Urine Negative ng/mL (Cutoff=200); Benzodiazepines Screen,Urine Negative ng/mL (Cutoff=200); Cannabinoid Screen,Urine Negative ng/mL (Cutoff = 50); Cocaine Screen,Urine Negative ng/mL (Cutoff= 300); Opiate Screen,Urine Negative ng/mL (Cutoff=300); Phencyclidine Screen,Urine Negative ng/mL (Cutoff=25)
[2020-06-30 15:39] LABS: Basophils # 0.1 K/mcL (0.0-0.2); Basophils % 0.9 %; Eosinophils # 0.3 K/mcL (0.0-0.6); Eosinophils % 3.7 %; Hematocrit 42.7 % (35.3-44.9); Hemoglobin 13.6 g/dL (11.5-15.4); Immature Granulocytes % 0.4 % (0-4); Lymphocytes # 3.5 K/mcL (0.6-4.6); Lymphocytes % 41.9 %; Mean Corpuscular HGB Conc 31.9 g/dL (31.6-35.5); Mean Corpuscular Hemoglobin 28.8 pg (28.0-33.3); Mean Corpuscular Volume 90.3 fL (83.0-100.0); Monocytes # 0.5 K/mcL (0.0-1.3); Monocytes % 5.6 %; Platelet Count 362 K/mcL (140-400); Red Blood Count 4.73 M/mcL (3.82-4.97); Red Cell Distribution Width 16.2 % (11.5-14.5); Segmented Neutrophils % 47.5 %; White Blood Count 8.4 K/mcL (4.3-11.1)
[2020-06-30 15:46] LABS: INR 1.6; Prothrombin Time 17.8 Seconds (9.4-12.1)
[2020-06-30 15:49] LABS: Activated Partial Thrombo Time 34.7 Seconds (26.0-36.0)
[2020-06-30 15:58] LABS: Acetaminophen < 10 mcg/mL (10-20); Alanine Aminotransferase 16 Units/L (7-52); Albumin 4.4 g/dL (3.5-5.7); Albumin/Globulin Ratio 1.3 (1.1-2.2); Alkaline Phosphatase 116 Units/L (34-104); Aspartate Amino Transferase 22 Units/L (13-39); BUN/Creatinine Ratio 14 (6-26); Bilirubin,Total 0.4 mg/dL (0.3-1.0); Blood Urea Nitrogen 10 mg/dL (6-20); Calcium 10.2 mg/dL (8.6-10.3); Carbon Dioxide 25 mEq/L (23-29); Chloride 109 mEq/L (98-107); Ethanol 256 mg/dL (Less than 10); Globulin 3.4 g/dL (2.4-3.5); Glucose 86 mg/dL (70-105); Osmolality,Calculated 296 (280-300); Potassium 4.3 mEq/L (3.5-5.1); Salicylate < 2.5 mg/dL (15.0-30.0); Sodium 144 mEq/L (136-145); Total Protein 7.8 g/dL (6.4-8.9); eGFR For African Americans > 60 (> 60); eGFR For Non-African Americans > 60 (> 60)
[2020-06-30] MEDS ORDERED: Nicotine 14 MG PATCH.TD24 TD ONE (16:14)
[2020-06-30] MEDS ORDERED: *HR* LORazepam 1 MG TABLET PO ONE ×2 (16:34→19:41)
[2020-06-30] MEDS ORDERED: Naloxone 0.4 MG/ML INJ IVP PRN (21:41)
[2020-06-30] MEDS ORDERED: Ondansetron ODT 4 MG TAB.RAPDIS SL PRN (21:41)
[2020-06-30] MEDS ORDERED: Dextrose Gel 15 GM/37.5 ML TUBE PO PRN ×2 (21:44)
[2020-06-30] MEDS ORDERED: D5% in Water 1,000 ML IVC PRN (21:44)
[2020-06-30] MEDS ORDERED: *HR* Dextrose 50 % in Water (Vial) 50 ML VIAL IVP PRN (21:44)
[2020-06-30] MEDS ORDERED: *HR* LORazepam 2 MG/ML VIAL IVP PRN ×3 (21:44→21:46)
[2020-06-30] MEDS ORDERED: *HR* Heparin 5,000 UNIT/ML VIAL IVP PRN ×2 (21:47)
[2020-06-30] MEDS ORDERED: hydrOXYzine pamoate 25 MG CAPSULE PO PRN (21:48)
[2020-06-30] MEDS ORDERED: tiZANidine 4 MG TABLET PO PRN (21:48)
[2020-06-30 22:21] LABS: Heparin anti-factor XA UFH 0.05 IU/mL (0.30-0.70)
[2020-06-30 22:22] LABS: INR 1.6; Prothrombin Time 18.4 Seconds (9.4-12.1)
[2020-06-30] MEDS ORDERED: *HR* Labetalol 20 MG/4 ML SYRINGE IVP PRN (22:26)
[2020-07-01] MEDS: Heparin 25,000UNIT/250ML 1/2NS 25,000 UNIT/250 ML IV.SOLN IVC SCH ×2 (00:05→17:41)
[2020-07-01] MEDS: Gabapentin 400 MG CAPSULE PO SCH ×5 (03:14→20:35)
[2020-07-01] MEDS: Ipratropium/Albuterol Neb 3 ML IH PRN ×2 (03:44→09:32)
[2020-07-01 06:32] LABS: Basophils # 0.1 K/mcL (0.0-0.2); Basophils % 0.9 %; Eosinophils # 0.3 K/mcL (0.0-0.6); Eosinophils % 4.6 %; Hematocrit 40.7 % (35.3-44.9); Hemoglobin 12.9 g/dL (11.5-15.4); Immature Granulocytes % 0.1 % (0-4); Lymphocytes # 2.1 K/mcL (0.6-4.6); Mean Corpuscular HGB Conc 31.7 g/dL (31.6-35.5); Mean Corpuscular Hemoglobin 29.1 pg (28.0-33.3); Mean Corpuscular Volume 91.9 fL (83.0-100.0); Mean Platelet Volume 9.3 fL (9.4-12.4); Monocytes # 0.5 K/mcL (0.0-1.3); Neutrophils # 3.8 K/mcL (1.6-8.9); Platelet Count 282 K/mcL (140-400); Red Blood Count 4.43 M/mcL (3.82-4.97); Red Cell Distribution Width 15.9 % (11.5-14.5); Segmented Neutrophils % 56.4 %; White Blood Count 6.7 K/mcL (4.3-11.1)
[2020-07-01 06:38] LABS: INR 1.7; Prothrombin Time 19.3 Seconds (9.4-12.1)
[2020-07-01 06:41] LABS: BUN/Creatinine Ratio 16 (6-26); Blood Urea Nitrogen 12 mg/dL (6-20); Calcium 9.7 mg/dL (8.6-10.3); Carbon Dioxide 26 mEq/L (23-29); Chloride 104 mEq/L (98-107); Glucose 92 mg/dL (70-105); Magnesium 1.9 mg/dL (1.6-2.6); Osmolality,Calculated 283 (280-300); Phosphorous 3.5 mg/dL (2.7-4.5); Potassium 3.8 mEq/L (3.5-5.1); Sodium 137 mEq/L (136-145); eGFR For African Americans > 60 (> 60); eGFR For Non-African Americans > 60 (> 60)
[2020-07-01 06:43] LABS: Activated Partial Thrombo Time 61.9 Seconds (26.0-36.0)
[2020-07-01] MEDS: ARIPiprazole 10 MG TABLET PO SCH (08:23)
[2020-07-01] MEDS: Insulin LISPRO 300 UNITS/3 ML VIAL SQ SCH ×3 (08:25→16:51)
[2020-07-01] MEDS: *HR* HYDROcodone/Acet 5/325 mg TABLET PO PRN ×2 (08:42→14:50)
[2020-07-01] MEDS ORDERED: FLUoxetine 20 MG CAPSULE PO SCH (09:00)
[2020-07-01] MEDS ORDERED: Gabapentin 400 MG CAPSULE PO SCH (09:00)
[2020-07-01] MEDS ORDERED: Nicotine 14 MG PATCH.TD24 TD SCH (11:15)
[2020-07-01] MEDS ORDERED: Albuterol 2.5 MG/3 ML NEBULIZER IH PRN (14:11)
[2020-07-01] MEDS ORDERED: Nicotine 21 MG PATCH.TD24 TD SCH (17:30)
[2020-07-01] MEDS ORDERED: Thiamine (B-1) 100 MG, Folic Acid 1 MG, MVI, adult with vitamin K 10 ML in 0.9 % Sodi... IVPB SCH (18:00)
[2020-07-01] MEDS ORDERED: *HR* Warfarin 4 MG TABLET PO ONE (18:00)
[2020-07-01] MEDS ORDERED: Warfarin perPT PO PRN (18:00)
[2020-07-01] MEDS ORDERED: *HR* Warfarin 10 MG TABLET PO SCH (18:00)
[2020-07-01] MEDS: clonazePAM 0.5 MG TABLET PO PRN (18:21)
[2020-07-01] MEDS: Ondansetron 4 MG/2 ML VIAL IVP PRN (19:45)
[2020-07-02] MEDS: *HR* HYDROcodone/Acet 5/325 mg TABLET PO PRN (00:34)
[2020-07-02] MEDS: clonazePAM 0.5 MG TABLET PO PRN ×2 (00:34→07:54)
[2020-07-02] MEDS: Ipratropium/Albuterol Neb 3 ML IH PRN (00:48)
[2020-07-02] MEDS: Ondansetron 4 MG/2 ML VIAL IVP PRN (05:24)
[2020-07-02 06:06] LABS: INR 1.4; Prothrombin Time 16.1 Seconds (9.4-12.1)
[2020-07-02 07:37] VITALS: BP 154/77
[2020-07-02] MEDS: Insulin LISPRO 300 UNITS/3 ML VIAL SQ SCH (07:41)
[2020-07-02] MEDS: Gabapentin 400 MG CAPSULE PO SCH (07:55)
[2020-07-02] MEDS: ARIPiprazole 10 MG TABLET PO SCH (07:55)
[2020-07-02] MEDS ORDERED: Loratadine 10 MG TABLET PO SCH (09:00)
== END 2020-07-02 08:18 | disposition left against medical advice (07) ==
LOC: 3BNU 14:56 → EMEROOARM 14:56 → SUATTDRO 22:13 → 3BNU 23:10
PROVIDERS: ADMIT Internal Medicine; ATTEND Internal Medicine

== ENCOUNTER 2021-03-31 16:35 | Inpatient (IN) ==
[2021-03-31] MEDS ORDERED: Nitroglycerin 1 INCH/GM PACKET TP ONE (17:16)
[2021-03-31 18:18] LABS: Basophils # 0.1 K/mcL (0.0-0.2); Basophils % 0.3 %; Eosinophils # 0.1 K/mcL (0.0-0.6); Eosinophils % 0.7 %; Hematocrit 48.3 % (35.3-44.9); Hemoglobin 15.4 g/dL (11.5-15.4); Immature Granulocytes % 0.6 % (0-4); Lymphocytes # 1.8 K/mcL (0.6-4.6); Lymphocytes % 9.5 %; Mean Corpuscular HGB Conc 31.9 g/dL (31.6-35.5); Mean Corpuscular Hemoglobin 27.5 pg (28.0-33.3); Mean Corpuscular Volume 86.1 fL (83.0-100.0); Mean Platelet Volume 9.4 fL (9.4-12.4); Monocytes # 1.1 K/mcL (0.0-1.3); Neutrophils # 15.5 K/mcL (1.6-8.9); Platelet Count 325 K/mcL (140-400); Red Blood Count 5.61 M/mcL (3.82-4.97); Red Cell Distribution Width 14.9 % (11.5-14.5); Segmented Neutrophils % 82.9 %; White Blood Count 18.8 K/mcL (4.3-11.1)
[2021-03-31 18:38] LABS: BUN/Creatinine Ratio 23 (6-26); Blood Urea Nitrogen 15 mg/dL (6-20); Calcium 10.1 mg/dL (8.6-10.3); Carbon Dioxide 22 mEq/L (23-29); Chloride 104 mEq/L (98-107); Glucose 130 mg/dL (70-105); Lipase 14 Units/L (11-82); Osmolality,Calculated 283 (280-300); Potassium 3.4 mEq/L (3.5-5.1); Sodium 135 mEq/L (136-145); eGFR For African Americans > 60 (> 60); eGFR For Non-African Americans > 60 (> 60)
[2021-03-31 18:39] LABS: Troponin I < 0.03 ng/mL (< 0.04)
[2021-03-31] MEDS ORDERED: Isovue-370 500 ML BOTTLE IVP ONE (18:53)
[2021-03-31] MEDS ORDERED: Ondansetron 4 MG/2 ML VIAL IVP ONE (20:18)
[2021-03-31] MEDS ORDERED: Acetaminophen 325 MG TABLET PO ONE (20:50)
[2021-03-31] MEDS ORDERED: Vancomycin 1,500 MG/265 ML IV.SOLN IVPB ONE (21:06)
[2021-03-31] MEDS ORDERED: Piperacillin/Tazobactam 3.375 GM in Water for inj. (sterile) 20 ML IVP ONE (21:06)
[2021-03-31] MEDS ORDERED: 0.9 % Sodium Chloride 1,000 ML IV ONE (21:40)
[2021-03-31 21:42] LABS: Troponin I < 0.03 ng/mL (< 0.04)
[2021-03-31] MEDS ORDERED: Ondansetron 4 MG/2 ML VIAL IVP PRN ×2 (21:44→23:02)
[2021-03-31] MEDS ORDERED: Naloxone 0.4 MG/ML INJ IVP PRN ×2 (21:44→23:02)
[2021-03-31] MEDS ORDERED: *HR* Promethazine 25 MG/ML VIAL IM PRN (21:44)
[2021-03-31] MEDS ORDERED: 0.9 % Sodium Chloride 250 ML IVC SCH (21:45)
[2021-03-31] MEDS ORDERED: Pantoprazole 40 MG VIAL IVP ONE (21:47)
[2021-03-31] MEDS ORDERED: D5% in Water 1,000 ML IVC PRN (21:49)
[2021-03-31] MEDS ORDERED: *HR* Dextrose 50 % in Water (Vial) 50 ML VIAL IVP PRN (21:49)
[2021-03-31] MEDS ORDERED: Dextrose Gel 15 GM/37.5 ML TUBE PO PRN ×2 (21:49)
[2021-03-31] MEDS ORDERED: Ringers Solution, Lactated 1,000 ML IVC SCH (22:00)
[2021-03-31 22:39] LABS: INR 2.8; Prothrombin Time 31.8 Seconds (9.4-12.1)
[2021-03-31] MEDS ORDERED: Nitroglycerin 0.4 MG TAB.SUBL SL PRN (23:02)
[2021-03-31] MEDS ORDERED: Albuterol 2.5 MG/3 ML NEBULIZER IH PRN (23:02)
[2021-03-31] MEDS ORDERED: *HR* HYDROMORPHONE 2 MG/ML VIAL ONE (23:06)
[2021-03-31] MEDS ORDERED: Lidocaine -MPF 2% 2 ML VIAL ONE (23:06)
[2021-03-31] MEDS ORDERED: *HR* Propofol 200 MG/20 ML VIAL IVP ONE (23:06)
[2021-03-31] MEDS ORDERED: *HR* FentaNYL (PF) 100 MCG/2 ML VIAL ONE (23:06)
[2021-03-31] MEDS ORDERED: *HR* Succinylcholine 200 MG/10 ML VIAL IVP ONE (23:06)
[2021-03-31] MEDS ORDERED: *HR* Rocuronium Bromide 50 MG/5 ML VIAL ONE (23:06)
[2021-03-31] MEDS ORDERED: Neostigmine Methylsulfate 3 MG/3 ML SYRINGE ONE (23:06)
[2021-03-31] MEDS ORDERED: Ondansetron 4 MG/2 ML VIAL ONE (23:06)
[2021-04-01] MEDS ORDERED: Insulin LISPRO 300 UNITS/3 ML VIAL SUBQ SCH
[2021-04-01] MEDS ORDERED: Piperacillin/Tazobactam 3.375 GM in 0.9 % Sodium Chloride Mini Bag 100 ML IVPB SCH
[2021-04-01] MEDS: *HR* HYDROmorphone (PF) 1 MG/ML SYRINGE IVP PRN ×4 (01:26→01:41)
[2021-04-01] MEDS: *HR* FentaNYL (PF) 100 MCG/2 ML VIAL IVP PRN ×5 (01:50→03:07)
[2021-04-01] MEDS ORDERED: Pantoprazole 40 MG VIAL IVP ONE (03:16)
[2021-04-01] MEDS ORDERED: D5% in Water 1,000 ML IVC PRN (03:16)
[2021-04-01] MEDS ORDERED: Naloxone 0.4 MG/ML INJ IVP PRN ×2 (03:16)
[2021-04-01] MEDS ORDERED: Ondansetron 4 MG/2 ML VIAL IVP PRN (03:16)
[2021-04-01] MEDS ORDERED: 0.9 % Sodium Chloride 1,000 ML IV ONE (03:16)
[2021-04-01] MEDS ORDERED: Albuterol 2.5 MG/3 ML NEBULIZER IH PRN (03:16)
[2021-04-01] MEDS ORDERED: Dextrose Gel 15 GM/37.5 ML TUBE PO PRN ×2 (03:16)
[2021-04-01] MEDS ORDERED: *HR* Dextrose 50 % in Water (Vial) 50 ML VIAL IVP PRN (03:16)
[2021-04-01] MEDS ORDERED: Nitroglycerin 0.4 MG TAB.SUBL SL PRN (03:16)
[2021-04-01] MEDS ORDERED: *HR* FentaNYL (PF) 100 MCG/2 ML VIAL IVP PRN (03:16)
[2021-04-01] MEDS ORDERED: 0.9 % Sodium Chloride 250 ML IVC SCH (03:16)
[2021-04-01] MEDS: Ringers Solution, Lactated 1,000 ML IVC SCH ×3 (03:34→18:40)
[2021-04-01 04:46] LABS: Basophils % 0.2 %; Hematocrit 43.9 % (35.3-44.9); Hemoglobin 14.1 g/dL (11.5-15.4); Immature Granulocytes % 0.8 % (0-4); Lymphocytes # 0.6 K/mcL (0.6-4.6); Lymphocytes % 3.2 %; Mean Corpuscular HGB Conc 32.1 g/dL (31.6-35.5); Mean Corpuscular Hemoglobin 28.2 pg (28.0-33.3); Mean Corpuscular Volume 87.8 fL (83.0-100.0); Mean Platelet Volume 9.7 fL (9.4-12.4); Monocytes # 0.9 K/mcL (0.0-1.3); Monocytes % 4.7 %; Neutrophils # 17.7 K/mcL (1.6-8.9); Platelet Count 308 K/mcL (140-400); Segmented Neutrophils % 91.1 %; White Blood Count 19.4 K/mcL (4.3-11.1)
[2021-04-01 05:06] LABS: INR 2.6; Prothrombin Time 29.6 Seconds (9.4-12.1)
[2021-04-01 05:11] LABS: Alanine Aminotransferase 10 Units/L (7-52); Albumin 3.5 g/dL (3.5-5.7); Alkaline Phosphatase 75 Units/L (34-104); Aspartate Amino Transferase 18 Units/L (13-39); BUN/Creatinine Ratio 24 (6-26); Bilirubin,Total 0.7 mg/dL (0.3-1.0); Blood Urea Nitrogen 18 mg/dL (6-20); Calcium 9.7 mg/dL (8.6-10.3); Carbon Dioxide 21 mEq/L (23-29); Chloride 105 mEq/L (98-107); Globulin 3.5 g/dL (2.4-3.5); Glucose 169 mg/dL (70-105); Magnesium 1.8 mg/dL (1.6-2.6); Osmolality,Calculated 286 (280-300); Phosphorous 3.1 mg/dL (2.7-4.5); Potassium 3.9 mEq/L (3.5-5.1); Sodium 135 mEq/L (136-145); eGFR For African Americans > 60 (> 60); eGFR For Non-African Americans > 60 (> 60)
[2021-04-01] MEDS: Insulin LISPRO 300 UNITS/3 ML VIAL SUBQ SCH ×3 (06:37→18:57)
[2021-04-01] MEDS ORDERED: Lidocaine -MPF 1% 5 ML AMPUL INFILT ONE (07:57)
[2021-04-01] MEDS ORDERED: Chloraseptic Spray 177 ML BOTTLE MM PRN (07:59)
[2021-04-01] MEDS ORDERED: Saliva Stimulant 44.3ml BOTTLE PO PRN (07:59)
[2021-04-01] MEDS: Piperacillin/Tazobactam 3.375 GM in 0.9 % Sodium Chloride Mini Bag 100 ML IVPB SCH ×2 (09:00→16:36)
[2021-04-01 09:01] LABS: Triglycerides 144 mg/dL (< 150)
[2021-04-01] MEDS: Acetaminophen IV 1,000 MG/100 ML BAG IVPB SCH ×2 (09:33→16:27)
[2021-04-01] MEDS: Ondansetron 4 MG/2 ML VIAL IVP PRN ×2 (09:34→18:38)
[2021-04-01] MEDS ORDERED: D10% in Water 500 ML IVC PRN (11:38)
[2021-04-01] MEDS ORDERED: Ketorolac 15 MG/ML VIAL IVP SCH (12:00)
[2021-04-01] MEDS ORDERED: *HR* Heparin 5,000 UNIT/ML VIAL IVP PRN ×2 (13:06)
[2021-04-01] MEDS ORDERED: Heparin 25,000UNIT/250ML 1/2NS 25,000 UNIT/250 ML IV.SOLN IVC SCH (13:15)
[2021-04-01 13:58] LABS: Hematocrit 34.4 % (35.3-44.9); Mean Corpuscular HGB Conc 31.1 g/dL (31.6-35.5); Mean Corpuscular Hemoglobin 27.5 pg (28.0-33.3); Mean Corpuscular Volume 88.4 fL (83.0-100.0); Mean Platelet Volume 10.3 fL (9.4-12.4); Platelet Count 420 K/mcL (140-400); Red Blood Count 3.89 M/mcL (3.82-4.97); Red Cell Distribution Width 15.2 % (11.5-14.5)
[2021-04-01 13:59] LABS: Hemoglobin 10.7 g/dL (11.5-15.4)
[2021-04-01 14:01] LABS: White Blood Count 30.4 K/mcL (4.3-11.1)
[2021-04-01 14:08] LABS: Heparin anti-factor XA UFH < 0.04 IU/mL (0.30-0.70); INR 3.7; Prothrombin Time 41.3 Seconds (9.4-12.1)
[2021-04-01] MEDS ORDERED: Clinimix E 5%-15% SOLUTION 2,000 ML with MVI, adult with vitamin K 10 ML IVC SCH (17:00)
[2021-04-01] MEDS: Pantoprazole 40 MG VIAL IVP SCH (18:36)
[2021-04-01] MEDS: *HR* Promethazine 25 MG/ML VIAL IM PRN (21:02)
[2021-04-01] MEDS ORDERED: Albumin 25% 25gram/100mL 25 GM/100 ML IV.SOLN IVPB ONE (22:04)
[2021-04-02 01:02] LABS: Hematocrit 26.8 % (35.3-44.9)
[2021-04-02 01:03] LABS: Hemoglobin 8.6 g/dL (11.5-15.4)
[2021-04-02] MEDS: Acetaminophen IV 1,000 MG/100 ML BAG IVPB SCH ×3 (01:11→17:44)
[2021-04-02] MEDS: Piperacillin/Tazobactam 3.375 GM in 0.9 % Sodium Chloride Mini Bag 100 ML IVPB SCH ×3 (01:13→17:25)
[2021-04-02] MEDS: Insulin LISPRO 300 UNITS/3 ML VIAL SUBQ SCH ×4 (01:14→20:16)
[2021-04-02] MEDS: *HR* Promethazine 25 MG/ML VIAL IM PRN (04:39)
[2021-04-02] MEDS: Pantoprazole 40 MG VIAL IVP SCH ×2 (06:12→17:26)
[2021-04-02 06:41] LABS: Basophils % 0.1 %; Hematocrit 22.6 % (35.3-44.9); Hemoglobin 7.3 g/dL (11.5-15.4); Immature Granulocytes % 1.3 % (0-4); Lymphocytes # 1.7 K/mcL (0.6-4.6); Lymphocytes % 8.1 %; Mean Corpuscular HGB Conc 32.3 g/dL (31.6-35.5); Mean Corpuscular Hemoglobin 28.1 pg (28.0-33.3); Mean Corpuscular Volume 86.9 fL (83.0-100.0); Mean Platelet Volume 10.5 fL (9.4-12.4); Monocytes # 2.2 K/mcL (0.0-1.3); Monocytes % 10.6 %; Neutrophils # 16.4 K/mcL (1.6-8.9); Platelet Count 300 K/mcL (140-400); Red Cell Distribution Width 15.1 % (11.5-14.5); Segmented Neutrophils % 79.9 %; White Blood Count 20.5 K/mcL (4.3-11.1)
[2021-04-02 06:59] LABS: Calcium 9.6 mg/dL (8.6-10.3); Phosphorous 4.2 mg/dL (2.7-4.5); Potassium 4.3 mEq/L (3.5-5.1)
[2021-04-02] MEDS: Ringers Solution, Lactated 1,000 ML IVC SCH ×2 (09:06→17:43)
[2021-04-02 13:13] LABS: Bilirubin,Urine Negative (Negative); Blood,Urine Large (Negative); Clarity,Urine Ex.Turbid (Clear); Color,Urine Yellow (Yellow); Glucose,Urine (UA) Normal (Normal); Ketones,Urine Negative (Negative); Leukocyte Esterase,Urine Negative (Negative); Nitrite,Urine Negative (Negative); PH,Urine 5.5 pH Units (5.0-8.0); Protein,Urine 100 mg/dL (Neg-Trace); Specific Gravity,Urine > 1.030 (1.010-1.025); Urobilinogen,Urine Normal (Normal)
[2021-04-02] MEDS ORDERED: *HR* HYDROmorphone (PF) 1 MG/ML SYRINGE IVP PRN (13:20)
[2021-04-02] MEDS ORDERED: *HR* FentaNYL (PF) 100 MCG/2 ML VIAL IVP ONE (13:25)
[2021-04-02 13:29] LABS: Mucus,Urine Few per lpf (None-Few)
[2021-04-02 13:30] LABS: Granular Casts,Urine Moderate per lpf (None Seen); WBC,Urine 0-3 per hpf (0-3)
[2021-04-02 13:31] LABS: Amorphous Sediment,Urine Moderate per hpf (None-Few); Bacteria,Urine Moderate per hpf (None-Few); RBC,Urine 15-30 per hpf (0-3); Renal Epithelial Cells,Urine Few per hpf (None-Few); Transitional Epi Cells,Urine Few per hpf (None-Few)
[2021-04-02 14:00] LABS: Protein/Creatinine Ratio,Urine 1.89 mg/mg (0.00-0.20)
[2021-04-02 15:05] LABS: Prothrombin Time 22.4 Seconds (9.4-12.1)
[2021-04-02] MEDS ORDERED: Clinimix E 5%-15% SOLUTION 2,000 ML with MVI, adult with vitamin K 10 ML IVC SCH (17:00)
[2021-04-02] MEDS: *HR* FentaNYL (PF) 100 MCG/2 ML VIAL IVP PRN (20:10)
[2021-04-03] MEDS: Acetaminophen IV 1,000 MG/100 ML BAG IVPB SCH ×3 (00:32→15:57)
[2021-04-03] MEDS: *HR* FentaNYL (PF) 100 MCG/2 ML VIAL IVP PRN ×5 (00:33→20:21)
[2021-04-03] MEDS: Piperacillin/Tazobactam 3.375 GM in 0.9 % Sodium Chloride Mini Bag 100 ML IVPB SCH ×3 (00:35→15:54)
[2021-04-03] MEDS: Ringers Solution, Lactated 1,000 ML IVC SCH (01:08)
[2021-04-03] MEDS: Insulin LISPRO 300 UNITS/3 ML VIAL SUBQ SCH ×4 (01:10→22:50)
[2021-04-03] MEDS: *HR* Promethazine 25 MG/ML VIAL IM PRN (04:26)
[2021-04-03] MEDS: Pantoprazole 40 MG VIAL IVP SCH ×2 (05:38→20:22)
[2021-04-03 06:14] LABS: Basophils % 0.1 %; Mean Platelet Volume 10.6 fL (9.4-12.4); Red Cell Distribution Width 15.3 % (11.5-14.5)
[2021-04-03 06:16] LABS: Eosinophils # 0.1 K/mcL (0.0-0.6); Eosinophils % 0.5 %; Hematocrit 16.8 % (35.3-44.9); Immature Granulocytes % 0.5 % (0-4); Lymphocytes # 1.1 K/mcL (0.6-4.6); Lymphocytes % 8.3 %; Mean Corpuscular Hemoglobin 27.5 pg (28.0-33.3); Mean Corpuscular Volume 88.9 fL (83.0-100.0); Monocytes # 0.9 K/mcL (0.0-1.3); Monocytes % 6.8 %; Platelet Count 240 K/mcL (140-400); Red Blood Count 1.89 M/mcL (3.82-4.97); Segmented Neutrophils % 83.8 %; White Blood Count 13.1 K/mcL (4.3-11.1)
[2021-04-03 06:20] LABS: Hemoglobin 5.2 g/dL (11.5-15.4)
[2021-04-03 06:35] LABS: Phosphorous 3.3 mg/dL (2.7-4.5)
[2021-04-03 06:40] LABS: Calcium 8.9 mg/dL (8.6-10.3)
[2021-04-03 06:43] LABS: INR 1.3; Prothrombin Time 15.4 Seconds (9.4-12.1)
[2021-04-03] MEDS ORDERED: 0.9 % Sodium Chloride 500 ML IVC ONE ×2 (09:13→17:24)
[2021-04-03] MEDS: Bisacodyl 10 MG RECTAL SUPPOSITORY RC SCH (14:07)
[2021-04-03] MEDS ORDERED: Clinimix E 5%-15% SOLUTION 2,000 ML with MVI, adult with vitamin K 10 ML IVC SCH (17:00)
[2021-04-03 20:29] LABS: Basophils % 0.1 %; Eosinophils # 0.1 K/mcL (0.0-0.6); Hematocrit 20.2 % (35.3-44.9); Hemoglobin 6.6 g/dL (11.5-15.4); Immature Granulocytes % 0.9 % (0-4); Lymphocytes # 0.7 K/mcL (0.6-4.6); Lymphocytes % 8.8 %; Mean Corpuscular HGB Conc 32.7 g/dL (31.6-35.5); Mean Corpuscular Hemoglobin 28.7 pg (28.0-33.3); Mean Corpuscular Volume 87.8 fL (83.0-100.0); Mean Platelet Volume 10.5 fL (9.4-12.4); Monocytes # 0.5 K/mcL (0.0-1.3); Monocytes % 5.5 %; Neutrophils # 6.8 K/mcL (1.6-8.9); Platelet Count 204 K/mcL (140-400); Red Cell Distribution Width 14.9 % (11.5-14.5); Segmented Neutrophils % 83.7 %; White Blood Count 8.1 K/mcL (4.3-11.1)
[2021-04-03] MEDS: Ondansetron 4 MG/2 ML VIAL IVP PRN (21:35)
[2021-04-04] MEDS: *HR* Promethazine 25 MG/ML VIAL IM PRN (00:06)
[2021-04-04] MEDS: Acetaminophen IV 1,000 MG/100 ML BAG IVPB SCH ×3 (00:11→17:15)
[2021-04-04] MEDS: Fluconazole 400 MG/200 ML 400 MG/200 ML BAG IVPB SCH ×2 (00:40→09:10)
[2021-04-04] MEDS: Piperacillin/Tazobactam 3.375 GM in 0.9 % Sodium Chloride Mini Bag 100 ML IVPB SCH ×3 (00:57→16:44)
[2021-04-04] MEDS: Ringers Solution, Lactated 1,000 ML IVC SCH (03:39)
[2021-04-04] MEDS: Pantoprazole 40 MG VIAL IVP SCH ×2 (05:47→16:47)
[2021-04-04] MEDS: Insulin LISPRO 300 UNITS/3 ML VIAL SUBQ SCH ×4 (05:57→18:44)
[2021-04-04] MEDS ORDERED: Orphenadrine 60 MG/2 ML VIAL IVP PRN (06:45)
[2021-04-04 07:09] LABS: INR 1.3; Prothrombin Time 15.1 Seconds (9.4-12.1)
[2021-04-04 07:24] LABS: Magnesium 2.1 mg/dL (1.6-2.6); Phosphorous 5.2 mg/dL (2.7-4.5)
[2021-04-04] MEDS: Ipratropium/Albuterol Neb 3 ML IH SCH ×5 (07:42→23:03)
[2021-04-04 08:26] LABS: Basophils % 0.1 %; Eosinophils # 0.1 K/mcL (0.0-0.6); Eosinophils % 1.2 %; Hematocrit 20.9 % (35.3-44.9); Hemoglobin 6.6 g/dL (11.5-15.4); Immature Granulocytes % 1.1 % (0-4); Lymphocytes # 0.7 K/mcL (0.6-4.6); Lymphocytes % 9.9 %; Mean Corpuscular HGB Conc 31.6 g/dL (31.6-35.5); Mean Corpuscular Hemoglobin 28.2 pg (28.0-33.3); Mean Platelet Volume 10.4 fL (9.4-12.4); Monocytes # 0.5 K/mcL (0.0-1.3); Monocytes % 6.6 %; Neutrophils # 5.9 K/mcL (1.6-8.9); Nucleated Red Blood Cells 0.4 /100 WBC (0); Platelet Count 215 K/mcL (140-400); Red Blood Count 2.34 M/mcL (3.82-4.97); Segmented Neutrophils % 81.1 %; White Blood Count 7.3 K/mcL (4.3-11.1)
[2021-04-04 09:09] LABS: Mean Corpuscular Volume 89.3 fL (83.0-100.0)
[2021-04-04] MEDS: Bisacodyl 10 MG RECTAL SUPPOSITORY RC SCH ×2 (09:12→09:53)
[2021-04-04 10:22] LABS: BUN/Creatinine Ratio 24 (6-26); Blood Urea Nitrogen 24 mg/dL (6-20); Carbon Dioxide 26 mEq/L (23-29); Chloride 104 mEq/L (98-107); Glucose 87 mg/dL (70-105); Osmolality,Calculated 283 (280-300); Potassium 4.1 mEq/L (3.5-5.1); Sodium 135 mEq/L (136-145); eGFR For African Americans > 60 (> 60); eGFR For Non-African Americans > 60 (> 60)
[2021-04-04 13:11] LABS: Adenovirus Not Detected (Not Detect); Coronavirus 229E Not Detected (Not Detect); Coronavirus HKU1 Not Detected (Not Detect); Coronavirus NL63 Not Detected (Not Detect); Coronavirus OC43 Not Detected (Not Detect); Human Metapneumovirus Not Detected (Not Detect); Human Rhinovirus/Enterovirus Not Detected (Not Detect); SARS-CoV-2 Not Detected (Not Detect)
[2021-04-04 13:12] LABS: Bordetella Pertussis Not Detected (Not Detect); Chlamydophila pneumoniae Not Detected (Not Detect); Influenza A Subtype 2009 H1 Not Detected (Not Detect); Influenza B Not Detected (Not Detect); Mycoplasma pneumoniae Not Detected (Not Detect); Parainfluenza Virus 1 Not Detected (Not Detect); Parainfluenza Virus 2 Not Detected (Not Detect); Parainfluenza Virus 3 Not Detected (Not Detect); Parainfluenza Virus 4 Not Detected (Not Detect); Respiratory Syncytial Virus Not Detected (Not Detect)
[2021-04-04] MEDS ORDERED: 0.9 % Sodium Chloride 250 ML ONE (13:14)
[2021-04-04] MEDS: Ondansetron 4 MG/2 ML VIAL IVP PRN (15:24)
[2021-04-04] MEDS: Metoclopramide 20 MG in 0.9 % Sodium Chloride 50 ML IVPB SCH ×2 (16:49→20:43)
[2021-04-04] MEDS ORDERED: Clinimix E 5%-15% SOLUTION 2,000 ML with MVI, adult with vitamin K 10 ML IVC SCH (17:00)
[2021-04-04 18:29] LABS: Hematocrit 23.2 % (35.3-44.9); Hemoglobin 7.4 g/dL (11.5-15.4)
[2021-04-05] MEDS: Acetaminophen IV 1,000 MG/100 ML BAG IVPB SCH ×2 (00:23→23:56)
[2021-04-05] MEDS: Ondansetron 4 MG/2 ML VIAL IVP PRN ×2 (00:29→14:15)
[2021-04-05] MEDS: Piperacillin/Tazobactam 3.375 GM in 0.9 % Sodium Chloride Mini Bag 100 ML IVPB SCH ×3 (00:32→16:30)
[2021-04-05] MEDS: Insulin LISPRO 300 UNITS/3 ML VIAL SUBQ SCH ×4 (00:33→17:50)
[2021-04-05 01:02] LABS: Basophils % 0.3 %; Eosinophils # 0.1 K/mcL (0.0-0.6); Eosinophils % 1.5 %; Hematocrit 22.1 % (35.3-44.9); Hemoglobin 7.1 g/dL (11.5-15.4); Immature Granulocytes % 1.3 % (0-4); Lymphocytes # 0.7 K/mcL (0.6-4.6); Lymphocytes % 9.3 %; Mean Corpuscular HGB Conc 32.1 g/dL (31.6-35.5); Mean Corpuscular Hemoglobin 28.3 pg (28.0-33.3); Mean Platelet Volume 10.2 fL (9.4-12.4); Monocytes # 0.6 K/mcL (0.0-1.3); Monocytes % 8.2 %; Neutrophils # 5.9 K/mcL (1.6-8.9); Nucleated Red Blood Cells 0.3 /100 WBC (0); Platelet Count 208 K/mcL (140-400); Red Blood Count 2.51 M/mcL (3.82-4.97); Red Cell Distribution Width 15.5 % (11.5-14.5); Segmented Neutrophils % 79.4 %; White Blood Count 7.5 K/mcL (4.3-11.1)
[2021-04-05 01:09] LABS: INR 1.3; Prothrombin Time 15.3 Seconds (9.4-12.1)
[2021-04-05 01:23] LABS: BUN/Creatinine Ratio 22 (6-26); Blood Urea Nitrogen 17 mg/dL (6-20); Calcium 9.1 mg/dL (8.6-10.3); Carbon Dioxide 23 mEq/L (23-29); Chloride 102 mEq/L (98-107); Glucose 151 mg/dL (70-105); Osmolality,Calculated 280 (280-300); Sodium 133 mEq/L (136-145); eGFR For African Americans > 60 (> 60); eGFR For Non-African Americans > 60 (> 60)
[2021-04-05] MEDS: Ipratropium/Albuterol Neb 3 ML IH SCH ×6 (03:28→23:44)
[2021-04-05] MEDS: Pantoprazole 40 MG VIAL IVP SCH ×2 (05:41→17:50)
[2021-04-05] MEDS: Metoclopramide 20 MG in 0.9 % Sodium Chloride 50 ML IVPB SCH ×2 (06:38→13:47)
[2021-04-05] MEDS: Fluconazole 400 MG/200 ML 400 MG/200 ML BAG IVPB SCH (09:15)
[2021-04-05] MEDS: Bisacodyl 10 MG RECTAL SUPPOSITORY RC SCH (09:36)
[2021-04-05] MEDS ORDERED: Acetaminophen IV 1,000 MG/100 ML BAG IVPB ONE (14:15)
[2021-04-05] MEDS ORDERED: Clinimix E 5%-15% SOLUTION 2,000 ML with MVI, adult with vitamin K 10 ML IVC SCH (17:00)
[2021-04-05] MEDS: *HR* Promethazine 25 MG/ML VIAL IM PRN (22:24)
[2021-04-06] MEDS: Piperacillin/Tazobactam 3.375 GM in 0.9 % Sodium Chloride Mini Bag 100 ML IVPB SCH ×3 (00:01→16:58)
[2021-04-06] MEDS: Insulin LISPRO 300 UNITS/3 ML VIAL SUBQ SCH ×6 (00:06→20:24)
[2021-04-06] MEDS ORDERED: Famotidine 20 MG/2 ML VIAL IVP ONE (00:15)
[2021-04-06] MEDS: Ipratropium/Albuterol Neb 3 ML IH SCH ×6 (04:20→23:39)
[2021-04-06 04:52] LABS: Basophils % 0.3 %; Eosinophils # 0.3 K/mcL (0.0-0.6); Eosinophils % 3.6 %; Hematocrit 22.7 % (35.3-44.9); Hemoglobin 7.3 g/dL (11.5-15.4); Immature Granulocytes % 3.3 % (0-4); Lymphocytes # 0.9 K/mcL (0.6-4.6); Lymphocytes % 13.5 %; Mean Corpuscular HGB Conc 32.2 g/dL (31.6-35.5); Mean Corpuscular Hemoglobin 28.9 pg (28.0-33.3); Mean Corpuscular Volume 89.7 fL (83.0-100.0); Mean Platelet Volume 10.5 fL (9.4-12.4); Monocytes # 0.9 K/mcL (0.0-1.3); Monocytes % 12.2 %; Neutrophils # 4.7 K/mcL (1.6-8.9); Nucleated Red Blood Cells 0.6 /100 WBC (0); Platelet Count 249 K/mcL (140-400); Red Blood Count 2.53 M/mcL (3.82-4.97); Red Cell Distribution Width 16.1 % (11.5-14.5); Segmented Neutrophils % 67.1 %
[2021-04-06 05:06] LABS: INR 1.4; Prothrombin Time 16.1 Seconds (9.4-12.1)
[2021-04-06 05:13] LABS: BUN/Creatinine Ratio 22 (6-26); Blood Urea Nitrogen 15 mg/dL (6-20); Calcium 9.6 mg/dL (8.6-10.3); Carbon Dioxide 26 mEq/L (23-29); Chloride 104 mEq/L (98-107); Glucose 162 mg/dL (70-105); Osmolality,Calculated 286 (280-300); Phosphorous 2.6 mg/dL (2.7-4.5); Potassium 4.1 mEq/L (3.5-5.1); Sodium 136 mEq/L (136-145); eGFR For African Americans > 60 (> 60); eGFR For Non-African Americans > 60 (> 60)
[2021-04-06] MEDS: Acetaminophen IV 1,000 MG/100 ML BAG IVPB SCH ×3 (05:58→17:17)
[2021-04-06] MEDS: Pantoprazole 40 MG VIAL IVP SCH ×2 (06:06→16:55)
[2021-04-06] MEDS: Fluconazole 400 MG/200 ML 400 MG/200 ML BAG IVPB SCH (07:31)
[2021-04-06] MEDS: Bisacodyl 10 MG RECTAL SUPPOSITORY RC SCH (07:42)
[2021-04-06] MEDS: Ondansetron 4 MG/2 ML VIAL IVP PRN (08:02)
[2021-04-06] MEDS: *HR* FentaNYL (PF) 100 MCG/2 ML VIAL IVP PRN ×2 (11:37→16:56)
[2021-04-06] MEDS: *HR* Promethazine 25 MG/ML VIAL IM PRN (14:42)
[2021-04-06] MEDS ORDERED: Clinimix E 5%-15% SOLUTION 2,000 ML with MVI, adult with vitamin K 10 ML IVC SCH (17:00)
[2021-04-07] MEDS: Insulin LISPRO 300 UNITS/3 ML VIAL SUBQ SCH ×6 (00:20→20:45)
[2021-04-07] MEDS: Acetaminophen IV 1,000 MG/100 ML BAG IVPB SCH ×4 (00:24→16:59)
[2021-04-07] MEDS: *HR* FentaNYL (PF) 100 MCG/2 ML VIAL IVP PRN (00:33)
[2021-04-07] MEDS: Piperacillin/Tazobactam 3.375 GM in 0.9 % Sodium Chloride Mini Bag 100 ML IVPB SCH ×3 (00:46→16:40)
[2021-04-07] MEDS ORDERED: *HR* Metoprolol 5 MG/5 ML VIAL IVP ONE ×2 (02:02→04:37)
[2021-04-07] MEDS: *HR* LORazepam 2 MG/ML VIAL IVP PRN ×2 (02:23→13:15)
[2021-04-07] MEDS: Ipratropium/Albuterol Neb 3 ML IH SCH ×6 (04:00→23:26)
[2021-04-07] MEDS: Pantoprazole 40 MG VIAL IVP SCH ×2 (05:18→16:40)
[2021-04-07 05:38] LABS: Basophils % 0.2 %; Eosinophils # 0.4 K/mcL (0.0-0.6); Eosinophils % 3.5 %; Hematocrit 24.8 % (35.3-44.9); Hemoglobin 7.8 g/dL (11.5-15.4); Immature Granulocytes % 4.5 % (0-4); Lymphocytes % 10.1 %; Mean Corpuscular HGB Conc 31.5 g/dL (31.6-35.5); Mean Corpuscular Volume 88.9 fL (83.0-100.0); Mean Platelet Volume 10.5 fL (9.4-12.4); Monocytes # 0.7 K/mcL (0.0-1.3); Monocytes % 7.2 %; Neutrophils # 7.7 K/mcL (1.6-8.9); Nucleated Red Blood Cells 0.7 /100 WBC (0); Platelet Count 320 K/mcL (140-400); Red Blood Count 2.79 M/mcL (3.82-4.97); Red Cell Distribution Width 16.1 % (11.5-14.5); Segmented Neutrophils % 74.5 %; White Blood Count 10.3 K/mcL (4.3-11.1)
[2021-04-07 05:51] LABS: BUN/Creatinine Ratio 29 (6-26); Blood Urea Nitrogen 17 mg/dL (6-20); Calcium 9.6 mg/dL (8.6-10.3); Carbon Dioxide 25 mEq/L (23-29); Chloride 102 mEq/L (98-107); Glucose 182 mg/dL (70-105); Magnesium 1.9 mg/dL (1.6-2.6); Osmolality,Calculated 284 (280-300); Phosphorous 2.6 mg/dL (2.7-4.5); Sodium 134 mEq/L (136-145); eGFR For African Americans > 60 (> 60); eGFR For Non-African Americans > 60 (> 60)
[2021-04-07] MEDS: Bisacodyl 10 MG RECTAL SUPPOSITORY RC SCH (08:57)
[2021-04-07] MEDS: Fluconazole 400 MG/200 ML 400 MG/200 ML BAG IVPB SCH (08:58)
[2021-04-07] MEDS: Ondansetron 4 MG/2 ML VIAL IVP PRN (09:15)
[2021-04-07] MEDS ORDERED: *HR* Heparin 5,000 UNIT/ML VIAL IVP PRN ×2 (16:01)
[2021-04-07] MEDS ORDERED: Heparin 25,000UNIT/250ML 1/2NS 25,000 UNIT/250 ML IV.SOLN IVC SCH (16:15)
[2021-04-07] MEDS: Gabapentin 400 MG CAPSULE PO SCH ×2 (16:40→20:44)
[2021-04-07] MEDS ORDERED: Clinimix E 5%-15% SOLUTION 2,000 ML with MVI, adult with vitamin K 10 ML IVC SCH (17:00)
[2021-04-07 17:44] LABS: Heparin anti-factor XA UFH < 0.04 IU/mL (0.30-0.70)
[2021-04-07 17:45] LABS: INR 1.4
[2021-04-07] MEDS: *HR* Heparin 5,000 UNIT/ML VIAL SQ SCH (20:45)
[2021-04-08] MEDS: Insulin LISPRO 300 UNITS/3 ML VIAL SUBQ SCH ×6 (00:17→19:32)
[2021-04-08] MEDS: Acetaminophen IV 1,000 MG/100 ML BAG IVPB SCH ×2 (00:19→05:13)
[2021-04-08] MEDS: Piperacillin/Tazobactam 3.375 GM in 0.9 % Sodium Chloride Mini Bag 100 ML IVPB SCH ×3 (00:45→17:40)
[2021-04-08 01:27] LABS: BUN/Creatinine Ratio 29 (6-26); Blood Urea Nitrogen 16 mg/dL (6-20); Calcium 9.5 mg/dL (8.6-10.3); Carbon Dioxide 25 mEq/L (23-29); Chloride 102 mEq/L (98-107); Glucose 127 mg/dL (70-105); Osmolality,Calculated 283 (280-300); Potassium 4.3 mEq/L (3.5-5.1); Sodium 135 mEq/L (136-145); Triglycerides 156 mg/dL (< 150); eGFR For African Americans > 60 (> 60); eGFR For Non-African Americans > 60 (> 60)
[2021-04-08 02:35] LABS: Hematocrit 25.2 % (35.3-44.9); Mean Corpuscular HGB Conc 31.7 g/dL (31.6-35.5); Mean Corpuscular Hemoglobin 28.5 pg (28.0-33.3); Mean Corpuscular Volume 89.7 fL (83.0-100.0); Mean Platelet Volume 10.2 fL (9.4-12.4); Platelet Count 416 K/mcL (140-400); Red Blood Count 2.81 M/mcL (3.82-4.97); Red Cell Distribution Width 16.1 % (11.5-14.5); White Blood Count 13.6 K/mcL (4.3-11.1)
[2021-04-08] MEDS: Ipratropium/Albuterol Neb 3 ML IH SCH ×6 (04:11→23:52)
[2021-04-08] MEDS: *HR* Heparin 5,000 UNIT/ML VIAL SQ SCH (05:13)
[2021-04-08] MEDS: Pantoprazole 40 MG VIAL IVP SCH (05:13)
[2021-04-08] MEDS: Gabapentin 400 MG CAPSULE PO SCH ×4 (09:13→20:21)
[2021-04-08] MEDS: Sucralfate 1 GM TABLET PO SCH ×4 (09:32→21:34)
[2021-04-08] MEDS: *HR* OxyCODONE/APAP 5/325 TABLET PO PRN ×2 (09:32→17:40)
[2021-04-08] MEDS: Fluconazole 400 MG/200 ML 400 MG/200 ML BAG IVPB SCH (09:33)
[2021-04-08] MEDS ORDERED: *HR* Heparin 5,000 UNIT/ML VIAL IVP PRN ×4 (09:59→22:07)
[2021-04-08] MEDS ORDERED: Heparin 25,000UNIT/250ML 1/2NS 25,000 UNIT/250 ML IV.SOLN IVC SCH ×2 (10:00→22:07)
[2021-04-08] MEDS: *HR* FentaNYL (PF) 100 MCG/2 ML VIAL IVP PRN ×2 (13:19→21:33)
[2021-04-08] MEDS: *HR* LORazepam 2 MG/ML VIAL IVP PRN (15:36)
[2021-04-08] MEDS ORDERED: Ondansetron 4 MG/2 ML VIAL IVP PRN (22:07)
[2021-04-08] MEDS ORDERED: Saliva Stimulant 44.3ml BOTTLE PO PRN (22:07)
[2021-04-08] MEDS ORDERED: Nitroglycerin 0.4 MG TAB.SUBL SL PRN (22:07)
[2021-04-08] MEDS ORDERED: D10% in Water 500 ML IVC PRN (22:07)
[2021-04-08] MEDS ORDERED: Dextrose Gel 15 GM/37.5 ML TUBE PO PRN ×2 (22:07)
[2021-04-08] MEDS ORDERED: *HR* Dextrose 50 % in Water (Vial) 50 ML VIAL IVP PRN (22:07)
[2021-04-08] MEDS ORDERED: Naloxone 0.4 MG/ML INJ IVP PRN (22:07)
[2021-04-08] MEDS ORDERED: D5% in Water 1,000 ML IVC PRN (22:07)
[2021-04-08] MEDS ORDERED: *HR* LORazepam 2 MG/ML VIAL IVP PRN (22:07)
[2021-04-08] MEDS ORDERED: *HR* Promethazine 25 MG/ML VIAL IM PRN (22:07)
[2021-04-08] MEDS ORDERED: *HR* FentaNYL (PF) 100 MCG/2 ML VIAL IVP PRN (22:07)
[2021-04-08] MEDS ORDERED: Chloraseptic Spray 177 ML BOTTLE MM PRN (22:07)
[2021-04-09] MEDS: Piperacillin/Tazobactam 3.375 GM in 0.9 % Sodium Chloride Mini Bag 100 ML IVPB SCH ×3 (00:01→16:27)
[2021-04-09] MEDS: Insulin LISPRO 300 UNITS/3 ML VIAL SUBQ SCH ×5 (00:19→16:27)
[2021-04-09] MEDS ORDERED: Heparin 25,000UNIT/250ML 1/2NS 25,000 UNIT/250 ML IV.SOLN IVC SCH ×2 (03:30→04:30)
[2021-04-09] MEDS: Ipratropium/Albuterol Neb 3 ML IH SCH ×4 (03:54→16:41)
[2021-04-09 05:42] LABS: Basophils # 0.1 K/mcL (0.0-0.2); Basophils % 0.5 %; Eosinophils # 0.3 K/mcL (0.0-0.6); Eosinophils % 2.1 %; Hematocrit 26.9 % (35.3-44.9); Hemoglobin 8.2 g/dL (11.5-15.4); Lymphocytes # 1.9 K/mcL (0.6-4.6); Lymphocytes % 11.5 %; Mean Corpuscular HGB Conc 30.5 g/dL (31.6-35.5); Mean Corpuscular Hemoglobin 27.8 pg (28.0-33.3); Mean Corpuscular Volume 91.2 fL (83.0-100.0); Mean Platelet Volume 10.6 fL (9.4-12.4); Monocytes # 1.3 K/mcL (0.0-1.3); Monocytes % 7.8 %; Neutrophils # 11.4 K/mcL (1.6-8.9); Nucleated Red Blood Cells 0.7 /100 WBC (0); Platelet Count 490 K/mcL (140-400); Red Blood Count 2.95 M/mcL (3.82-4.97); Red Cell Distribution Width 16.5 % (11.5-14.5); Segmented Neutrophils % 70.1 %; White Blood Count 16.2 K/mcL (4.3-11.1)
[2021-04-09 06:15] LABS: BUN/Creatinine Ratio 23 (6-26); Blood Urea Nitrogen 17 mg/dL (6-20); Calcium 9.5 mg/dL (8.6-10.3); Carbon Dioxide 24 mEq/L (23-29); Chloride 101 mEq/L (98-107); Glucose 105 mg/dL (70-105); Osmolality,Calculated 276 (280-300); Potassium 4.7 mEq/L (3.5-5.1); Sodium 132 mEq/L (136-145); eGFR For African Americans > 60 (> 60); eGFR For Non-African Americans > 60 (> 60)
[2021-04-09 06:58] LABS: Hypochromasia Present (Not Present); Reactive Lymphocytes Present (Not Present)
[2021-04-09] MEDS: Sucralfate 1 GM TABLET PO SCH ×3 (08:24→16:27)
[2021-04-09] MEDS: Gabapentin 400 MG CAPSULE PO SCH ×3 (08:25→16:27)
[2021-04-09] MEDS: *HR* OxyCODONE/APAP 5/325 TABLET PO PRN ×2 (08:25→16:27)
[2021-04-09] MEDS ORDERED: Cyanocobalamin (B-12) 1,000 MCG TABLET PO SCH ×2 (09:00)
[2021-04-09] MEDS ORDERED: Loratadine 10 MG TABLET PO SCH ×2 (09:00)
[2021-04-09] MEDS ORDERED: Fluconazole 400 MG/200 ML 400 MG/200 ML BAG IVPB SCH (09:00)
[2021-04-09] MEDS ORDERED: Metoprolol XL (24 HR) Succ 25 MG TAB.ER.24H PO SCH ×2 (09:00)
[2021-04-09 10:13] LABS: INR 1.7; Prothrombin Time 19.3 Seconds (9.4-12.1)
[2021-04-09 14:14] VITALS: BP 99/66; PULSE 87; TEMP 98.6; O2SAT 96
[2021-04-09] MEDS ORDERED: *HR* Enoxaparin 30 MG/0.3 ML SYRINGE SQ ONE (15:27)
[2021-04-09] MEDS ORDERED: Enoxaparin Weight Dosing SQ ONE (16:18)
== END 2021-04-09 19:12 | disposition home health service (06) | DRG 329 ==
LOC: EMEROOARM 16:35 → 3ANU 16:35 → SUATTDRO 22:29 → 3ANU 22:40 → SUATTDRO 04-01 12:15 → 2NENU 04-03 17:33 → 3ANU 04-08 21:12
PROVIDERS: ADMIT Internal Medicine; ATTEND Student in an Organized Health Care Education/Training Program